=== PATIENT | female | born 1930 | race Caucasian/White ===

== ENCOUNTER 2016-10-07 11:32 | Inpatient (IN) | payer OTHER ==
--- NOTE | 2016-10-07 11:50 | DR.SOBA ---
HPI - Time Seen Time seen: 11:46 - Primary Care Physician Primary Care Physician: Dominick OSBORN - HPI Comment HPI Comment: PATIENT HAVE HISTORY OF CAD S/P STENT PLACEMENT AND INDWELLING PACEMAKER PRESENTS WITH INTERMITTENT CHEST PAIN SHARP SUNSTRENAL AREA AND PROGRESSIVE SOB. PATIENT IS WEAK. SHE IS TAKING HER LASIX AND IS DIURESING. NO FEVER. SLIGHT PRODUCTIVE COUGH CLEAR SPUTUM. HAVE CARDIOLOGY APPOINTMENT NEXT WEEK. - Complaints Chief Complaint Doctors Comments: INCREASING SOB AND CHEST PAIN TIMES ONE WEEK. Chief Complaint:: PT. C/O SHORTNESS OF BREATH AND FATIGUE. PT. WAS SCHEDULED TO SEE DR. OSULLIVAN ON 10/13/16 DUE TO INTERMITTENT CHEST PAIN. - Reviewed Nurses Notes Reviewed: Yes - Source History Provided: Patient - Mode of Arrival Mode of Arrival: Ambulatory - Timing Onset of Chief Complaint: 09/30/16 - Duration Duration: Days - Context Onset:: At Rest, With Light Exertion PE Risk Factors:: None History of:: CHF Currently on:: Neither Prehospital Care:: O2 - Modifying Factors Worsens:: Exertion Improves:: Nothing - Associated Signs and Symptoms Associated Signs and Symptoms: Chest Pain, Leg Swelling - If Chest Pain Quality: Pressure like Location: Substernal - If Cough Cough: Nonproductive PMH - PMH Past Medical History: Yes Past Medical History: Coronary Artery Disease, Diabetes, Hypertension Past Surgical History: Yes Surgical History: Angioplasty/Stents, Hysterectomy, Other Past Surgical History Comment: 3 HERNIA REPAIRS - Family History History of Family Medical Conditions: Yes Family Medical History: Diabetes Mellitus, [place], Coronary Artery Disease - Social History Does patient currently use any type of tobacco product: No Have you used tobacco products in the last 12 months: No Type of Tobacco Use: None Does any household member use tobacco: No Alcohol Use: None Do you use any recreational Drugs:: No Lives With: Family Lives Where: Home - infectious screening In the last 2 months have you had wt loss of >10#?: NO Have you had fever, night sweats or hemotysis?: No Have you traveled outside the country in the last 6 months?: No Isolation: Standard ROS - Review of Systems Constitutional: Weakness, Fatigue. negative: Chills, Fever Eyes: No Symptoms Reported. negative: Eye Pain, Discharge ENTM: No Symptoms Reported. negative: Ear Pain, Nose Discharge, Nose Congestion , Throat Pain Respiratoy: Productive Cough, Short of Breath. negative: Wheezing, Hemoptysis Cardiovascular: Chest Pain, Edema Gastrointestinal/Abdominal: No Symptoms Reported. negative: Abdominal Pain, Nausea, Vomiting Genitourinary: No Symptoms Reported. negative: Dysuria, Hematuria Neurological: Weakness. negative: Headache, Dizziness Musculoskeletal: Muscle Pain Integumentary: No Symptoms Reported. negative: Change in Color, Rash Hematologic/Lymphatic: Easy Bruising Endocrine: No Symptoms Reported All Other Systems: Reviewed and Negative PE - Vital Signs Vitals: Temperature 97.8 F Pulse Rate 68 Respiratory Rate 17 Blood Pressure 152/63 O2 Sat by Pulse Oximetry 99 - General Limitations: No Limitations General Appearance: Alert - Head Head Exam: Normal Inspection - Eyes Eye exam: Normal Appearance - ENT ENT Exam: Normal External Ear Exam - Neck Neck Exam: Trachea Midline. negative: Tenderness, Meningismus, Lymphadenopathy - Chest Chest Inspection: Symmetric Chest Wall Rise. negative: Tenderness - Respiratory Respiratory Exam: Respiratory Distress. negative: Chest Wall Tenderness Respiratory Exam: Bilateral Rhonchi, Upper Rhonchi, Lower Rhonchi - Cardiovascular Cardiovascular Exam: Regular Rate, Normal Rhythm, Normal Heart Sounds - Abdominal Exam Abdominal Exam: Normal Bowel Sounds, Soft. negative: Tenderness - Extremities Extremities Exam: Edema - Back Back Exam: Normal Inspection - Neurologic Neurological Exam: Alert, Oriented X3 - Psychiatric Psychiatric Exam: Normal Affect, Normal Mood - Skin Skin Exam: Normal Color MDM - Additional Information Obtained Additional Information Obtained From: Family - Differential Diagnosis Differential Diagnosis: CHF, COPD, Dysrhythmia, Mycardial Infarction, Pneumonia , Pneumothorax, Respiratory Insufficiency Course - Treatment Treatment: SEE ORDERS - Education/Counseling Education/Counseling: Patient, Family, Education Educated On: Diagnosis ROR - Labs Reviewed Laboratory Results Reviewed?: Yes Result Diagrams: 10/08/16 03:25 10/08/16 03:25 Laboratory: WBC 6.0 X10^3/uL (3.6-10.0) 10/08/16 03:25 RBC 3.37 X10^6/uL (3.5-5.4) L 10/08/16 03:25 Hgb 10.6 g/dL (12.0-16.0) L 10/08/16 03:25 Hct 31.7 % (36.0-47.0) L 10/08/16 03:25 MCV 93.9 fL (80.0-100.0) 10/08/16 03:25 MCH 31.5 pg (27.0-34.0) 10/08/16 03:25 MCHC 33.5 g/dL (33.0-35.0) 10/08/16 03:25 RDW 13.0 % (11.6-16.5) 10/08/16 03:25 Plt Count 146 X10^3/uL (150.0-450.0) L 10/08/16 03:25 Plt Count Comment Adequate (ADEQUATE) 10/08/16 03:25 MPV 9.8 fL (7.4-11.0) 10/08/16 03:25 Neut % 63.7 % (42.0-75.0) 10/08/16 03:25 Lymph % 20.0 % (21.0-51.0) L 10/08/16 03:25 Emmet % 11.5 % (0.0-13.0) 10/08/16 03:25 Eos % 3.7 % (0.9-2.9) H 10/08/16 03:25 Baso % 1.1 % (0.2-1.0) H 10/08/16 03:25 Neut # 3.8 x10^3/uL (2.2-4.8) 10/08/16 03:25 Lymph # 1.2 X10^3/uL (1.3-2.9) L 10/08/16 03:25 Emmet # 0.7 x10^3/uL (0.3-0.8) 10/08/16 03:25 Eos # 0.2 x10^3/uL (0.0-0.2) 10/08/16 03:25 Baso # 0.1 X10^3/uL (0.0-0.1) 10/08/16 03:25 Absolute Nucleated RBC 0.1 /100WBC 10/08/16 03:25 Plt Clumps, EDTA Rare 10/08/16 03:25 Plt Morphology Comment Normal (NORMAL) 10/08/16 03:25 RBC Morphology Normal (NORMAL) 10/08/16 03:25 Sample Site Lba 10/07/16 13:50 ABG pH 7.520 (7.35-7.45) H 10/07/16 13:50 ABG pCO2 43.0 mmHg (35.0-45.0) 10/07/16 13:50 ABG pO2 27.0 mmHg (80.0-100.0) L* 10/07/16 13:50 ABG HCO3 35.1 mmol/L (22-26) H* 10/07/16 13:50 ABG O2 Saturation 60.0 % (90-100) L* 10/07/16 13:50 ABG Base Excess 11.0 mmol/L (-2.0-2.0) H 10/07/16 13:50 Von Test Na 10/07/16 13:50 A-a Gradient 147.0 mmHg 10/07/16 13:50 FiO2 32.000 10/07/16 13:50 Blood Gas Comments Carmina well cs 10/07/16 13:50 Sodium 145 mmol/L (136-145) 10/08/16 03:25 Corrected Sodium TNP 10/08/16 03:25 Potassium 3.2 mmol/L (3.5-5.1) L 10/08/16 03:25 Chloride 104 mmol/L (98-107) 10/08/16 03:25 Carbon Dioxide 32.2 mmol/L (21-32) H 10/08/16 03:25 BUN 37 mg/dL (7-18) H 10/08/16 03:25 Creatinine 2.45 mg/dL (0.55-1.02) H 10/08/16 03:25 Est GFR (MDRD) Af Amer 24 (>60) L 10/08/16 03:25 Est GFR (MDRD) Non-Af 20 (>60) L 10/08/16 03:25 Glucose 97 mg/dL (65-99) 10/08/16 03:25 Calcium 10.3 mg/dL (8.5-10.1) H 10/08/16 03:25 Corrected Calcium 11.1 mg/dL (8.5-10.1) H 10/08/16 03:25 Total Bilirubin 0.30 mg/dL (0.2-1.0) 10/08/16 03:25 AST 24 Units/L (15-37) 10/08/16 03:25 ALT 18 Units/L (12-78) 10/08/16 03:25 Alkaline Phosphatase 54 Units/L (46-116) 10/08/16 03:25 Creatine Kinase 47 Units/L (26-192) 10/08/16 00:35 CK-MB (CK-2) < 1.0 ng/mL (0-4.0) 10/08/16 00:35 CK/CKMB % Calc 2.1 % (<4) 10/08/16 00:35 Troponin I 0.02 ng/mL (0-1.5) 10/08/16 00:35 B-Natriuretic Peptide 597 pg/mL (0-79) H* 10/07/16 12:15 Total Protein 6.8 g/dL (6.4-8.2) 10/08/16 03:25 Albumin 3.0 g/dL (3.4-5.0) L 10/08/16 03:25 Globulin 3.8 g/dL (2.5-4.5) 10/08/16 03:25 Albumin/Globulin Ratio 0.8 Ratio (1.1-2.1) L 10/08/16 03:25 Specimen Type Clean catch urine 10/07/16 12:09 Urine Color Yellow (YELLOW) 10/07/16 12:09 Urine Appearance Clear (CLEAR) 10/07/16 12:09 Urine pH 7.0 (5.0 - 8.0) 10/07/16 12:09 Ur Specific [place] 1.010 (1.000-1.030) 10/07/16 12:09 Urine Protein Negative (NEGATIVE) 10/07/16 12:09 Urine Glucose (UA) Negative (NEGATIVE) 10/07/16 12:09 Urine Ketones Negative (NEGATIVE) 10/07/16 12:09 Urine Occult Blood Negative (NEGATIVE) 10/07/16 12:09 Urine Nitrite Negative (NEGATIVE) 10/07/16 12:09 Urine Bilirubin Negative (NEGATIVE) 10/07/16 12:09 Urine Urobilinogen Normal (NORMAL) 10/07/16 12:09 Ur Leukocyte Esterase 2+ (NEGATIVE) 10/07/16 12:09 Urine RBC 0-2 /HPF (NEGATIVE) 10/07/16 12:09 Urine WBC 0-5 /HPF (NEGATIVE) 10/07/16 12:09 Ur Squamous Epith Cells Moderate /HPF (NEGATIVE) 10/07/16 12:09 Ur Renal Epithelial Cell Few /HPF (NEGATIVE) 10/07/16 12:09 Urine Bacteria Trace /HPF (NEGATIVE) 10/07/16 12:09 Hyaline Casts Rare /LPF (NEGATIVE) 10/07/16 12:09 Ur Culture Indicated? No/not indicated 10/07/16 12:09 - XRAY XRAY Interpreted by: Radiologist XRAY Findings: REPORT DISCUSS WITH PATIENT - EKG Rhythm: Paced (EKG NOTED) - Diagnosis Discharge Problem: Dyspnea Qualifiers: Dyspnea type: shortness of breath Qualified Code(s): R06.02 - Shortness of breath Chest pain Qualifiers: Chest pain type: precordial pain Qualified Code(s): R07.2 - Precordial pain CHF (congestive heart failure) Qualifiers: Congestive heart failure type: combined Congestive heart failure chronicity: acute on chronic Qualified Code(s): I50.43 - Acute on chronic combined systolic (congestive) and diastolic (congestive) heart failure - Discharge Plan Disposition: ADMITTED INPATIENT Condition: Stable - Follow ups/Referrals - Instructions
[2016-10-07 12:35] LABS: BASOPHILS # (AUTO) 0.1 X10^3/uL (0.0-0.1); EOSINOPHILS # (AUTO) 0.1 x10^3/uL (0.0-0.2); EOSINOPHILS % (AUTO) 1.2 % (0.9-2.9); HEMATOCRIT 33.6 % (42.0-54.0); HEMOGLOBIN 11.2 g/dL (13.5-18.0); LYMPHOCYTES # (AUTO) 1.1 X10^3/uL (1.3-2.9); LYMPHOCYTES % (AUTO) 17.9 % (21.0-51.0); MEAN CORPUSCULAR HEMOGLOBIN 31.3 pg (27.0-34.0); MEAN CORPUSCULAR HGB CONC 33.3 g/dL (33.0-35.0); MEAN PLATELET VOLUME 9.2 fL (7.4-11.0); MONOCYTES # (AUTO) 0.6 x10^3/uL (0.3-0.8); MONOCYTES % (AUTO) 9.9 % (0.0-13.0); NEUTROPHILS # (AUTO) 4.3 x10^3/uL (2.2-4.8); PLATELET COUNT 149 X10^3/uL (150.0-450.0); RED BLOOD COUNT 3.57 X10^6/uL (4.7-6.0); RED CELL DISTRIBUTION WIDTH 13.1 % (11.6-16.5); WHITE BLOOD COUNT 6.2 X10^3/uL (3.6-10.0)
[2016-10-07 12:36] LABS: BILIRUBIN,URINE NEGATIVE (NEGATIVE); BLOOD/HEMOGLOBIN,URINE NEGATIVE (NEGATIVE); GLUCOSE, URINE NEGATIVE (NEGATIVE); KETONES,URINE NEGATIVE (NEGATIVE); LEUKOCYTE ESTERASE ,URINE 2+ (NEGATIVE); NITRITES,URINE NEGATIVE (NEGATIVE); PROTEIN,URINE NEGATIVE (NEGATIVE); UROBILINOGEN,URINE NORMAL (NORMAL)
--- NOTE | 2016-10-07 12:36 | RAD ---
HISTORY: Chest pain shortness of breath Study: Chest one view Comparison: None Findings: There is a pacemaker present on the left. The heart is enlarged. No congestive heart failure is note d. No acute alveolar infiltrates or pleural effusions are identified. The bony thorax is unremarkabl e. IMPRESSION: Cardiomegaly without congestive heart failure Lungs clear Reported By:
[2016-10-07 12:46] LABS: APPEARANCE,URINE CLEAR (CLEAR); BACTERIA,URINE TRACE /HPF (NEGATIVE); COLOR,URINE YELLOW (YELLOW); RBC,URINE 0-2 /HPF (NEGATIVE); RENAL EPITHELIAL CELLS,URINE FEW /HPF (NEGATIVE); SQUAMOUS EPITHELIAL CELL,UR MODERATE /HPF (NEGATIVE)
[2016-10-07 12:47] LABS: HYALINE CASTS, URINE RARE /LPF (NEGATIVE)
[2016-10-07 12:48] LABS: BLOOD UREA NITROGEN 36 mg/dL (7-18); CALCIUM 10.9 mg/dL (8.5-10.1); CARBON DIOXIDE 30.7 mmol/L (21-32); CHLORIDE 100 mmol/L (98-107); COR NA(FOR HYPERGLY) 140 mmol/L (136-145); CREATININE 2.62 mg/dL (0.70-1.30); GLUCOSE 125 mg/dL (65-99); SODIUM 139 mmol/L (136-145); TROPONIN I < 0.02 ng/mL (0-1.5); eGFR BLACK RACES 30 (>60); eGFR NON BLACK RACES 25 (>60)
[2016-10-07 12:50] LABS: B-TYPE NATRIURETIC PEPTIDE 597 pg/mL (0-79)
[2016-10-07 12:52] LABS: ALANINE AMINOTRANSFERASE 21 Units/L (12-78); ALBUMIN 3.5 g/dL (3.4-5.0); ALKALINE PHOSPHATASE 59 Units/L (46-116); ASPARTATE AMINO TRANSFERASE 21 Units/L (15-37); CKMB % 2.2 % (<4); CREATINE KINASE 50 Units/L (39-308); CREATINE KINASE MB 1.1 ng/mL (0-4.0); TOTAL PROTEIN 7.8 g/dL (6.4-8.2)
[2016-10-07 14:06] LABS: ABG HCO3 35.1 mmol/L (22-26)
[2016-10-07] MEDS ORDERED: NITROSTAT SL PRN (14:17)
[2016-10-07] MEDS: TAB-A-VITE PO SCH (15:36)
[2016-10-07] MEDS: ZAROXOYLN PO SCH (15:36)
[2016-10-07 19:01] LABS: CKMB % 2.6 % (<4); CREATINE KINASE MB 1.1 ng/mL (0-4.0); TROPONIN I 0.02 ng/mL (0-1.5)
[2016-10-07] MEDS: K-DUR TAB 20 MEQ PO SCH (20:06)
[2016-10-07] MEDS: PRAVACHOL PO SCH (20:06)
[2016-10-07] MEDS: COREG TAB 6.25 MG PO SCH (20:06)
[2016-10-07] MEDS: LASIX IVP SCH (20:06)
[2016-10-07] MEDS: TRAVATAN Z EACHEYE SCH (20:07)
[2016-10-07] MEDS: DUONEB 0.5 MG/3 MG NEB SCH (20:24)
[2016-10-07] MEDS ORDERED: [UNRECOGNIZED DRUG - OTHER] EACHEYE SCH (21:00)
[2016-10-07] MEDS ORDERED: [UNRECOGNIZED DRUG - OTHER] PO SCH (21:00)
[2016-10-08 01:26] LABS: CKMB % 2.1 % (<4); CREATINE KINASE 47 Units/L (26-192); CREATINE KINASE MB < 1.0 ng/mL (0-4.0); TROPONIN I 0.02 ng/mL (0-1.5)
[2016-10-08 05:42] LABS: ALANINE AMINOTRANSFERASE 18 Units/L (12-78); ALKALINE PHOSPHATASE 54 Units/L (46-116); ASPARTATE AMINO TRANSFERASE 24 Units/L (15-37); BLOOD UREA NITROGEN 37 mg/dL (7-18); CALCIUM 10.3 mg/dL (8.5-10.1); CARBON DIOXIDE 32.2 mmol/L (21-32); CHLORIDE 104 mmol/L (98-107); COR CA(FOR HYPOALB) 11.1 mg/dL (8.5-10.1); CREATININE 2.45 mg/dL (0.55-1.02); GLUCOSE 97 mg/dL (65-99); SODIUM 145 mmol/L (136-145); TOTAL PROTEIN 6.8 g/dL (6.4-8.2); eGFR BLACK RACES 24 (>60); eGFR NON BLACK RACES 20 (>60)
[2016-10-08 06:46] LABS: BASOPHILS # (AUTO) 0.1 X10^3/uL (0.0-0.1); EOSINOPHILS # (AUTO) 0.2 x10^3/uL (0.0-0.2); EOSINOPHILS % (AUTO) 3.7 % (0.9-2.9); MEAN CORPUSCULAR VOLUME 93.9 fL (80.0-100.0); MONOCYTES # (AUTO) 0.7 x10^3/uL (0.3-0.8)
[2016-10-08 07:03] LABS: BASOPHILS % (AUTO) 1.1 % (0.2-1.0); HEMATOCRIT 31.7 % (36.0-47.0); HEMOGLOBIN 10.6 g/dL (12.0-16.0); LYMPHOCYTES # (AUTO) 1.2 X10^3/uL (1.3-2.9); MEAN CORPUSCULAR HEMOGLOBIN 31.5 pg (27.0-34.0); MEAN CORPUSCULAR HGB CONC 33.5 g/dL (33.0-35.0); MEAN PLATELET VOLUME 9.8 fL (7.4-11.0); MONOCYTES % (AUTO) 11.5 % (0.0-13.0); NEUTROPHILS # (AUTO) 3.8 x10^3/uL (2.2-4.8); NEUTROPHILS % (AUTO) 63.7 % (42.0-75.0); PLATELET COUNT 146 X10^3/uL (150.0-450.0); RED BLOOD COUNT 3.37 X10^6/uL (3.5-5.4)
[2016-10-08 07:14] LABS: PLATELET MORPHOLOGY COMMENT NORMAL (NORMAL)
[2016-10-08] MEDS ORDERED: ZOFRAN INJ 4 MG VIAL IVP PRN (08:01)
[2016-10-08] MEDS ORDERED: CALCITRIOL PO SCH (09:00)
[2016-10-08] MEDS ORDERED: [UNRECOGNIZED DRUG - OTHER] PO SCH (09:00)
[2016-10-08] MEDS: DUONEB 0.5 MG/3 MG NEB SCH ×2 (09:02→20:35)
[2016-10-08] MEDS: K-DUR TAB 20 MEQ PO SCH ×2 (09:34→21:00)
[2016-10-08] MEDS: COREG TAB 6.25 MG PO SCH ×2 (09:34→21:00)
[2016-10-08] MEDS: ASPIRIN EC 81 MG PO SCH (09:34)
[2016-10-08] MEDS: SYNTHROID 88 mcg TAB PO SCH (09:34)
[2016-10-08] MEDS: PLAVIX PO SCH (09:35)
[2016-10-08] MEDS: LASIX IVP SCH ×2 (09:35→21:01)
[2016-10-08] MEDS: TAB-A-VITE PO SCH (09:35)
[2016-10-08] MEDS: ROCALTROL PO SCH (09:35)
[2016-10-08 13:48] VITALS: BMI 23.2
[2016-10-08] MEDS ORDERED: ARTIFICIAL TEARS DROPS AFFEYE PRN (15:46)
[2016-10-08] MEDS ORDERED: ULTRAM PO PRN (18:23)
--- NOTE | 2016-10-08 18:29 | DR.H&P ---
H&P - History & Physical for Day of: H&P Date: 10/07/16 - Chief Complaint Chief Complaint: chest pain - Allergies Allergies/Adverse Reactions: Allergies Allergy/AdvReac Type Severity Reaction Status Date / Time Codeine Allergy Verified 10/07/16 11:40 - History of Present Illness History of Present Illness: patient is a 86-year-old white female who was admitted from the emergency room after presenting with chest pain and shortness of breath. Patient doesn't have a history of coronary artery disease and seen Dr. Gregg in [place] in the past. Patient is on Lasix and a beta terri for CHF. Patient has been taking medication as prescribed and continues with shortness of breath and mild central chest pain. Patient was admitted for cardiac monitoring and serial cardiac enzymes. - Past Medical History Past Medical History: Coronary Artery Disease, Diabetes, Hypertension - Past Surgical History Surgical History: Angioplasty/Stents, Hysterectomy, Other - Family History Family Medical History: Diabetes Mellitus, [place], Coronary Artery Disease - Social History Does patient currently use any type of tobacco product: No Have you used tobacco products in the last 12 months: No Type of Tobacco Use: None Does any household member use tobacco: No Alcohol Use: None Drug Use: Prescription Drugs - Medications Home Medications: Aspirin [Aspirin Adult Low Dose] 1 tab PO DAILY 10/07/16 [History Confirmed 11/18] Calcitriol [Rocaltrol 0.5 mcg] 1 tab PO DAILY 10/07/16 [History Confirmed ] Carvedilol [COREG TAB 6.25 MG *] 1 tab PO BID 10/07/16 [History Confirmed ] Clopidogrel Bisulfate [PLAVIX TAB 75 MG *] 1 tab PO DAILY 10/07/16 [History Confirmed 10/07/16] Furosemide [LASIX TAB 40 MG *] 1 tab PO BID 10/07/16 [History Confirmed 10/07/16 ] Levothyroxine Sodium [SYNTHROID 88 mcg *] 1 tab PO DAILY 10/07/16 [History Confirmed 10/07/16] Metolazone 2.5 mg PO QOD 10/07/16 [History Confirmed 10/07/16] Multiple Vitamins W/ Minerals [Centrum Silver] 1 tab PO DAILY 10/07/16 [History Confirmed 10/07/16] Potassium Chloride [Potassium Chloride ER] 1 tab PO BID 10/07/16 [History Confirmed 10/07/16] Pravastatin Sodium 1 tab PO HS 10/07/16 [History Confirmed 10/07/16] Sodium Chloride Hypertonic [Sodium Chloride Opthalmic] 1 - 2 drop EACHEYE BID [History Confirmed 10/07/16] Travoprost [TRAVATAN Z (OPHTH) 0.004 % 2.5 ML *] 1 drop EACHEYE HS 10/07/16 [ History Confirmed 10/07/16] - Review of Systems Constitutional: Weakness Eyes: Other (blindness in right eye. left eye "tearing") ENT: No Symptoms Reported Respiratory: Shortness of Breath Cardiovascular: Chest Pain Gastrointestinal: No Symptoms Reported Genitourinary: No Symptoms Reported Musculoskeletal: Back Pain Skin: No Symptoms Reported Neurological: Other (mild bilateral hand tremor) - Physical Exam Vital Signs: Temperature 98.1 F Pulse Rate [Right Brachial] 65 Pulse Rate 82 Respiratory Rate 22 Blood Pressure [Left Arm] 143/72 O2 Sat by Pulse Oximetry 100 Oriented: Normal Eyes: Discharge (thin, water d/c from left eye) Ear: Normal Nose: Normal Throat: Normal Respiratory: Diminished Throughout Cardiovascular: Normal. 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 labs (2) CHF (congestive heart failure) Qualifiers: Congestive heart failure type: combined Congestive heart failure chronicity : acute on chronic Qualified Code(s): I50.43 - Acute on chronic combined systolic (congestive) and diastolic (congestive) heart failure Status: Acute (3) Diabetes mellitus, type II Qualifiers: Diabetes mellitus complication status: D Diabetes mellitus complication detail: D Diabetic retinopathy severity: D Proliferative retinopathy type: P Diabetes mellitus macular edema: D Diabetes mellitus chcf insulin use : D Laterality: L Chronic kidney disease stage: C Status: Chronic (4) HTN (hypertension) Qualifiers: Hypertension type: H Status: Chronic
--- NOTE | 2016-10-08 18:31 | PCM.PROG ---
Progress Note - Progress Note for Day of Date: 10/08/16 - Subjective Subjective: patient continues to complain of mild shortness of breath, and no complaints of the left eye pain - Past Medical Family Social History Past Med/Fam/Surg Hx: No changes since H&P Allergies: Allergies Codeine Allergy (Verified 10/07/16 11:40) - Review of Systems ROS: No change since H&P - Vital Signs and I&O's Vital Signs: Temperature 98.1 F Pulse Rate [Right Brachial] 65 Pulse Rate 82 Respiratory Rate 22 Blood Pressure [Left Arm] 143/72 O2 Sat by Pulse Oximetry 100 Intake and Output: Intake & Output 10/06/16 10/07/16 10/08/16 10/09/16 11:59 11:59 11:59 11:59 Intake Total 140 25 Output Total 500 Balance -360 25 - Physical Exam Oriented: Normal Eyes: Discharge (thin, water d/c from left eye) Ear: Normal Nose: Normal Throat: Normal Cardiovascular: Normal. negative: Edema : Normal Auscultation: Bowel Sounds: Normal Tenderness: Normal Musculoskeletal: Normal Psychiatric: Anxiety Affect: Anxious Speech Pattern: Clear, Appropriate - Laboratory and Diagnostics Result Diagrams: 10/08/16 03:25 10/08/16 03:25 Labs: Laboratory WBC 6.0 X10^3/uL (3.6-10.0) 10/08/16 03:25 RBC 3.37 X10^6/uL (3.5-5.4) L 10/08/16 03:25 Hgb 10.6 g/dL (12.0-16.0) L 10/08/16 03:25 Hct 31.7 % (36.0-47.0) L 10/08/16 03:25 MCV 93.9 fL (80.0-100.0) 10/08/16 03:25 MCH 31.5 pg (27.0-34.0) 10/08/16 03:25 MCHC 33.5 g/dL (33.0-35.0) 10/08/16 03:25 RDW 13.0 % (11.6-16.5) 10/08/16 03:25 Plt Count 146 X10^3/uL (150.0-450.0) L 10/08/16 03:25 Plt Count Comment Adequate (ADEQUATE) 10/08/16 03:25 MPV 9.8 fL (7.4-11.0) 10/08/16 03:25 Neut % 63.7 % (42.0-75.0) 10/08/16 03:25 Lymph % 20.0 % (21.0-51.0) L 10/08/16 03:25 [place] % 11.5 % (0.0-13.0) 10/08/16 03:25 Eos % 3.7 % (0.9-2.9) H 10/08/16 03:25 Baso % 1.1 % (0.2-1.0) H 10/08/16 03:25 Neut # 3.8 x10^3/uL (2.2-4.8) 10/08/16 03:25 Lymph # 1.2 X10^3/uL (1.3-2.9) L 10/08/16 03:25 [place] # 0.7 x10^3/uL (0.3-0.8) 10/08/16 03:25 Eos # 0.2 x10^3/uL (0.0-0.2) 10/08/16 03:25 Baso # 0.1 X10^3/uL (0.0-0.1) 10/08/16 03:25 Absolute Nucleated RBC 0.1 /100WBC 10/08/16 03:25 Plt Clumps, EDTA Rare 10/08/16 03:25 Plt Morphology Comment Normal (NORMAL) 10/08/16 03:25 RBC Morphology Normal (NORMAL) 10/08/16 03:25 Sample Site Lba 10/07/16 13:50 ABG pH 7.520 (7.35-7.45) H 10/07/16 13:50 ABG pCO2 43.0 mmHg (35.0-45.0) 10/07/16 13:50 ABG pO2 27.0 mmHg (80.0-100.0) L* 10/07/16 13:50 ABG HCO3 35.1 mmol/L (22-26) H* 10/07/16 13:50 ABG O2 Saturation 60.0 % (90-100) L* 10/07/16 13:50 ABG Base Excess 11.0 mmol/L (-2.0-2.0) H 10/07/16 13:50 Von Test Na 10/07/16 13:50 A-a Gradient 147.0 mmHg 10/07/16 13:50 FiO2 32.000 10/07/16 13:50 Blood Gas Comments Carmina well cs 10/07/16 13:50 Sodium 145 mmol/L (136-145) 10/08/16 03:25 Corrected Sodium TNP 10/08/16 03:25 Potassium 3.2 mmol/L (3.5-5.1) L 10/08/16 03:25 Chloride 104 mmol/L (98-107) 10/08/16 03:25 Carbon Dioxide 32.2 mmol/L (21-32) H 10/08/16 03:25 BUN 37 mg/dL (7-18) H 10/08/16 03:25 Creatinine 2.45 mg/dL (0.55-1.02) H 10/08/16 03:25 Est GFR (MDRD) Af Amer 24 (>60) L 10/08/16 03:25 Est GFR (MDRD) Non-Af 20 (>60) L 10/08/16 03:25 Glucose 97 mg/dL (65-99) 10/08/16 03:25 Calcium 10.3 mg/dL (8.5-10.1) H 10/08/16 03:25 Corrected Calcium 11.1 mg/dL (8.5-10.1) H 10/08/16 03:25 Total Bilirubin 0.30 mg/dL (0.2-1.0) 10/08/16 03:25 AST 24 Units/L (15-37) 10/08/16 03:25 ALT 18 Units/L (12-78) 10/08/16 03:25 Alkaline Phosphatase 54 Units/L (46-116) 10/08/16 03:25 Creatine Kinase 47 Units/L (26-192) 10/08/16 00:35 CK-MB (CK-2) < 1.0 ng/mL (0-4.0) 10/08/16 00:35 CK/CKMB % Calc 2.1 % (<4) 10/08/16 00:35 Troponin I 0.02 ng/mL (0-1.5) 10/08/16 00:35 B-Natriuretic Peptide 597 pg/mL (0-79) H* 10/07/16 12:15 Total Protein 6.8 g/dL (6.4-8.2) 10/08/16 03:25 Albumin 3.0 g/dL (3.4-5.0) L 10/08/16 03:25 Globulin 3.8 g/dL (2.5-4.5) 10/08/16 03:25 Albumin/Globulin Ratio 0.8 Ratio (1.1-2.1) L 10/08/16 03:25 Specimen Type Clean catch urine 10/07/16 12:09 Urine Color Yellow (YELLOW) 10/07/16 12:09 Urine Appearance Clear (CLEAR) 10/07/16 12:09 Urine pH 7.0 (5.0 - 8.0) 10/07/16 12:09 Ur Specific [place] 1.010 (1.000-1.030) 10/07/16 12:09 Urine Protein Negative (NEGATIVE) 10/07/16 12:09 Urine Glucose (UA) Negative (NEGATIVE) 10/07/16 12:09 Urine Ketones Negative (NEGATIVE) 10/07/16 12:09 Urine Occult Blood Negative (NEGATIVE) 10/07/16 12:09 Urine Nitrite Negative (NEGATIVE) 10/07/16 12:09 Urine Bilirubin Negative (NEGATIVE) 10/07/16 12:09 Urine Urobilinogen Normal (NORMAL) 10/07/16 12:09 Ur Leukocyte Esterase 2+ (NEGATIVE) 10/07/16 12:09 Urine RBC 0-2 /HPF (NEGATIVE) 10/07/16 12:09 Urine WBC 0-5 /HPF (NEGATIVE) 10/07/16 12:09 Ur Squamous Epith Cells Moderate /HPF (NEGATIVE) 10/07/16 12:09 Ur Renal Epithelial Cell Few /HPF (NEGATIVE) 10/07/16 12:09 Urine Bacteria Trace /HPF (NEGATIVE) 10/07/16 12:09 Hyaline Casts Rare /LPF (NEGATIVE) 10/07/16 12:09 Ur Culture Indicated? No/not indicated 10/07/16 12:09 - Plan (1) Chest pain Status: Acute Qualifiers: Chest pain type: precordial pain Ischemic chest pain type: I Qualified Code(s): R07.2 - Precordial pain Plan: continue cardiac monitoring, resume home meds. bp and lipid control. continue lasix, strict I & O's. repeat am labs and chest xray (2) CHF (congestive heart failure) Status: Acute Qualifiers: Congestive heart failure type: combined Congestive heart failure chronicity : acute on chronic Qualified Code(s): I50.43 - Acute on chronic combined systolic (congestive) and diastolic (congestive) heart failure (3) Diabetes mellitus, type II Status: Chronic Qualifiers: Diabetes mellitus complication status: D Diabetes mellitus complication detail: D Diabetic retinopathy severity: D Proliferative retinopathy type: P Diabetes mellitus macular edema: D Diabetes mellitus jail insulin use : D Laterality: L Chronic kidney disease stage: C (4) HTN (hypertension) Status: Chronic Qualifiers: Hypertension type: H
[2016-10-08] MEDS: TRAVATAN Z EACHEYE SCH (21:01)
[2016-10-08] MEDS: PRAVACHOL PO SCH (21:01)
[2016-10-08] MEDS: ZADITOR EYE DROPS AFFEYE PRN (21:03)
[2016-10-09] MEDS ORDERED: HEPARIN SODIUM INJ 5000 UNITS ONE (05:19)
[2016-10-09 06:21] LABS: BASOPHILS # (AUTO) 0.1 X10^3/uL (0.0-0.1); BASOPHILS % (AUTO) 0.9 % (0.2-1.0); EOSINOPHILS # (AUTO) 0.2 x10^3/uL (0.0-0.2); EOSINOPHILS % (AUTO) 3.3 % (0.9-2.9); HEMATOCRIT 31.4 % (36.0-47.0); HEMOGLOBIN 10.7 g/dL (12.0-16.0); LYMPHOCYTES # (AUTO) 1.6 X10^3/uL (1.3-2.9); LYMPHOCYTES % (AUTO) 25.8 % (21.0-51.0); MEAN CORPUSCULAR HEMOGLOBIN 31.8 pg (27.0-34.0); MEAN CORPUSCULAR HGB CONC 33.9 g/dL (33.0-35.0); MEAN CORPUSCULAR VOLUME 93.7 fL (80.0-100.0); MEAN PLATELET VOLUME 9.5 fL (7.4-11.0); MONOCYTES # (AUTO) 0.8 x10^3/uL (0.3-0.8); MONOCYTES % (AUTO) 12.8 % (0.0-13.0); NEUTROPHILS # (AUTO) 3.6 x10^3/uL (2.2-4.8); NEUTROPHILS % (AUTO) 57.2 % (42.0-75.0); PLATELET COUNT 143 X10^3/uL (150.0-450.0); RED BLOOD COUNT 3.35 X10^6/uL (3.5-5.4); WHITE BLOOD COUNT 6.3 X10^3/uL (3.6-10.0)
[2016-10-09 06:45] LABS: ALBUMIN 2.9 g/dL (3.4-5.0); CALCIUM 10.3 mg/dL (8.5-10.1); CARBON DIOXIDE 31.2 mmol/L (21-32); COR CA(FOR HYPOALB) 11.2 mg/dL (8.5-10.1); CREATININE 2.62 mg/dL (0.55-1.02); TOTAL PROTEIN 6.8 g/dL (6.4-8.2)
--- NOTE | 2016-10-09 06:59 | RAD ---
HISTORY: CHF Study: Single-view chest, done portably Comparison: October 07, 2016 Findings: Cardiac monitoring electrodes are noted on the chest. Left-sided pacemaker is present with intact le ads. Trachea is midline. There is cardiomegaly with atherosclerotic calcification and uncoiling of t he aortic arch. There is hyperinflation of the lungs with increased interstitial markings. In the ap propriate clinical setting findings may indicate COPD. No CHF, infiltrate, pleural fluid or pneumoth orax is seen. Osseous structures appear intact. IMPRESSION: Hypertensive configuration. Hyperinflation of the lungs with increased interstitial markings. In the appropriate clinical settin g, findings may indicate COPD. An acute process not identified. Reported By:
[2016-10-09] MEDS: DUONEB 0.5 MG/3 MG NEB SCH ×2 (08:34→20:38)
[2016-10-09] MEDS: TAB-A-VITE PO SCH (08:42)
[2016-10-09] MEDS: PLAVIX PO SCH (08:42)
[2016-10-09] MEDS: ZAROXOYLN PO SCH (08:42)
[2016-10-09] MEDS: ROCALTROL PO SCH (08:42)
[2016-10-09] MEDS: COREG TAB 6.25 MG PO SCH ×2 (08:43→21:39)
[2016-10-09] MEDS: ASPIRIN EC 81 MG PO SCH (08:43)
[2016-10-09] MEDS: SYNTHROID 88 mcg TAB PO SCH (08:43)
[2016-10-09] MEDS: K-DUR TAB 20 MEQ PO SCH ×2 (08:43→21:39)
[2016-10-09] MEDS: LASIX IVP SCH ×2 (08:43→21:39)
[2016-10-09] MEDS: ZADITOR EYE DROPS AFFEYE PRN (09:38)
[2016-10-09] MEDS: NS + KCL 20 MEQ/L 1,000 ML IV SCH (13:44)
[2016-10-09] MEDS: SOLU-MEDROL 40 MG VIAL IVP SCH ×2 (13:44→21:38)
--- NOTE | 2016-10-09 15:48 | PCM.PROG ---
Progress Note - Progress Note for Day of Date: 10/09/16 - Subjective Subjective: patient continues to complain of mild shortness of breath and chest congestion and no complaints of the left eye pain - Past Medical Family Social History Past Med/Fam/Surg Hx: No changes since H&P Allergies: Allergies Codeine Allergy (Verified 10/07/16 11:40) - Review of Systems ROS: No change since H&P - Vital Signs and I&O's Intake and Output: Intake & Output 10/07/16 10/08/16 10/09/16 10/10/16 11:59 11:59 11:59 11:59 Intake Total 40 Balance 40 - Physical Exam Oriented: Normal Eyes: Discharge (thin, water d/c from left eye) Ear: Normal Nose: Normal Throat: Normal Respiratory: Diminished, Rhonchi Cardiovascular: Normal. negative: Edema : Normal Auscultation: Bowel Sounds: Normal Tenderness: Normal Musculoskeletal: Normal Psychiatric: Anxiety Affect: Anxious Speech Pattern: Clear, Appropriate - Laboratory and Diagnostics Result Diagrams: 10/09/16 03:10 10/09/16 03:10 Labs: Laboratory WBC 6.3 X10^3/uL (3.6-10.0) 10/09/16 03:10 RBC 3.35 X10^6/uL (3.5-5.4) L 10/09/16 03:10 Hgb 10.7 g/dL (12.0-16.0) L 10/09/16 03:10 Hct 31.4 % (36.0-47.0) L 10/09/16 03:10 MCV 93.7 fL (80.0-100.0) 10/09/16 03:10 MCH 31.8 pg (27.0-34.0) 10/09/16 03:10 MCHC 33.9 g/dL (33.0-35.0) 10/09/16 03:10 RDW 13.0 % (11.6-16.5) 10/09/16 03:10 Plt Count 143 X10^3/uL (150.0-450.0) L 10/09/16 03:10 Plt Count Comment Adequate (ADEQUATE) 10/08/16 03:25 MPV 9.5 fL (7.4-11.0) 10/09/16 03:10 Neut % 57.2 % (42.0-75.0) 10/09/16 03:10 Lymph % 25.8 % (21.0-51.0) 10/09/16 03:10 [place] % 12.8 % (0.0-13.0) 10/09/16 03:10 Eos % 3.3 % (0.9-2.9) H 10/09/16 03:10 Baso % 0.9 % (0.2-1.0) 10/09/16 03:10 Neut # 3.6 x10^3/uL (2.2-4.8) 10/09/16 03:10 Lymph # 1.6 X10^3/uL (1.3-2.9) 10/09/16 03:10 [place] # 0.8 x10^3/uL (0.3-0.8) 10/09/16 03:10 Eos # 0.2 x10^3/uL (0.0-0.2) 10/09/16 03:10 Baso # 0.1 X10^3/uL (0.0-0.1) 10/09/16 03:10 Absolute Nucleated RBC 0.0 /100WBC 10/09/16 03:10 Plt Clumps, EDTA Rare 10/08/16 03:25 Plt Morphology Comment Normal (NORMAL) 10/08/16 03:25 RBC Morphology Normal (NORMAL) 10/08/16 03:25 Sample Site Lba 10/07/16 13:50 ABG pH 7.520 (7.35-7.45) H 10/07/16 13:50 ABG pCO2 43.0 mmHg (35.0-45.0) 10/07/16 13:50 ABG pO2 27.0 mmHg (80.0-100.0) L* 10/07/16 13:50 ABG HCO3 35.1 mmol/L (22-26) H* 10/07/16 13:50 ABG O2 Saturation 60.0 % (90-100) L* 10/07/16 13:50 ABG Base Excess 11.0 mmol/L (-2.0-2.0) H 10/07/16 13:50 Von Test Na 10/07/16 13:50 A-a Gradient 147.0 mmHg 10/07/16 13:50 FiO2 32.000 10/07/16 13:50 Blood Gas Comments Carmina well cs 10/07/16 13:50 Sodium 143 mmol/L (136-145) 10/09/16 03:10 Corrected Sodium 144 mmol/L (136-145) 10/09/16 03:10 Potassium 3.4 mmol/L (3.5-5.1) L 10/09/16 03:10 Chloride 103 mmol/L (98-107) 10/09/16 03:10 Carbon Dioxide 31.2 mmol/L (21-32) 10/09/16 03:10 BUN 40 mg/dL (7-18) H 10/09/16 03:10 Creatinine 2.62 mg/dL (0.55-1.02) H 10/09/16 03:10 Est GFR (MDRD) Af Amer 22 (>60) L 10/09/16 03:10 Est GFR (MDRD) Non-Af 18 (>60) L 10/09/16 03:10 Glucose 126 mg/dL (65-99) H 10/09/16 03:10 Calcium 10.3 mg/dL (8.5-10.1) H 10/09/16 03:10 Corrected Calcium 11.2 mg/dL (8.5-10.1) H 10/09/16 03:10 Total Bilirubin 0.40 mg/dL (0.2-1.0) 10/09/16 03:10 AST 19 Units/L (15-37) 10/09/16 03:10 ALT 19 Units/L (12-78) 10/09/16 03:10 Alkaline Phosphatase 51 Units/L (46-116) 10/09/16 03:10 Creatine Kinase 47 Units/L (26-192) 10/08/16 00:35 CK-MB (CK-2) < 1.0 ng/mL (0-4.0) 10/08/16 00:35 CK/CKMB % Calc 2.1 % (<4) 10/08/16 00:35 Troponin I 0.02 ng/mL (0-1.5) 10/08/16 00:35 B-Natriuretic Peptide 597 pg/mL (0-79) H* 10/07/16 12:15 Total Protein 6.8 g/dL (6.4-8.2) 10/09/16 03:10 Albumin 2.9 g/dL (3.4-5.0) L 10/09/16 03:10 Globulin 3.9 g/dL (2.5-4.5) 10/09/16 03:10 Albumin/Globulin Ratio 0.7 Ratio (1.1-2.1) L 10/09/16 03:10 Specimen Type Clean catch urine 10/07/16 12:09 Urine Color Yellow (YELLOW) 10/07/16 12:09 Urine Appearance Clear (CLEAR) 10/07/16 12:09 Urine pH 7.0 (5.0 - 8.0) 10/07/16 12:09 Ur Specific [place] 1.010 (1.000-1.030) 10/07/16 12:09 Urine Protein Negative (NEGATIVE) 10/07/16 12:09 Urine Glucose (UA) Negative (NEGATIVE) 10/07/16 12:09 Urine Ketones Negative (NEGATIVE) 10/07/16 12:09 Urine Occult Blood Negative (NEGATIVE) 10/07/16 12:09 Urine Nitrite Negative (NEGATIVE) 10/07/16 12:09 Urine Bilirubin Negative (NEGATIVE) 10/07/16 12:09 Urine Urobilinogen Normal (NORMAL) 10/07/16 12:09 Ur Leukocyte Esterase 2+ (NEGATIVE) 10/07/16 12:09 Urine RBC 0-2 /HPF (NEGATIVE) 10/07/16 12:09 Urine WBC 0-5 /HPF (NEGATIVE) 10/07/16 12:09 Ur Squamous Epith Cells Moderate /HPF (NEGATIVE) 10/07/16 12:09 Ur Renal Epithelial Cell Few /HPF (NEGATIVE) 10/07/16 12:09 Urine Bacteria Trace /HPF (NEGATIVE) 10/07/16 12:09 Hyaline Casts Rare /LPF (NEGATIVE) 10/07/16 12:09 Ur Culture Indicated? No/not indicated 10/07/16 12:09 - Plan (1) Chest pain Status: Acute Qualifiers: Chest pain type: precordial pain Ischemic chest pain type: I Qualified Code(s): R07.2 - Precordial pain Plan: continue cardiac monitoring, resume home meds. bp and lipid control. continue lasix, strict I & O's. repeat am labs and chest xray (2) CHF (congestive heart failure) Status: Acute Qualifiers: Congestive heart failure type: combined Congestive heart failure chronicity : acute on chronic Qualified Code(s): I50.43 - Acute on chronic combined systolic (congestive) and diastolic (congestive) heart failure (3) Diabetes mellitus, type II Status: Chronic Qualifiers: Diabetes mellitus complication status: D Diabetes mellitus complication detail: D Diabetic retinopathy severity: D Proliferative retinopathy type: P Diabetes mellitus macular edema: D Diabetes mellitus superintendent container terminal insulin use : D Laterality: L Chronic kidney disease stage: C (4) HTN (hypertension) Status: Chronic Qualifiers: Hypertension type: H (5) Bronchitis Status: Acute Plan: resp consult, solu medrol iv, rocephin 1gm iv, repeat am labs, cxr
[2016-10-09] MEDS: PRAVACHOL PO SCH (21:39)
[2016-10-09] MEDS: TRAVATAN Z EACHEYE SCH (21:39)
[2016-10-10] MEDS: SOLU-MEDROL 40 MG VIAL IVP SCH (05:20)
[2016-10-10 06:20] LABS: BASOPHILS % (AUTO) 0.2 % (0.2-1.0); HEMATOCRIT 33.1 % (36.0-47.0); HEMOGLOBIN 11.2 g/dL (12.0-16.0); LYMPHOCYTES % (AUTO) 14.3 % (21.0-51.0); MEAN CORPUSCULAR HEMOGLOBIN 31.6 pg (27.0-34.0); MEAN PLATELET VOLUME 9.4 fL (7.4-11.0); MONOCYTES # (AUTO) 0.1 x10^3/uL (0.3-0.8); MONOCYTES % (AUTO) 1.6 % (0.0-13.0); NEUTROPHILS # (AUTO) 5.7 x10^3/uL (2.2-4.8); NEUTROPHILS % (AUTO) 83.9 % (42.0-75.0); PLATELET COUNT 162 X10^3/uL (150.0-450.0); RED BLOOD COUNT 3.56 X10^6/uL (3.5-5.4); RED CELL DISTRIBUTION WIDTH 13.1 % (11.6-16.5); WHITE BLOOD COUNT 6.8 X10^3/uL (3.6-10.0)
[2016-10-10 06:25] LABS: ALBUMIN 2.9 g/dL (3.4-5.0); CALCIUM 10.8 mg/dL (8.5-10.1); CARBON DIOXIDE 31.3 mmol/L (21-32); COR CA(FOR HYPOALB) 11.7 mg/dL (8.5-10.1); CREATININE 2.67 mg/dL (0.55-1.02); TOTAL PROTEIN 7.3 g/dL (6.4-8.2)
--- NOTE | 2016-10-10 07:46 | RAD ---
HISTORY: CHF Study: Single-view chest Comparison: October 09, 2016 Findings: The trachea is midline. The cardiac silhouette is enlarged in size but stable from prior exam. A c ardiac pacing device is in place. There are unchanged increased interstitial markings which could re flect COPD. No acute infiltrate, consolidation, or pleural effusion is identified. The bony thorax i s grossly intact. IMPRESSION: 1. Cardiomegaly and unchanged increased interstitial markings which could reflect COPD. Reported By:
[2016-10-10] MEDS: ROCEPHIN VIAL 1 GM 1 GM in NS 50 ML IV + SPIKE MINIBAG* 50 ML IV SCH (08:29)
[2016-10-10] MEDS: LASIX IVP SCH (08:30)
[2016-10-10] MEDS: ROCALTROL PO SCH (08:30)
[2016-10-10] MEDS: TAB-A-VITE PO SCH (08:30)
[2016-10-10] MEDS: COREG TAB 6.25 MG PO SCH ×2 (08:30→21:27)
[2016-10-10] MEDS: ASPIRIN EC 81 MG PO SCH (08:30)
[2016-10-10] MEDS: SYNTHROID 88 mcg TAB PO SCH (08:30)
[2016-10-10] MEDS: K-DUR TAB 20 MEQ PO SCH ×2 (08:30→21:27)
[2016-10-10] MEDS: PLAVIX PO SCH (08:31)
[2016-10-10] MEDS: DUONEB 0.5 MG/3 MG NEB SCH ×2 (08:36→21:06)
[2016-10-10] MEDS ORDERED: NS + KCL 20 MEQ/L 1,000 ML IV ONE (14:18)
[2016-10-10] MEDS: NS + KCL 20 MEQ/L 1,000 ML IV SCH (16:42)
[2016-10-10] MEDS: PRAVACHOL PO SCH (21:27)
[2016-10-10] MEDS: TRAVATAN Z EACHEYE SCH (21:28)
[2016-10-11 06:17] LABS: BASOPHILS % (AUTO) 0.1 % (0.2-1.0); HEMATOCRIT 31.1 % (36.0-47.0); LYMPHOCYTES # (AUTO) 1.1 X10^3/uL (1.3-2.9); LYMPHOCYTES % (AUTO) 9.6 % (21.0-51.0); MEAN CORPUSCULAR HEMOGLOBIN 33.2 pg (27.0-34.0); MEAN CORPUSCULAR HGB CONC 35.6 g/dL (33.0-35.0); MEAN CORPUSCULAR VOLUME 93.5 fL (80.0-100.0); MEAN PLATELET VOLUME 9.2 fL (7.4-11.0); MONOCYTES # (AUTO) 0.6 x10^3/uL (0.3-0.8); MONOCYTES % (AUTO) 5.4 % (0.0-13.0); NEUTROPHILS % (AUTO) 84.9 % (42.0-75.0); PLATELET COUNT 157 X10^3/uL (150.0-450.0); RED BLOOD COUNT 3.33 X10^6/uL (3.5-5.4); RED CELL DISTRIBUTION WIDTH 13.1 % (11.6-16.5); WHITE BLOOD COUNT 11.8 X10^3/uL (3.6-10.0)
[2016-10-11 06:28] LABS: CALCIUM 10.4 mg/dL (8.5-10.1); CARBON DIOXIDE 28.2 mmol/L (21-32); CREATININE 2.52 mg/dL (0.55-1.02)
[2016-10-11] MEDS: DUONEB 0.5 MG/3 MG NEB SCH ×2 (08:21→21:12)
[2016-10-11] MEDS: TAB-A-VITE PO SCH (09:53)
[2016-10-11] MEDS: SYNTHROID 88 mcg TAB PO SCH (09:53)
[2016-10-11] MEDS: COREG TAB 6.25 MG PO SCH ×2 (09:53→20:57)
[2016-10-11] MEDS: ROCALTROL PO SCH (09:53)
[2016-10-11] MEDS: ASPIRIN EC 81 MG PO SCH (09:54)
[2016-10-11] MEDS: ROCEPHIN VIAL 1 GM 1 GM in NS 50 ML IV + SPIKE MINIBAG* 50 ML IV SCH (09:54)
[2016-10-11] MEDS: K-DUR TAB 20 MEQ PO SCH ×2 (09:54→20:57)
[2016-10-11] MEDS: PLAVIX PO SCH (09:54)
[2016-10-11] MEDS: ZAROXOYLN PO SCH (15:01)
[2016-10-11] MEDS: NS + KCL 20 MEQ/L 1,000 ML IV SCH (15:01)
[2016-10-11] MEDS: CHRONULAC PO SCH (17:46)
[2016-10-11 17:54] LABS: ABG BASE EXCESS 8.3 mmol/L (-2.0-2.0)
[2016-10-11 17:55] LABS: ABG ALLEN TEST POS; ABG HCO3 32.8 mmol/L (22-26)
[2016-10-11] MEDS ORDERED: ROBITUSSIN DM PO PRN (19:00)
[2016-10-11] MEDS: PRAVACHOL PO SCH (20:56)
[2016-10-11] MEDS: TRAVATAN Z EACHEYE SCH (20:57)
[2016-10-11] MEDS: NS 1000 ML 1,000 ML IV SCH (21:02)
--- NOTE | 2016-10-11 21:13 | CT ---
Indication: Shortness of breath. Exam: CT chest without contrast. Technique: Axial spiral images were obtained from the level above the clavicles through the adrenals without contrast and reconstructed at 5 mm intervals. Coronal and sagittal multiplanar reconstructi ons were performed. Comparison: None. Findings: The thyroid gland is unremarkable. There is a pacemaker on the left with multipolar leads extending into the heart which appear in good position. There is calcified plaque throughout the aor ta which is normal caliber. There couple small lymph nodes in the AP window and pretracheal region w ith the largest measuring 8 mm. There is a small hiatal hernia and there is an ill-defined hypodense mass seen along the infrahilar region on the left extending inferiorly along the anterior aspect of the esophagus measures 5.4 x 3.3 cm. This has measures 37 Hounsfield units. There is a 3 cm cystic mass upper pole left kidney . The lungs are hyperinflated and emphysematous with mild pleural thicke cheyanne and parenchymal scarring along both apices extending into the upper lobes posterior laterally . There are subsegmental parenchymal opacities along the lung bases posteriorly which is more promine nt on the right . There is a tiny right pleural effusion with mild pleural thickening posteriorly on the left. There is subsegmental opacity in the right middle lobe medially. There is a 5 mm subpleur al nodule right lower lobe laterally with 2 mm subpleural nodules for inferiorly and in the right mi ddle lobe anteriorly. No axillary adenopathy is seen. Moderate degenerative changes are seen through out the spine with prominent kyphotic deformity along the mid thoracic upper thoracic region. No obv ious acute fracture is seen. Impression: 5.4 cm mass along the left infrahilar region extending into the lower mediastinum which could repres ent a complex mediastinal cyst vs mass of other etiology. Recommend a followup CT scan with contrast for further characterization. Small hiatal hernia and small lymph nodes in the mediastinum which are not pathologic by size criter ia. Mild subsegmental infiltrates or atelectasis along the lung bases posteriorly which is more prominen t on the right with an associated small right pleural effusion and mild pleural thickening posterior ly on the left. Recommend followup. COPD with mild biapical pleural thickening and parenchymal scarring along the upper lobes. Small pulmonary nodules scattered along the right lung base measuring up to 5 mm, recommend short-te rm followup . Left renal cyst. Reported By:
[2016-10-11] MEDS ORDERED: NS 1000 ML 1,000 ML IV ONE (22:11)
[2016-10-12 05:26] LABS: ALBUMIN 2.7 g/dL (3.4-5.0); CALCIUM 10.3 mg/dL (8.5-10.1); CARBON DIOXIDE 29.1 mmol/L (21-32); COR CA(FOR HYPOALB) 11.3 mg/dL (8.5-10.1); CREATININE 1.88 mg/dL (0.55-1.02); TOTAL PROTEIN 6.6 g/dL (6.4-8.2)
[2016-10-12 05:27] LABS: BASOPHILS % (AUTO) 0.3 % (0.2-1.0); EOSINOPHILS # (AUTO) 0.1 x10^3/uL (0.0-0.2); EOSINOPHILS % (AUTO) 0.9 % (0.9-2.9); HEMATOCRIT 31.8 % (36.0-47.0); HEMOGLOBIN 10.5 g/dL (12.0-16.0); LYMPHOCYTES # (AUTO) 1.9 X10^3/uL (1.3-2.9); LYMPHOCYTES % (AUTO) 23.7 % (21.0-51.0); MEAN CORPUSCULAR HEMOGLOBIN 31.2 pg (27.0-34.0); MEAN CORPUSCULAR HGB CONC 33.1 g/dL (33.0-35.0); MEAN CORPUSCULAR VOLUME 94.5 fL (80.0-100.0); MEAN PLATELET VOLUME 9.6 fL (7.4-11.0); MONOCYTES # (AUTO) 0.6 x10^3/uL (0.3-0.8); MONOCYTES % (AUTO) 7.4 % (0.0-13.0); NEUTROPHILS # (AUTO) 5.4 x10^3/uL (2.2-4.8); NEUTROPHILS % (AUTO) 67.7 % (42.0-75.0); PLATELET COUNT 168 X10^3/uL (150.0-450.0); RED BLOOD COUNT 3.37 X10^6/uL (3.5-5.4); RED CELL DISTRIBUTION WIDTH 13.3 % (11.6-16.5); WHITE BLOOD COUNT 7.9 X10^3/uL (3.6-10.0)
[2016-10-12] MEDS: ROCEPHIN VIAL 1 GM 1 GM in NS 50 ML IV + SPIKE MINIBAG* 50 ML IV SCH (09:01)
[2016-10-12] MEDS: CHRONULAC PO SCH (09:03)
[2016-10-12] MEDS: SYNTHROID 88 mcg TAB PO SCH (09:05)
[2016-10-12] MEDS: ROCALTROL PO SCH ×2 (09:05→09:09)
[2016-10-12] MEDS: K-DUR TAB 20 MEQ PO SCH ×2 (09:06→20:49)
[2016-10-12] MEDS: PLAVIX PO SCH (09:07)
[2016-10-12] MEDS: ASPIRIN EC 81 MG PO SCH (09:07)
[2016-10-12] MEDS: COREG TAB 6.25 MG PO SCH ×2 (09:07→20:49)
[2016-10-12] MEDS: TAB-A-VITE PO SCH (09:08)
[2016-10-12] MEDS: DUONEB 0.5 MG/3 MG NEB SCH ×2 (09:22→20:13)
[2016-10-12] MEDS: GENTAMICIN SULF (OPHTH) AFFEYE SCH ×3 (13:18→20:51)
[2016-10-12] MEDS: PRAVACHOL PO SCH (20:49)
[2016-10-12] MEDS: NS 1000 ML 1,000 ML IV SCH (20:51)
[2016-10-12] MEDS: TRAVATAN Z EACHEYE SCH (20:52)
[2016-10-13] MEDS: GENTAMICIN SULF (OPHTH) AFFEYE SCH ×4 (03:13→22:37)
[2016-10-13 05:46] LABS: ALBUMIN 2.5 g/dL (3.4-5.0); CALCIUM 10.1 mg/dL (8.5-10.1); CARBON DIOXIDE 28.7 mmol/L (21-32); COR CA(FOR HYPOALB) 11.3 mg/dL (8.5-10.1); CREATININE 1.53 mg/dL (0.55-1.02); MAGNESIUM 1.7 mg/dL (1.7-2.9); TOTAL PROTEIN 6.2 g/dL (6.4-8.2)
[2016-10-13 06:56] LABS: BASOPHILS % (AUTO) 0.4 % (0.2-1.0); EOSINOPHILS # (AUTO) 0.2 x10^3/uL (0.0-0.2); EOSINOPHILS % (AUTO) 3.3 % (0.9-2.9); HEMATOCRIT 31.7 % (36.0-47.0); HEMOGLOBIN 10.5 g/dL (12.0-16.0); LYMPHOCYTES # (AUTO) 1.9 X10^3/uL (1.3-2.9); LYMPHOCYTES % (AUTO) 33.9 % (21.0-51.0); MEAN CORPUSCULAR HEMOGLOBIN 31.1 pg (27.0-34.0); MEAN CORPUSCULAR HGB CONC 33.2 g/dL (33.0-35.0); MEAN CORPUSCULAR VOLUME 93.7 fL (80.0-100.0); MEAN PLATELET VOLUME 9.1 fL (7.4-11.0); MONOCYTES # (AUTO) 0.5 x10^3/uL (0.3-0.8); MONOCYTES % (AUTO) 8.6 % (0.0-13.0); NEUTROPHILS % (AUTO) 53.8 % (42.0-75.0); PLATELET COUNT 59 X10^3/uL (150.0-450.0); RED BLOOD COUNT 3.38 X10^6/uL (3.5-5.4); RED CELL DISTRIBUTION WIDTH 13.3 % (11.6-16.5); WHITE BLOOD COUNT 5.6 X10^3/uL (3.6-10.0)
--- NOTE | 2016-10-13 08:22 | PCM.PROG ---
Progress Note - Progress Note for Day of Date: 10/12/16 - Subjective Subjective: PT CO MILD SAUCEDA, LEFT EYE CRUSTING, SENSATIVE TO LIGHT. OBTAIN EYE CULTURE, STARTED ON GENT EYE DROPS, WILL REPEAT AM LABS - Past Medical Family Social History Past Med/Fam/Surg Hx: No changes since H&P Allergies: Allergies Codeine Allergy (Verified 10/07/16 11:40) Dextromethorphan [From Robitussin-DM] Allergy (Verified 10/12/16 11:25) Ethanol [From Robitussin] Allergy (Verified 10/12/16 11:25) Guaifenesin [From Robitussin] Allergy (Verified 10/12/16 11:25) - Review of Systems ROS: No change since H&P - Vital Signs and I&O's Vital Signs: Temperature 98.2 F Pulse Rate [Left Brachial] 60 Pulse Rate [Right Brachial] 60 Pulse Rate 76 Respiratory Rate 24 Blood Pressure [Right Arm] 143/67 Blood Pressure [Left Arm] 143/67 O2 Sat by Pulse Oximetry 99 Intake and Output: Intake & Output 10/10/16 10/11/16 10/12/16 10/13/16 11:59 11:59 11:59 11:59 Intake Total 900 1520 1040 1380 Balance 900 1520 1040 1380 - Physical Exam Oriented: Normal Eyes: Discharge (thin, water d/c from left eye) Ear: Normal Nose: Normal Throat: Normal Respiratory: Diminished, Rhonchi Cardiovascular: Normal. negative: Edema : Normal Auscultation: Bowel Sounds: Normal Tenderness: Normal Musculoskeletal: Normal Psychiatric: Anxiety Affect: Anxious Speech Pattern: Clear, Appropriate - Laboratory and Diagnostics Result Diagrams: 10/13/16 03:15 10/13/16 03:15 Labs: 10/12/16 13:09 Eye - Left Gram Stain - Final Laboratory WBC 5.6 X10^3/uL (3.6-10.0) 10/13/16 03:15 RBC 3.38 X10^6/uL (3.5-5.4) L 10/13/16 03:15 Hgb 10.5 g/dL (12.0-16.0) L 10/13/16 03:15 Hct 31.7 % (36.0-47.0) L 10/13/16 03:15 MCV 93.7 fL (80.0-100.0) 10/13/16 03:15 MCH 31.1 pg (27.0-34.0) 10/13/16 03:15 MCHC 33.2 g/dL (33.0-35.0) 10/13/16 03:15 RDW 13.3 % (11.6-16.5) 10/13/16 03:15 Plt Count 59 X10^3/uL (150.0-450.0) L 10/13/16 03:15 Plt Count Comment Adequate (ADEQUATE) 10/08/16 03:25 MPV 9.1 fL (7.4-11.0) 10/13/16 03:15 Neut % 53.8 % (42.0-75.0) 10/13/16 03:15 Lymph % 33.9 % (21.0-51.0) 10/13/16 03:15 [place] % 8.6 % (0.0-13.0) 10/13/16 03:15 Eos % 3.3 % (0.9-2.9) H 10/13/16 03:15 Baso % 0.4 % (0.2-1.0) 10/13/16 03:15 Neut # 3.0 x10^3/uL (2.2-4.8) 10/13/16 03:15 Lymph # 1.9 X10^3/uL (1.3-2.9) 10/13/16 03:15 [place] # 0.5 x10^3/uL (0.3-0.8) 10/13/16 03:15 Eos # 0.2 x10^3/uL (0.0-0.2) 10/13/16 03:15 Baso # 0.0 X10^3/uL (0.0-0.1) 10/13/16 03:15 Absolute Nucleated RBC 0.2 /100WBC 10/13/16 03:15 Plt Clumps, EDTA Rare 10/08/16 03:25 Plt Morphology Comment Normal (NORMAL) 10/08/16 03:25 RBC Morphology Normal (NORMAL) 10/08/16 03:25 Sample Site Left radial 10/11/16 17:48 ABG pH 7.480 (7.35-7.45) H 10/11/16 17:48 ABG pCO2 44.0 mmHg (35.0-45.0) 10/11/16 17:48 ABG pO2 73.0 mmHg (80.0-100.0) L 10/11/16 17:48 ABG HCO3 32.8 mmol/L (22-26) H* 10/11/16 17:48 ABG O2 Saturation 96.0 % (90-100) 10/11/16 17:48 ABG Base Excess 8.3 mmol/L (-2.0-2.0) H 10/11/16 17:48 Von Test Pos 10/11/16 17:48 A-a Gradient 22.0 mmHg 10/11/16 17:48 FiO2 21.000 10/11/16 17:48 Blood Gas Comments Car[place] well aw 10/11/16 17:48 Sodium 146 mmol/L (136-145) H 10/13/16 03:15 Corrected Sodium 147 mmol/L (136-145) H 10/13/16 03:15 Potassium 3.7 mmol/L (3.5-5.1) 10/13/16 03:15 Chloride 110 mmol/L (98-107) H 10/13/16 03:15 Carbon Dioxide 28.7 mmol/L (21-32) 10/13/16 03:15 BUN 41 mg/dL (7-18) H 10/13/16 03:15 Creatinine 1.53 mg/dL (0.55-1.02) H 10/13/16 03:15 Est GFR (MDRD) Af Amer 41 (>60) L 10/13/16 03:15 Est GFR (MDRD) Non-Af 34 (>60) L 10/13/16 03:15 Glucose 126 mg/dL (65-99) H 10/13/16 03:15 Calcium 10.1 mg/dL (8.5-10.1) 10/13/16 03:15 Corrected Calcium 11.3 mg/dL (8.5-10.1) H 10/13/16 03:15 Magnesium 1.7 mg/dL (1.7-2.9) 10/13/16 03:15 Total Bilirubin 0.30 mg/dL (0.2-1.0) 10/13/16 03:15 AST 20 Units/L (15-37) 04/11/17 03:15 ALT 19 Units/L (12-78) 10/13/16 03:15 Alkaline Phosphatase 50 Units/L (46-116) 10/13/16 03:15 Creatine Kinase 47 Units/L (26-192) 10/08/16 00:35 CK-MB (CK-2) < 1.0 ng/mL (0-4.0) 10/08/16 00:35 CK/CKMB % Calc 2.1 % (<4) 10/08/16 00:35 Troponin I 0.02 ng/mL (0-1.5) 10/08/16 00:35 B-Natriuretic Peptide 597 pg/mL (0-79) H* 10/07/16 12:15 Total Protein 6.2 g/dL (6.4-8.2) L 10/13/16 03:15 Albumin 2.5 g/dL (3.4-5.0) L 10/13/16 03:15 Globulin 3.7 g/dL (2.5-4.5) 10/13/16 03:15 Albumin/Globulin Ratio 0.7 Ratio (1.1-2.1) L 10/13/16 03:15 Specimen Type Clean catch urine 10/07/16 12:09 Urine Color Yellow (YELLOW) 10/07/16 12:09 Urine Appearance Clear (CLEAR) 10/07/16 12:09 Urine pH 7.0 (5.0 - 8.0) 10/07/16 12:09 Ur Specific [place] 1.010 (1.000-1.030) 10/07/16 12:09 Urine Protein Negative (NEGATIVE) 10/07/16 12:09 Urine Glucose (UA) Negative (NEGATIVE) 10/07/16 12:09 Urine Ketones Negative (NEGATIVE) 10/07/16 12:09 Urine Occult Blood Negative (NEGATIVE) 10/07/16 12:09 Urine Nitrite Negative (NEGATIVE) 10/07/16 12:09 Urine Bilirubin Negative (NEGATIVE) 10/07/16 12:09 Urine Urobilinogen Normal (NORMAL) 10/07/16 12:09 Ur Leukocyte Esterase 2+ (NEGATIVE) 10/07/16 12:09 Urine RBC 0-2 /HPF (NEGATIVE) 10/07/16 12:09 Urine WBC 0-5 /HPF (NEGATIVE) 10/07/16 12:09 Ur Squamous Epith Cells Moderate /HPF (NEGATIVE) 10/07/16 12:09 Ur Renal Epithelial Cell Few /HPF (NEGATIVE) 10/07/16 12:09 Urine Bacteria Trace /HPF (NEGATIVE) 10/07/16 12:09 Hyaline Casts Rare /LPF (NEGATIVE) 10/07/16 12:09 Ur Culture Indicated? No/not indicated 10/07/16 12:09 - Plan (1) Chest pain Status: Acute Qualifiers: Chest pain type: precordial pain Ischemic chest pain type: I Qualified Code(s): R07.2 - Precordial pain Plan: continue cardiac monitoring, resume home meds. bp and lipid control. continue lasix, strict I & O's. repeat am labs and chest xray (2) CHF (congestive heart failure) Status: Acute Qualifiers: Congestive heart failure type: combined Congestive heart failure chronicity : acute on chronic Qualified Code(s): I50.43 - Acute on chronic combined systolic (congestive) and diastolic (congestive) heart failure (3) Diabetes mellitus, type II Status: Chronic Qualifiers: Diabetes mellitus complication status: D Diabetes mellitus complication detail: D Diabetic retinopathy severity: D Proliferative retinopathy type: P Diabetes mellitus macular edema: D Diabetes mellitus long term care administrator insulin use : D Laterality: L Chronic kidney disease stage: C (4) HTN (hypertension) Status: Chronic Qualifiers: Hypertension type: H (5) Bronchitis Status: Acute Plan: IMPROVED (6) Hilar mass Status: Acute Plan: RIGHT INFRAHILAR MASS, CT WITH CONTRAST (7) Conjunctiva disorder Status: Acute Plan: LEFT EYE, CULTURE D/C START GENT EYE DROPS
[2016-10-13] MEDS: ROCEPHIN VIAL 1 GM 1 GM in NS 50 ML IV + SPIKE MINIBAG* 50 ML IV SCH (09:09)
[2016-10-13] MEDS: SYNTHROID 88 mcg TAB PO SCH (09:09)
[2016-10-13] MEDS: ZAROXOYLN PO SCH (09:10)
[2016-10-13] MEDS: COREG TAB 6.25 MG PO SCH ×2 (09:10→22:36)
[2016-10-13] MEDS: ASPIRIN EC 81 MG PO SCH (09:10)
[2016-10-13] MEDS: PLAVIX PO SCH (09:10)
[2016-10-13] MEDS: ROCALTROL PO SCH (09:11)
[2016-10-13] MEDS: TAB-A-VITE PO SCH (09:11)
[2016-10-13] MEDS: K-DUR TAB 20 MEQ PO SCH ×2 (09:11→22:36)
[2016-10-13] MEDS: CHRONULAC PO SCH (09:14)
[2016-10-13] MEDS: DUONEB 0.5 MG/3 MG NEB SCH ×2 (09:56→20:59)
[2016-10-13 16:05] LABS: ALBUMIN 2.9 g/dL (3.4-5.0); CALCIUM 10.4 mg/dL (8.5-10.1); COR CA(FOR HYPOALB) 11.3 mg/dL (8.5-10.1); CREATININE 1.57 mg/dL (0.55-1.02)
[2016-10-13] MEDS: NS 1000 ML 1,000 ML IV SCH (16:46)
[2016-10-13] MEDS ORDERED: PERCOCET TAB 5/325 MG PO PRN (18:30)
--- NOTE | 2016-10-13 18:36 | PCM.PROG ---
Progress Note - Progress Note for Day of Date: 10/13/16 - Subjective Subjective: PT CO MILD SAUCEDA, LEFT EYE CRUSTING, SENSATIVE TO LIGHT. OBTAIN EYE CULTURE, STARTED ON GENT EYE DROPS, CONTINUE CO PAIN THIS AM, PERCOCET FOR PAIN CONTROL CT HEAD. PT HAD ABNORMAL CT SCAN, INFORMED PT'S FAMILY. CT CHEST WITH CONTRAST AND TOTAL BODY SCAN ORDERED FOR THIS AM - Past Medical Family Social History Past Med/Fam/Surg Hx: No changes since H&P Allergies: Allergies Codeine Allergy (Verified 10/07/16 11:40) Dextromethorphan [From Robitussin-DM] Allergy (Verified 10/12/16 11:25) Ethanol [From Robitussin] Allergy (Verified 10/12/16 11:25) Guaifenesin [From Robitussin] Allergy (Verified 10/12/16 11:25) - Review of Systems ROS: No change since H&P - Vital Signs and I&O's Vital Signs: Temperature 98 F Pulse Rate [Left Brachial] 60 Pulse Rate [Right Brachial] 71 Pulse Rate 76 Respiratory Rate 20 Blood Pressure [Right Arm] 130/56 Blood Pressure [Left Arm] 143/67 O2 Sat by Pulse Oximetry 95 Intake and Output: Intake & Output 10/11/16 10/12/16 10/13/16 10/14/16 11:59 11:59 11:59 11:59 Intake Total 1520 1040 1380 640 Output Total 400 Balance 1520 1040 1380 240 - Physical Exam Oriented: Normal Eyes: Discharge (thin, water d/c from left eye) Ear: Normal Nose: Normal Throat: Normal Respiratory: Diminished, Rhonchi Cardiovascular: Normal. negative: Edema : Normal Auscultation: Bowel Sounds: Normal Tenderness: Normal Musculoskeletal: Normal Psychiatric: Anxiety Affect: Anxious Speech Pattern: Clear, Appropriate - Laboratory and Diagnostics Result Diagrams: 10/13/16 03:15 10/13/16 15:35 Labs: 10/12/16 13:09 Eye - Left Gram Stain - Final 10/12/16 13:09 Eye - Left Wound Culture - Preliminary Laboratory WBC 5.6 X10^3/uL (3.6-10.0) 10/13/16 03:15 RBC 3.38 X10^6/uL (3.5-5.4) L 10/13/16 03:15 Hgb 10.5 g/dL (12.0-16.0) L 10/13/16 03:15 Hct 31.7 % (36.0-47.0) L 10/13/16 03:15 MCV 93.7 fL (80.0-100.0) 10/13/16 03:15 MCH 31.1 pg (27.0-34.0) 10/13/16 03:15 MCHC 33.2 g/dL (33.0-35.0) 10/13/16 03:15 RDW 13.3 % (11.6-16.5) 10/13/16 03:15 Plt Count 59 X10^3/uL (150.0-450.0) L 10/13/16 03:15 Plt Count Comment Adequate (ADEQUATE) 10/08/16 03:25 MPV 9.1 fL (7.4-11.0) 10/13/16 03:15 Neut % 53.8 % (42.0-75.0) 10/13/16 03:15 Lymph % 33.9 % (21.0-51.0) 10/13/16 03:15 [place] % 8.6 % (0.0-13.0) 10/13/16 03:15 Eos % 3.3 % (0.9-2.9) H 10/13/16 03:15 Baso % 0.4 % (0.2-1.0) 10/13/16 03:15 Neut # 3.0 x10^3/uL (2.2-4.8) 10/13/16 03:15 Lymph # 1.9 X10^3/uL (1.3-2.9) 10/13/16 03:15 [place] # 0.5 x10^3/uL (0.3-0.8) 10/13/16 03:15 Eos # 0.2 x10^3/uL (0.0-0.2) 10/13/16 03:15 Baso # 0.0 X10^3/uL (0.0-0.1) 10/13/16 03:15 Absolute Nucleated RBC 0.2 /100WBC 10/13/16 03:15 Plt Clumps, EDTA Rare 10/08/16 03:25 Plt Morphology Comment Normal (NORMAL) 10/08/16 03:25 RBC Morphology Normal (NORMAL) 10/08/16 03:25 Sample Site Left radial 10/11/16 17:48 ABG pH 7.480 (7.35-7.45) H 10/11/16 17:48 ABG pCO2 44.0 mmHg (35.0-45.0) 10/11/16 17:48 ABG pO2 73.0 mmHg (80.0-100.0) L 10/11/16 17:48 ABG HCO3 32.8 mmol/L (22-26) H* 10/11/16 17:48 ABG O2 Saturation 96.0 % (90-100) 10/11/16 17:48 ABG Base Excess 8.3 mmol/L (-2.0-2.0) H 10/11/16 17:48 Von Test Pos 10/11/16 17:48 A-a Gradient 22.0 mmHg 10/11/16 17:48 FiO2 21.000 10/11/16 17:48 Blood Gas Comments [place] well aw 10/11/16 17:48 Sodium 145 mmol/L (136-145) 10/13/16 15:35 Corrected Sodium 146 mmol/L (136-145) H 10/13/16 15:35 Potassium 3.5 mmol/L (3.5-5.1) 10/13/16 15:35 Chloride 108 mmol/L (98-107) H 10/13/16 15:35 Carbon Dioxide 30.0 mmol/L (21-32) 10/13/16 15:35 BUN 35 mg/dL (7-18) H 10/13/16 15:35 Creatinine 1.57 mg/dL (0.55-1.02) H 10/13/16 15:35 Est GFR (MDRD) Af Amer 40 (>60) L 10/13/16 15:35 Est GFR (MDRD) Non-Af 33 (>60) L 10/13/16 15:35 Glucose 151 mg/dL (65-99) H 10/13/16 15:35 Calcium 10.4 mg/dL (8.5-10.1) H 10/13/16 15:35 Corrected Calcium 11.3 mg/dL (8.5-10.1) H 10/13/16 15:35 Magnesium 1.7 mg/dL (1.7-2.9) 10/13/16 03:15 Total Bilirubin 0.30 mg/dL (0.2-1.0) 10/13/16 15:35 AST 20 Units/L (15-37) 10/13/16 15:35 ALT 23 Units/L (12-78) 10/13/16 15:35 Alkaline Phosphatase 56 Units/L (46-116) 10/13/16 15:35 Creatine Kinase 47 Units/L (26-192) 10/08/16 00:35 CK-MB (CK-2) < 1.0 ng/mL (0-4.0) 10/08/16 00:35 CK/CKMB % Calc 2.1 % (<4) 10/08/16 00:35 Troponin I 0.02 ng/mL (0-1.5) 10/08/16 00:35 B-Natriuretic Peptide 597 pg/mL (0-79) H* 10/07/16 12:15 Total Protein 7.0 g/dL (6.4-8.2) 10/13/16 15:35 Albumin 2.9 g/dL (3.4-5.0) L 10/13/16 15:35 Globulin 4.1 g/dL (2.5-4.5) 10/13/16 15:35 Albumin/Globulin Ratio 0.7 Ratio (1.1-2.1) L 10/13/16 15:35 Specimen Type Clean catch urine 10/07/16 12:09 Urine Color Yellow (YELLOW) 10/07/16 12:09 Urine Appearance Clear (CLEAR) 10/07/16 12:09 Urine pH 7.0 (5.0 - 8.0) 10/07/16 12:09 Ur Specific [place] 1.010 (1.000-1.030) 10/07/16 12:09 Urine Protein Negative (NEGATIVE) 10/07/16 12:09 Urine Glucose (UA) Negative (NEGATIVE) 10/07/16 12:09 Urine Ketones Negative (NEGATIVE) 10/07/16 12:09 Urine Occult Blood Negative (NEGATIVE) 10/07/16 12:09 Urine Nitrite Negative (NEGATIVE) 10/07/16 12:09 Urine Bilirubin Negative (NEGATIVE) 10/07/16 12:09 Urine Urobilinogen Normal (NORMAL) 10/07/16 12:09 Ur Leukocyte Esterase 2+ (NEGATIVE) 10/07/16 12:09 Urine RBC 0-2 /HPF (NEGATIVE) 10/07/16 12:09 Urine WBC 0-5 /HPF (NEGATIVE) 10/07/16 12:09 Ur Squamous Epith Cells Moderate /HPF (NEGATIVE) 10/07/16 12:09 Ur Renal Epithelial Cell Few /HPF (NEGATIVE) 10/07/16 12:09 Urine Bacteria Trace /HPF (NEGATIVE) 10/07/16 12:09 Hyaline Casts Rare /LPF (NEGATIVE) 10/07/16 12:09 Ur Culture Indicated? No/not indicated 10/07/16 12:09 - Plan (1) Chest pain Status: Acute Qualifiers: Chest pain type: precordial pain Ischemic chest pain type: I Qualified Code(s): R07.2 - Precordial pain Plan: continue cardiac monitoring, resume home meds. bp and lipid control. continue lasix, strict I & O's. repeat am labs (2) CHF (congestive heart failure) Status: Acute Qualifiers: Congestive heart failure type: combined Congestive heart failure chronicity : acute on chronic Qualified Code(s): I50.43 - Acute on chronic combined systolic (congestive) and diastolic (congestive) heart failure (3) Diabetes mellitus, type II Status: Chronic Qualifiers: Diabetes mellitus complication status: D Diabetes mellitus complication detail: D Diabetic retinopathy severity: D Proliferative retinopathy type: P Diabetes mellitus macular edema: D Diabetes mellitus exterminator helper insulin use : D Laterality: L Chronic kidney disease stage: C (4) HTN (hypertension) Status: Chronic Qualifiers: Hypertension type: H (5) Bronchitis Status: Acute Plan: IMPROVED (6) Hilar mass Status: Acute Plan: RIGHT INFRAHILAR MASS, CT WITH CONTRAST (7) Conjunctiva disorder Status: Acute Plan: LEFT EYE, CULTURE D/C START GENT EYE DROPS. PAIN CONTROL, CT FACIAL BONES , CONTINUE IV ATBX
--- NOTE | 2016-10-13 18:52 | RAD ---
HISTORY: Shortness of breath Study: PA and lateral chest Comparison: October 10 Findings: The trachea is midline. The cardiac silhouette is normal with intact pacemaker wire leads from the left subclavian vein.. There is slight elevation of the left hemidiaphragm posteriorly. There is no pleural effusion. There is increased AP diameter of the thorax.. The bony thorax is unremarkable. IMPRESSION: 1. COPD, no definite acute disease. Reported By:
--- NOTE | 2016-10-13 19:25 | CT ---
HISTORY: Left eye pain Study: Maxillofacial CT without contrast Comparison: None Technique: Axial non contrast images with coronal and sagittal reformats. Dose reduction procedures were used with MA/kv adjusted for body size. This examination is limited due to the lack of intraven ous contrast. Findings: No significant facial soft tissue swelling is identified. The globes are intact. The retro orbital s oft tissues are normal with the exception of possible mild enlargement of the lacrimal gland on the left. Inflammation is possible. Further opthalmologic evaluation is recommended. The sinuses are radha ar with the exception of minimal mucosal inflammatory changes in the left maxillary sinus. No defini te bony abnormality is identified. The middle ear spaces and mastoid air cells are clear. IMPRESSION: Limited examination for the reason noted above Mild enlargement of the left lateral lacrimal gland possibly indicating inflammation. Further evalua tion by ophthalmology is recommended. Minimal mucosal inflammatory change left maxillary sinus Reported By:
[2016-10-13] MEDS: PRAVACHOL PO SCH (22:36)
[2016-10-13] MEDS: TRAVATAN Z EACHEYE SCH (22:37)
[2016-10-14] MEDS: GENTAMICIN SULF (OPHTH) AFFEYE SCH ×3 (03:00→21:12)
[2016-10-14] MEDS: NS 1000 ML 1,000 ML IV SCH ×2 (06:04→22:10)
[2016-10-14 06:16] LABS: BASOPHILS % (AUTO) 0.9 % (0.2-1.0); EOSINOPHILS # (AUTO) 0.3 x10^3/uL (0.0-0.2); EOSINOPHILS % (AUTO) 4.9 % (0.9-2.9); HEMATOCRIT 29.9 % (36.0-47.0); HEMOGLOBIN 10.1 g/dL (12.0-16.0); LYMPHOCYTES # (AUTO) 1.8 X10^3/uL (1.3-2.9); LYMPHOCYTES % (AUTO) 32.2 % (21.0-51.0); MEAN CORPUSCULAR HEMOGLOBIN 31.7 pg (27.0-34.0); MEAN CORPUSCULAR HGB CONC 33.8 g/dL (33.0-35.0); MEAN CORPUSCULAR VOLUME 93.8 fL (80.0-100.0); MEAN PLATELET VOLUME 8.7 fL (7.4-11.0); MONOCYTES # (AUTO) 0.5 x10^3/uL (0.3-0.8); MONOCYTES % (AUTO) 8.7 % (0.0-13.0); NEUTROPHILS % (AUTO) 53.3 % (42.0-75.0); PLATELET COUNT 137 X10^3/uL (150.0-450.0); RED BLOOD COUNT 3.19 X10^6/uL (3.5-5.4); WHITE BLOOD COUNT 5.6 X10^3/uL (3.6-10.0)
[2016-10-14 06:21] LABS: ALBUMIN 2.4 g/dL (3.4-5.0); CALCIUM 9.7 mg/dL (8.5-10.1); CARBON DIOXIDE 29.6 mmol/L (21-32); CREATININE 1.49 mg/dL (0.55-1.02); TOTAL PROTEIN 5.9 g/dL (6.4-8.2)
[2016-10-14] MEDS: DUONEB 0.5 MG/3 MG NEB SCH ×2 (08:48→20:42)
[2016-10-14] MEDS: K-DUR TAB 20 MEQ PO SCH ×2 (09:00→21:10)
[2016-10-14] MEDS: SYNTHROID 88 mcg TAB PO SCH (09:41)
[2016-10-14] MEDS: COREG TAB 6.25 MG PO SCH ×2 (09:41→21:10)
[2016-10-14] MEDS: TAB-A-VITE PO SCH (09:42)
[2016-10-14] MEDS: ROCALTROL PO SCH (09:42)
[2016-10-14] MEDS: ASPIRIN EC 81 MG PO SCH (09:43)
[2016-10-14] MEDS: PLAVIX PO SCH (09:43)
[2016-10-14] MEDS: ROCEPHIN VIAL 1 GM 1 GM in NS 50 ML IV + SPIKE MINIBAG* 50 ML IV SCH (09:44)
[2016-10-14] MEDS: CHRONULAC PO SCH (09:44)
--- NOTE | 2016-10-14 18:40 | PCM.PROG ---
Progress Note - Progress Note for Day of Date: 10/14/16 - Subjective Subjective: patient is a 86-year-old white female who was admitted with shortness of breath and possible CHF exacerbation. After treatment for bronchitis-like symptoms CT of the chest revealed a left lung mass. Patient and family refused transfer to [facility] for evaluation of lung mass due to "patient's wishes" patient refused any additional treatment or evaluation of mass. Discussed plans for discharge including in-home aides and Meals on Wheels , case management orchestrating. - Past Medical Family Social History Past Med/Fam/Surg Hx: No changes since H&P Allergies: Allergies Codeine Allergy (Verified 10/07/16 11:40) Dextromethorphan [From Robitussin-DM] Allergy (Verified 10/12/16 11:25) Ethanol [From Robitussin] Allergy (Verified 10/12/16 11:25) Guaifenesin [From Robitussin] Allergy (Verified 10/12/16 11:25) - Review of Systems ROS: No change since H&P - Vital Signs and I&O's Vital Signs: Temperature 98.0 F Pulse Rate [Left Brachial] 62 Pulse Rate [Right Brachial] 59 Pulse Rate 62 Respiratory Rate 20 Blood Pressure [Right Arm] 123/58 Blood Pressure [Left Arm] 146/73 O2 Sat by Pulse Oximetry 97 Intake and Output: Intake & Output 10/12/16 10/13/16 10/14/16 10/15/16 11:59 11:59 11:59 11:59 Intake Total 1040 1380 760 580 Output Total 400 Balance 1040 1380 360 580 - Physical Exam Oriented: Normal Eyes: Discharge (thin, water d/c from left eye) Ear: Normal Nose: Normal Throat: Normal Respiratory: Diminished, Rhonchi Cardiovascular: Normal. negative: Edema : Normal Auscultation: Bowel Sounds: Normal Tenderness: Normal Musculoskeletal: Normal Psychiatric: Anxiety Affect: Anxious Speech Pattern: Clear, Appropriate - Laboratory and Diagnostics Result Diagrams: 10/14/16 05:50 10/14/16 05:50 Labs: 10/12/16 13:09 Eye - Left Gram Stain - Final 10/12/16 13:09 Eye - Left Wound Culture - Preliminary Laboratory WBC 5.6 X10^3/uL (3.6-10.0) 10/14/16 05:50 RBC 3.19 X10^6/uL (3.5-5.4) L 10/14/16 05:50 Hgb 10.1 g/dL (12.0-16.0) L 10/14/16 05:50 Hct 29.9 % (36.0-47.0) L 10/14/16 05:50 MCV 93.8 fL (80.0-100.0) 10/14/16 05:50 MCH 31.7 pg (27.0-34.0) 10/14/16 05:50 MCHC 33.8 g/dL (33.0-35.0) 10/14/16 05:50 RDW 13.0 % (11.6-16.5) 10/14/16 05:50 Plt Count 137 X10^3/uL (150.0-450.0) L 10/14/16 05:50 Plt Count Comment Adequate (ADEQUATE) 10/08/16 03:25 MPV 8.7 fL (7.4-11.0) 10/14/16 05:50 Neut % 53.3 % (42.0-75.0) 10/14/16 05:50 Lymph % 32.2 % (21.0-51.0) 10/14/16 05:50 [place] % 8.7 % (0.0-13.0) 10/14/16 05:50 Eos % 4.9 % (0.9-2.9) H 10/14/16 05:50 Baso % 0.9 % (0.2-1.0) 10/14/16 05:50 Neut # 3.0 x10^3/uL (2.2-4.8) 10/14/16 05:50 Lymph # 1.8 X10^3/uL (1.3-2.9) 10/14/16 05:50 [place] # 0.5 x10^3/uL (0.3-0.8) 10/14/16 05:50 Eos # 0.3 x10^3/uL (0.0-0.2) H 10/14/16 05:50 Baso # 0.0 X10^3/uL (0.0-0.1) 10/14/16 05:50 Absolute Nucleated RBC 0.1 /100WBC 10/14/16 05:50 Plt Clumps, EDTA Rare 10/08/16 03:25 Plt Morphology Comment Normal (NORMAL) 10/08/16 03:25 RBC Morphology Normal (NORMAL) 10/08/16 03:25 Sample Site Left radial 10/11/16 17:48 ABG pH 7.480 (7.35-7.45) H 10/11/16 17:48 ABG pCO2 44.0 mmHg (35.0-45.0) 10/11/16 17:48 ABG pO2 73.0 mmHg (80.0-100.0) L 10/11/16 17:48 ABG HCO3 32.8 mmol/L (22-26) H* 10/11/16 17:48 ABG O2 Saturation 96.0 % (90-100) 10/11/16 17:48 ABG Base Excess 8.3 mmol/L (-2.0-2.0) H 10/11/16 17:48 Von Test Pos 10/11/16 17:48 A-a Gradient 22.0 mmHg 10/11/16 17:48 FiO2 21.000 10/11/16 17:48 Blood Gas Comments [place] well aw 10/11/16 17:48 Sodium 146 mmol/L (136-145) H 10/14/16 05:50 Corrected Sodium 147 mmol/L (136-145) H 10/14/16 05:50 Potassium 3.4 mmol/L (3.5-5.1) L 10/14/16 05:50 Chloride 110 mmol/L (98-107) H 10/14/16 05:50 Carbon Dioxide 29.6 mmol/L (21-32) 10/14/16 05:50 BUN 30 mg/dL (7-18) H 10/14/16 05:50 Creatinine 1.49 mg/dL (0.55-1.02) H 10/14/16 05:50 Est GFR (MDRD) Af Amer 43 (>60) L 10/14/16 05:50 Est GFR (MDRD) Non-Af 35 (>60) L 10/14/16 05:50 Glucose 124 mg/dL (65-99) H 10/14/16 05:50 Calcium 9.7 mg/dL (8.5-10.1) 10/14/16 05:50 Corrected Calcium 11.0 mg/dL (8.5-10.1) H 10/14/16 05:50 Magnesium 1.7 mg/dL (1.7-2.9) 10/13/16 03:15 Total Bilirubin 0.40 mg/dL (0.2-1.0) 10/14/16 05:50 AST 14 Units/L (15-37) L 10/14/16 05:50 ALT 19 Units/L (12-78) 10/14/16 05:50 Alkaline Phosphatase 46 Units/L (46-116) 10/14/16 05:50 Creatine Kinase 47 Units/L (26-192) 10/08/16 00:35 CK-MB (CK-2) < 1.0 ng/mL (0-4.0) 10/08/16 00:35 CK/CKMB % Calc 2.1 % (<4) 10/08/16 00:35 Troponin I 0.02 ng/mL (0-1.5) 10/08/16 00:35 B-Natriuretic Peptide 597 pg/mL (0-79) H* 10/07/16 12:15 Total Protein 5.9 g/dL (6.4-8.2) L 10/14/16 05:50 Albumin 2.4 g/dL (3.4-5.0) L 10/14/16 05:50 Globulin 3.5 g/dL (2.5-4.5) 10/14/16 05:50 Albumin/Globulin Ratio 0.7 Ratio (1.1-2.1) L 10/14/16 05:50 Specimen Type Clean catch urine 10/07/16 12:09 Urine Color Yellow (YELLOW) 10/07/16 12:09 Urine Appearance Clear (CLEAR) 10/07/16 12:09 Urine pH 7.0 (5.0 - 8.0) 10/07/16 12:09 Ur Specific [place] 1.010 (1.000-1.030) 10/07/16 12:09 Urine Protein Negative (NEGATIVE) 10/07/16 12:09 Urine Glucose (UA) Negative (NEGATIVE) 10/07/16 12:09 Urine Ketones Negative (NEGATIVE) 10/07/16 12:09 Urine Occult Blood Negative (NEGATIVE) 10/07/16 12:09 Urine Nitrite Negative (NEGATIVE) 10/07/16 12:09 Urine Bilirubin Negative (NEGATIVE) 10/07/16 12:09 Urine Urobilinogen Normal (NORMAL) 10/07/16 12:09 Ur Leukocyte Esterase 2+ (NEGATIVE) 10/07/16 12:09 Urine RBC 0-2 /HPF (NEGATIVE) 10/07/16 12:09 Urine WBC 0-5 /HPF (NEGATIVE) 10/07/16 12:09 Ur Squamous Epith Cells Moderate /HPF (NEGATIVE) 10/07/16 12:09 Ur Renal Epithelial Cell Few /HPF (NEGATIVE) 10/07/16 12:09 Urine Bacteria Trace /HPF (NEGATIVE) 10/07/16 12:09 Hyaline Casts Rare /LPF (NEGATIVE) 10/07/16 12:09 Ur Culture Indicated? No/not indicated 10/07/16 12:09 - Plan (1) Chest pain Status: Acute Qualifiers: Chest pain type: precordial pain Ischemic chest pain type: I Qualified Code(s): R07.2 - Precordial pain Plan: continue cardiac monitoring, resume home meds. bp and lipid control. continue lasix, strict I & O's. repeat am labs (2) CHF (congestive heart failure) Status: Acute Qualifiers: Congestive heart failure type: combined Congestive heart failure chronicity : acute on chronic Qualified Code(s): I50.43 - Acute on chronic combined systolic (congestive) and diastolic (congestive) heart failure (3) Diabetes mellitus, type II Status: Chronic Qualifiers: Diabetes mellitus complication status: D Diabetes mellitus complication detail: D Diabetic retinopathy severity: D Proliferative retinopathy type: P Diabetes mellitus macular edema: D Diabetes mellitus long term care phlebotomist insulin use : D Laterality: L Chronic kidney disease stage: C (4) HTN (hypertension) Status: Chronic Qualifiers: Hypertension type: H (5) Bronchitis Status: Acute Plan: IMPROVED (6) Hilar mass Status: Acute Plan: RIGHT INFRAHILAR MASS, CT WITH CONTRAST. patient refused any additional evaluation and treatment for transfer per Dr. Neves's recommendation. Plan to honor patient's wishes. Patient is currently living with her disabled sister and case management is coordinating the in-home care including meals on wheels prior to discharge. (7) Conjunctiva disorder Status: Acute Plan: LEFT EYE, CULTURE, continue GENT EYE DROPS. PAIN CONTROL, CT FACIAL BONES revealed lacrimal gland enlargement, CONTINUE IV ATBX
[2016-10-14] MEDS: PRAVACHOL PO SCH (21:10)
[2016-10-14] MEDS: TRAVATAN Z EACHEYE SCH (21:11)
[2016-10-15] MEDS: GENTAMICIN SULF (OPHTH) AFFEYE SCH ×3 (03:00→16:00)
[2016-10-15 05:57] LABS: ALBUMIN 2.4 g/dL (3.4-5.0); CALCIUM 9.7 mg/dL (8.5-10.1); CREATININE 1.48 mg/dL (0.55-1.02); TOTAL PROTEIN 5.8 g/dL (6.4-8.2)
[2016-10-15 06:18] LABS: BASOPHILS % (AUTO) 0.7 % (0.2-1.0); EOSINOPHILS # (AUTO) 0.2 x10^3/uL (0.0-0.2); EOSINOPHILS % (AUTO) 3.7 % (0.9-2.9); HEMATOCRIT 28.6 % (36.0-47.0); HEMOGLOBIN 9.6 g/dL (12.0-16.0); LYMPHOCYTES # (AUTO) 1.9 X10^3/uL (1.3-2.9); LYMPHOCYTES % (AUTO) 31.2 % (21.0-51.0); MEAN CORPUSCULAR HEMOGLOBIN 31.9 pg (27.0-34.0); MEAN CORPUSCULAR HGB CONC 33.7 g/dL (33.0-35.0); MEAN CORPUSCULAR VOLUME 94.6 fL (80.0-100.0); MEAN PLATELET VOLUME 9.1 fL (7.4-11.0); MONOCYTES # (AUTO) 0.5 x10^3/uL (0.3-0.8); MONOCYTES % (AUTO) 7.5 % (0.0-13.0); NEUTROPHILS # (AUTO) 3.5 x10^3/uL (2.2-4.8); NEUTROPHILS % (AUTO) 56.9 % (42.0-75.0); PLATELET COUNT 131 X10^3/uL (150.0-450.0); RED BLOOD COUNT 3.02 X10^6/uL (3.5-5.4); WHITE BLOOD COUNT 6.1 X10^3/uL (3.6-10.0)
[2016-10-15] MEDS: DUONEB 0.5 MG/3 MG NEB SCH (08:34)
[2016-10-15] MEDS: ROCEPHIN VIAL 1 GM 1 GM in NS 50 ML IV + SPIKE MINIBAG* 50 ML IV SCH (09:37)
[2016-10-15] MEDS: ASPIRIN EC 81 MG PO SCH (09:38)
[2016-10-15] MEDS: ROCALTROL PO SCH (09:38)
[2016-10-15] MEDS: COREG TAB 6.25 MG PO SCH (09:38)
[2016-10-15] MEDS: CHRONULAC PO SCH (09:38)
[2016-10-15] MEDS: K-DUR TAB 20 MEQ PO SCH (09:38)
[2016-10-15] MEDS: PLAVIX PO SCH (09:38)
[2016-10-15] MEDS: TAB-A-VITE PO SCH (09:39)
[2016-10-15] MEDS: SYNTHROID 88 mcg TAB PO SCH (09:39)
[2016-10-15] MEDS: ZAROXOYLN PO SCH (09:42)
--- NOTE | 2016-10-15 15:08 | NM ---
HISTORY: Chest mass, possible metastasis Study: Nuclear medicine whole-body bone scan Comparison: Chest CT 10/11/2016 Technique: Whole body bone scintigraphy was performed in the anterior and posterior projection after the intravenous administration of 25.5 mCi of technetium labeled and CT injected in the left arm. Findings: Physiologic distribution of radiotracer is observed throughout the appendicular and axial skeleton. Normal soft tissue uptake and renal excretion is noted. Mild degenerative uptake is seen in the maggie ateral knees and sternoclavicular joints. IMPRESSION: No abnormal tracer uptake to suggest metastatic disease. Reported By:
[2016-10-15 15:59] VITALS: BP 162/76
== END 2016-10-15 15:55 | disposition home health service (06) | DRG 313 ==
LOC: ER 11:32 → MED/SURG 13:34 → EDSEX 13:34 → OBSVTOIN 10-09 13:00
PROVIDERS: ADMIT Internal Medicine; ATTEND Internal Medicine
DX: R07.2 Precordial pain (principal); R22.2 Localized swelling, mass and lump, trunk; I50.43 Acute on chronic combined systolic (congestive) and diastolic (congestive) heart failure; R79.89 Other specified abnormal findings of blood chemistry; T50.1X5A Adverse effect of loop [high-ceiling] diuretics, initial encounter; Y92.239 Unspecified place in hospital as the place of occurrence of the external cause; E11.22 Type 2 diabetes mellitus with diabetic chronic kidney disease; J20.9 Acute bronchitis, unspecified; J44.9 Chronic obstructive pulmonary disease, unspecified; J45.998 Other asthma; I12.9 Hypertensive chronic kidney disease with stage 1 through stage 4 chronic kidney disease, or unspecified chronic kidney disease; E11.319 Type 2 diabetes mellitus with unspecified diabetic retinopathy without macular edema; N18.9 Chronic kidney disease, unspecified; R93.8 Abnormal findings on diagnostic imaging of other specified body structures; H57.12 Ocular pain, left eye; H11.89 Other specified disorders of conjunctiva; I25.10 Atherosclerotic heart disease of native coronary artery without angina pectoris
CPT/HCPCS: 36415; 36600; 70486; 71010; 71020; 71250; 78306; 80048; 80053; 81001; 82550; 82553; 82803; 83735; 83880; 84484; 85025; 87070; 87075; 87205; 93005; 93010; 94640; 94760; 96365; 97535; 99284; A4216; A4222; G8978; G8979; G0378; J0696; J1644; J1940; J2405; J2920; J7620

== ENCOUNTER 2016-11-29 11:42 | Inpatient (IN) | payer OTHER ==
[2016-11-29 12:02] VITALS: BMI 24.6
--- NOTE | 2016-11-29 12:02 | DR.DIZZY ---
HPI - Time seen Time seen: 12:02 - PCP Primary Care Physician: Dominick OSBORN - HPI Comment HPI Comment: INCREASING SOB, ABDOMINAL PAIN AND GENERALIZE WEAKNESS. WORSE TODAY. NO FEVER. ABDOMINAL PAIN ALSO WORSE TODAY. - Complaint Chief Complaint Doctor Comments: ABDOMINAL PAIN, N/V AND GENERALIZE WEAKNESS TIMES 2 DAYS. SOB TODAY. Chief Complaint:: PT. C/O GENERALIZED WEAKNESS, SHORTNESS OF BREATH, AND ABDOMINAL PAIN. PT. LIVES WITH HER SISTER WHO IS WHEELCHAIR DEPENDENT AND FELL IN THE HOME ABOUT 2 DAYS AGO. - Nurses Notes Reviewed Nurses Notes Review: Yes - Source History Provided: Patient, EMS - Mode of Arrival Mode of Arrival: EMS - Timing Onset of Chief Complaint: 11/27/16 Came on: Suddenly - Duration Duration: Constant Duration: Days - Location of Weakness Weakness Location: Generalized - Context Onset: At rest Does pt take pot. toxic medication?: No History of: None Stroke Symptoms: None - Severity Severity: Normal activity level - Modifying factors Worsens: Nothing - Associated signs and symptoms Associated Signs and Symptoms: Weak, Nausea, Vomiting. denies: Faintness, Near Syncope, Fever, Headache, Chest Pain, GI Bleed PMH - PMH Past Medical History: Yes Past Medical History: CHF, Coronary Artery Disease, Diabetes, Hypertension Past Surgical History: Yes Surgical History: Angioplasty/Stents, Hysterectomy, Other - Family History History of Family Medical Conditions: Yes Family Medical History: Diabetes Mellitus, [place], Coronary Artery Disease - Social History Does patient currently use any type of tobacco product: No Have you used tobacco products in the last 12 months: No Type of Tobacco Use: None Does any household member use tobacco: No Alcohol Use: None Do you use any recreational Drugs:: No Lives With: Family Lives Where: Home - infectious screening In the last 2 months have you had wt loss of >10#?: NO Have you had fever, night sweats or hemotysis?: No Have you traveled outside the country in the last 6 months?: No Isolation: Standard ROS - Review of Systems Constitutional: Weakness, Fatigue, Loss of Appetite. negative: Chills, Diaphoresis, Fever Eyes: No Symptoms Reported. negative: Eye Pain, Discharge ENTM: No Symptoms Reported. negative: Ear Pain, Nose Discharge, Nose Congestion , Throat Pain Respiratoy: Non-Productive Cough, Short of Breath. negative: Productive Cough, Wheezing, Hemoptysis Cardiovascular: No Symptoms Reported. negative: Chest Pain, Edema Gastrointestinal/Abdominal: Abdominal Pain, Nausea, Vomiting. negative: Diarrhea Genitourinary: No Symptoms Reported. negative: Dysuria, Frequency, Hematuria Neurological: Headache, Weakness, Dizziness Musculoskeletal: Muscle Pain Integumentary: Dryness Hematologic/Lymphatic: No Symptoms Reported Endocrine: No Symptoms Reported All Other Systems: Reviewed and Negative PE - Vital Signs Vitals: Temperature 98.2 F Pulse Rate [Right Brachial] 58 Pulse Rate 75 Respiratory Rate 17 Blood Pressure [Right Arm] 109/64 Blood Pressure [Left Arm] 170/77 Blood Pressure 91/54 O2 Sat by Pulse Oximetry 100 - General Limitations: No Limitations General Appearance: Alert - Head Head Exam: Normal Inspection - Eyes Eye exam: Normal Appearance Pupils: Regular, Round: Bilateral, Reactive: Bilateral Sclera/Conjunctival: Normal Inspection: Bilateral - ENT ENT Exam: Normal External Ear Exam - Neck Neck Exam: Trachea Midline. negative: Tenderness, Meningismus, Lymphadenopathy - Chest Chest Inspection: Symmetric Chest Wall Rise - Respiratory Respiratory Exam: Normal Lung Sounds Bilat Respiratory Exam: Bilateral Rhonchi, Lower Rhonchi - Cardiovascular Cardiovascular Exam: Regular Rate, Normal Rhythm, Normal Heart Sounds - Abdominal Exam Abdominal Exam: Normal Bowel Sounds, Soft, Tenderness Abdominal Tenderness: Diffuse, Moderate - Rectal Rectal Exam: Deferred - Extremeties Extremities Exam: Normal Inspection - Back Back Exam: Normal Inspection - Neurologic Neurological Exam: Alert, Oriented X3 Speech: Fluid Speech Cranial Nerve Exam: EOM Function (II, III, IV, ): Normal, Facial Sensation (V) : Normal, Gag reflex (XI): Normal, Tongue Deviation: Normal Upper Motor Neuron Exam: Babinski Sign: Normal DTR: achilles tendon (L): 4+, achilles tendon (R): 4+, brachioradialis (L): 4+, brachioradialis (R): 4+, Patellar (L): 4+, patellar (R): 4+ - Skin Skin Exam: Dry MDM - Additional Information Additional Information Obtained From: Family - Differential Diagnosis Differential Diagnosis: Dehydration (ABDOMINAL PAIN, BOWEL OBSTRUCTION, DIVERTICULITIS, UTI), Electrolyte disorder, Myocardial Infarction Course - Treatment Treatment: SEE ORDERS. - Consultation Consultation Comments: DISCUSS PATIENT WITH DR. ABEL. - Education/Counseling Education/Counseling: Patient, Family, Education Educated On: Diagnosis ROR - Labs Reviewed Laboratory Results Reviewed?: Yes Result Diagrams: 12/02/16 06:33 12/02/16 06:33 Laboratory: WBC 8.3 X10^3/uL (3.6-10.0) 12/02/16 06:33 RBC 3.44 X10^6/uL (3.5-5.4) L 12/02/16 06:33 Hgb 10.9 g/dL (12.0-16.0) L 12/02/16 06:33 Hct 33.2 % (36.0-47.0) L 12/02/16 06:33 MCV 96.5 fL (80.0-100.0) 12/02/16 06:33 MCH 31.5 pg (27.0-34.0) 12/02/16 06:33 MCHC 32.7 g/dL (33.0-35.0) L 12/02/16 06:33 RDW 13.9 % (11.6-16.5) 12/02/16 06:33 Plt Count 202 X10^3/uL (150.0-450.0) 12/02/16 06:33 MPV 9.4 fL (7.4-11.0) 12/02/16 06:33 Neut % 77.0 % (42.0-75.0) H 12/02/16 06:33 Lymph % 11.8 % (21.0-51.0) L 12/02/16 06:33 [place] % 8.9 % (0.0-13.0) 12/02/16 06:33 Eos % 1.7 % (0.9-2.9) 12/02/16 06:33 Baso % 0.6 % (0.2-1.0) 12/02/16 06:33 Neut # 6.4 x10^3/uL (2.2-4.8) H 12/02/16 06:33 Lymph # 1.0 X10^3/uL (1.3-2.9) L 12/02/16 06:33 [place] # 0.7 x10^3/uL (0.3-0.8) 12/02/16 06:33 Eos # 0.1 x10^3/uL (0.0-0.2) 12/02/16 06:33 Baso # 0.1 X10^3/uL (0.0-0.1) 12/02/16 06:33 Absolute Nucleated RBC 0.0 /100WBC 12/02/16 06:33 Sodium 145 mmol/L (136-145) 12/02/16 06:33 Corrected Sodium 146 mmol/L (136-145) H 12/02/16 06:33 Potassium 3.7 mmol/L (3.5-5.1) 12/02/16 06:33 Chloride 106 mmol/L (98-107) 12/02/16 06:33 Carbon Dioxide 34.0 mmol/L (21-32) H 12/02/16 06:33 BUN 53 mg/dL (7-18) H 12/02/16 06:33 Creatinine 1.97 mg/dL (0.55-1.02) H 12/02/16 06:33 Est GFR (MDRD) Af Amer 31 (>60) L 12/02/16 06:33 Est GFR (MDRD) Non-Af 25 (>60) L 12/02/16 06:33 Glucose 139 mg/dL (65-99) H 12/02/16 06:33 Calcium 10.4 mg/dL (8.5-10.1) H 12/02/16 06:33 Corrected Calcium 11.8 mg/dL (8.5-10.1) H 12/02/16 06:33 Magnesium 2.1 mg/dL (1.7-2.9) 12/02/16 06:33 Total Bilirubin 0.40 mg/dL (0.2-1.0) 12/02/16 06:33 AST 19 Units/L (15-37) 12/02/16 06:33 ALT 15 Units/L (12-78) 12/02/16 06:33 Alkaline Phosphatase 52 Units/L (46-116) 12/02/16 06:33 Creatine Kinase 69 Units/L (26-192) 11/29/16 12:15 CK-MB (CK-2) < 1.0 ng/mL (0-4.0) 11/29/16 12:15 CK/CKMB % Calc 1.5 % (<4) 11/29/16 12:15 Troponin I 0.04 ng/mL (0-1.5) 11/29/16 12:15 Total Protein 6.7 g/dL (6.4-8.2) 12/02/16 06:33 Albumin 2.2 g/dL (3.4-5.0) L 12/02/16 06:33 Globulin 4.5 g/dL (2.5-4.5) 12/02/16 06:33 Albumin/Globulin Ratio 0.5 Ratio (1.1-2.1) L 12/02/16 06:33 Specimen Type Random urine 11/29/16 15:36 Urine Color Yellow (YELLOW) 11/29/16 15:36 Urine Appearance Clear (CLEAR) 11/29/16 15:36 Urine pH 6.5 (5.0 - 8.0) 11/29/16 15:36 Ur Specific [place] 1.005 (1.000-1.030) 11/29/16 15:36 Urine Protein 1+ (NEGATIVE) 11/29/16 15:36 Urine Glucose (UA) Negative (NEGATIVE) 11/29/16 15:36 Urine Ketones Negative (NEGATIVE) 11/29/16 15:36 Urine Occult Blood 1+ (NEGATIVE) 11/29/16 15:36 Urine Nitrite Negative (NEGATIVE) 11/29/16 15:36 Urine Bilirubin Negative (NEGATIVE) 11/29/16 15:36 Urine Urobilinogen Normal (NORMAL) 11/29/16 15:36 Ur Leukocyte Esterase Negative (NEGATIVE) 11/29/16 15:36 Urine RBC 0-3 /HPF (NEGATIVE) 11/29/16 15:36 Urine WBC 0-1 /HPF (NEGATIVE) 11/29/16 15:36 Ur Squamous Epith Cells Few /HPF (NEGATIVE) 11/29/16 15:36 Urine Bacteria Trace /HPF (NEGATIVE) 11/29/16 15:36 Ur Culture Indicated? Yes/culture set up 11/29/16 15:36 Urinalysis Comment Dip only ordered 11/29/16 12:42 Stool Description 2g,darkbrown,soft 12/01/16 15:56 Stl Occult Blood (IFOB) Positive (NEGATIVE) A 12/01/16 15:56 Stool for White Cells Rare (None) 12/01/16 15:56 Stl C. diff Tox B Gene Negative (NEGATIVE) 12/01/16 15:56 Stl C. diff [id number] Negative (NEGATIVE) 12/01/16 15:56 Cryptosporid parvum Ag Negative (NEGATIVE) 12/01/16 15:56 E. histolytica Antigen Negative (NEGATIVE) 12/01/16 15:56 Giardia lamblia Ag Negative (NEGATIVE) 12/01/16 15:56 - XRAY XRAY Interpreted by: Radiologist XRAY Findings: REPORT DISCUSS WITH PATIENT AND FAMILY. - EKG Rhythm: NSR (EKG NOTED.) - Diagnosis Discharge Problem: Acute diverticulitis Abdominal pain Qualifiers: Abdominal location: generalized Qualified Code(s): R10.84 - Generalized abdominal pain - Discharge Plan Disposition: ADMITTED INPATIENT Condition: Stable - Follow ups/Referrals - Instructions
[2016-11-29 12:37] LABS: BASOPHILS % (AUTO) 0.3 % (0.2-1.0); HEMATOCRIT 32.4 % (36.0-47.0); HEMOGLOBIN 10.9 g/dL (12.0-16.0); LYMPHOCYTES # (AUTO) 0.8 X10^3/uL (1.3-2.9); LYMPHOCYTES % (AUTO) 6.6 % (21.0-51.0); MEAN CORPUSCULAR HEMOGLOBIN 31.6 pg (27.0-34.0); MEAN CORPUSCULAR HGB CONC 33.6 g/dL (33.0-35.0); MEAN CORPUSCULAR VOLUME 94.3 fL (80.0-100.0); MEAN PLATELET VOLUME 9.6 fL (7.4-11.0); MONOCYTES # (AUTO) 0.8 x10^3/uL (0.3-0.8); MONOCYTES % (AUTO) 6.1 % (0.0-13.0); PLATELET COUNT 175 X10^3/uL (150.0-450.0); RED BLOOD COUNT 3.44 X10^6/uL (3.5-5.4); RED CELL DISTRIBUTION WIDTH 13.2 % (11.6-16.5); WHITE BLOOD COUNT 12.6 X10^3/uL (3.6-10.0)
[2016-11-29 12:50] LABS: BLOOD UREA NITROGEN 85 mg/dL (7-18); CALCIUM 10.8 mg/dL (8.5-10.1); CARBON DIOXIDE 39.7 mmol/L (21-32); CHLORIDE 87 mmol/L (98-107); COR NA(FOR HYPERGLY) 133 mmol/L (136-145); CREATININE 3.66 mg/dL (0.55-1.02); GLUCOSE 191 mg/dL (65-99); SODIUM 131 mmol/L (136-145); TROPONIN I 0.04 ng/mL (0-1.5); eGFR BLACK RACES 15 (>60); eGFR NON BLACK RACES 12 (>60)
[2016-11-29 12:54] LABS: ALANINE AMINOTRANSFERASE 17 Units/L (12-78); ALBUMIN 2.4 g/dL (3.4-5.0); ALKALINE PHOSPHATASE 57 Units/L (46-116); ASPARTATE AMINO TRANSFERASE 21 Units/L (15-37); CKMB % 1.5 % (<4); COR CA(FOR HYPOALB) 12.1 mg/dL (8.5-10.1); CREATINE KINASE 69 Units/L (26-192); CREATINE KINASE MB < 1.0 ng/mL (0-4.0); TOTAL PROTEIN 7.1 g/dL (6.4-8.2)
[2016-11-29 13:01] LABS: BILIRUBIN,URINE NEGATIVE (NEGATIVE); BLOOD/HEMOGLOBIN,URINE 2+ (NEGATIVE); GLUCOSE, URINE NEGATIVE (NEGATIVE); KETONES,URINE NEGATIVE (NEGATIVE); LEUKOCYTE ESTERASE ,URINE 2+ (NEGATIVE); NITRITES,URINE NEGATIVE (NEGATIVE); PROTEIN,URINE 2+ (NEGATIVE); UROBILINOGEN,URINE NORMAL (NORMAL)
[2016-11-29 13:06] LABS: APPEARANCE,URINE SLIGHTLY HAZY (CLEAR); COLOR,URINE YELLOW (YELLOW)
--- NOTE | 2016-11-29 13:20 | CT ---
HISTORY: Abdominal pain Study: CT abdomen and pelvis without contrast Comparison: Abdominal pain Technique: Multiple axial images of the abdomen and pelvis were obtained without IV contrast. Dose reduction techniques including Automated Exposure Control (AEC) and adjustment of mA and kV were utilized. Findings: Please note evaluation is limited without use of IV contrast. There is a moderate-sized hiatal hernia. Cardiomegaly is noted. The visualized lung bases are clear. . The liver, spleen, pancreas, kidneys, and adrenal glands are unremarkable in their unenhanced CT appearance. Layering dense material is seen within the gallbladder lumen that may represent sludge o r very small stones. Probable left renal cysts. No renal calculi or obstructive uropathy. No free intraperitoneal air. There is pericolonic inflammatory fat stranding and bowel wall thickeni ng involving the sigmoid colon with numerous inflamed diverticula most compatible with acute diverti culitis. No evidence of abscess or perforation on this noncontrast exam. No free fluid identified in the pelvis. There are degenerative changes of the thoracolumbar spine and pelvis. Moderate atherosclerotic disea se is seen. No pathologically enlarged lymph nodes are identified. Urinary bladder is not well diste nded but appears thick walled. IMPRESSION: 1. Findings compatible with acute sigmoid diverticulitis. No evidence of complication. 2. Moderate-sized hiatal hernia. 3. Sludge versus small stones within the gallbladder. 4. Urinary bladder wall appears thickened although the bladder is also not well distended. Correlati on with urinalysis recommended. Reported By:
--- NOTE | 2016-11-29 13:22 | CT ---
HISTORY: Altered mental status Study: CT brain without contrast Comparison: 10/13/2016 Technique: Multiple axial images of the brain were obtained from the skull base to the vertex without administr ation of IV contrast. Dose reduction techniques including Automated Exposure Control (AEC) and adju stment of mA and kV were utilized. Findings: Chronic cerebral atrophy and nonspecific white matter hypoattenuation likely representing advanced m icrovascular ischemic changes is again noted. No evidence of acute hemorrhage, midline shift, mass effect or abnormal extra-axial fluid collection. The ventricular system is symmetric and nondilated . The soft tissues and osseous structures are unremarkable. The visualized paranasal sinuses are cl ear. IMPRESSION: 1. Stable head without acute intracranial abnormality. Reported By:
--- NOTE | 2016-11-29 13:38 | RAD ---
HISTORY: Altered mental status Study: Single view chest Comparison: 10/13/2016 Findings: Dual-chamber pacemaker is in place. The lungs are clear without consolidation, effusion or pneumotho rax. Stable cardiomegaly. The soft tissues are unremarkable. IMPRESSION: 1. Stable cardiomegaly without acute findings. Reported By:
[2016-11-29] MEDS ORDERED: NS 1000 ML 1,000 ML with POTASSIUM CHLORIDE INJ 10 MEQ VIAL 10 MEQ IV SCH ×2 (14:00)
[2016-11-29] MEDS: NS + KCL 20 MEQ/L 1,000 ML IV SCH (14:42)
[2016-11-29] MEDS: FLAGYL IV PREMIX 500 MG BAG 500 MG/100 ML BAG IV SCH ×2 (14:42→20:55)
[2016-11-29] MEDS ORDERED: ZOFRAN INJ 4 MG VIAL IVP PRN (15:03)
[2016-11-29] MEDS ORDERED: PEPCID 20 MG IV PREMIX* 20 MG/50 ML BAG IV SCH (16:00)
[2016-11-29 16:06] LABS: BILIRUBIN,URINE NEGATIVE (NEGATIVE); BLOOD/HEMOGLOBIN,URINE 1+ (NEGATIVE); GLUCOSE, URINE NEGATIVE (NEGATIVE); KETONES,URINE NEGATIVE (NEGATIVE); LEUKOCYTE ESTERASE ,URINE NEGATIVE (NEGATIVE); NITRITES,URINE NEGATIVE (NEGATIVE); PH,URINE 6.5 (5.0 - 8.0); PROTEIN,URINE 1+ (NEGATIVE); UROBILINOGEN,URINE NORMAL (NORMAL)
[2016-11-29 16:16] LABS: APPEARANCE,URINE CLEAR (CLEAR); BACTERIA,URINE TRACE /HPF (NEGATIVE); COLOR,URINE YELLOW (YELLOW); RBC,URINE 0-3 /HPF (NEGATIVE); SQUAMOUS EPITHELIAL CELL,UR FEW /HPF (NEGATIVE)
[2016-11-29] MEDS: CIPRO IV 200 MG PREMIX* 200 MG/100 ML BAG IV SCH (20:55)
[2016-11-30] MEDS: FLAGYL IV PREMIX 500 MG BAG 500 MG/100 ML BAG IV SCH ×5 (04:27→21:46)
[2016-11-30] MEDS: NS + KCL 20 MEQ/L 1,000 ML IV SCH (06:25)
[2016-11-30 06:32] LABS: BASOPHILS % (AUTO) 0.3 % (0.2-1.0); EOSINOPHILS % (AUTO) 0.1 % (0.9-2.9); HEMATOCRIT 31.5 % (36.0-47.0); HEMOGLOBIN 10.6 g/dL (12.0-16.0); LYMPHOCYTES # (AUTO) 0.7 X10^3/uL (1.3-2.9); LYMPHOCYTES % (AUTO) 5.3 % (21.0-51.0); MEAN CORPUSCULAR HEMOGLOBIN 31.6 pg (27.0-34.0); MEAN CORPUSCULAR HGB CONC 33.6 g/dL (33.0-35.0); MEAN PLATELET VOLUME 9.6 fL (7.4-11.0); MONOCYTES # (AUTO) 0.9 x10^3/uL (0.3-0.8); MONOCYTES % (AUTO) 6.4 % (0.0-13.0); NEUTROPHILS # (AUTO) 11.8 x10^3/uL (2.2-4.8); NEUTROPHILS % (AUTO) 87.9 % (42.0-75.0); PLATELET COUNT 180 X10^3/uL (150.0-450.0); RED BLOOD COUNT 3.35 X10^6/uL (3.5-5.4); RED CELL DISTRIBUTION WIDTH 13.5 % (11.6-16.5); WHITE BLOOD COUNT 13.5 X10^3/uL (3.6-10.0)
[2016-11-30 06:48] LABS: ALANINE AMINOTRANSFERASE 19 Units/L (12-78); ALBUMIN 2.1 g/dL (3.4-5.0); ALKALINE PHOSPHATASE 55 Units/L (46-116); ASPARTATE AMINO TRANSFERASE 25 Units/L (15-37); BLOOD UREA NITROGEN 82 mg/dL (7-18); CALCIUM 10.5 mg/dL (8.5-10.1); CARBON DIOXIDE 38.8 mmol/L (21-32); CHLORIDE 93 mmol/L (98-107); CREATININE 3.16 mg/dL (0.55-1.02); GLUCOSE 110 mg/dL (65-99); SODIUM 136 mmol/L (136-145); TOTAL PROTEIN 6.6 g/dL (6.4-8.2); eGFR BLACK RACES 18 (>60); eGFR NON BLACK RACES 15 (>60)
[2016-11-30] MEDS ORDERED: K-RIDER 10 MEQ/NS 100 ML 10 MEQ/100 ML BAG IV PRN (08:41)
[2016-11-30] MEDS ORDERED: K-LYTE EFFERVESCENT PO PRN (08:41)
[2016-11-30] MEDS ORDERED: K-DUR TAB 20 MEQ PO PRN (08:41)
[2016-11-30] MEDS ORDERED: POTASSIUM CHLORIDE LIQ 20 MEQ UDC PO PRN (08:41)
[2016-11-30] MEDS: PEPCID 20 MG IV PREMIX* 20 MG/50 ML BAG IV SCH (09:03)
[2016-11-30] MEDS: NS + KCL 40 MEQ/L 1,000 ML IV SCH (10:29)
[2016-11-30] MEDS: CIPRO IV 200 MG PREMIX* 200 MG/100 ML BAG IV SCH ×2 (10:29→21:42)
[2016-11-30] MEDS: VISTARIL PO PRN (13:33)
[2016-12-01] MEDS: NS + KCL 40 MEQ/L 1,000 ML IV SCH ×2 (03:02→21:40)
[2016-12-01] MEDS: FLAGYL IV PREMIX 500 MG BAG 500 MG/100 ML BAG IV SCH ×4 (03:02→21:42)
[2016-12-01 06:14] LABS: BASOPHILS % (AUTO) 0.2 % (0.2-1.0); EOSINOPHILS # (AUTO) 0.1 x10^3/uL (0.0-0.2); EOSINOPHILS % (AUTO) 0.7 % (0.9-2.9); HEMATOCRIT 34.2 % (36.0-47.0); HEMOGLOBIN 11.5 g/dL (12.0-16.0); LYMPHOCYTES # (AUTO) 0.9 X10^3/uL (1.3-2.9); LYMPHOCYTES % (AUTO) 9.2 % (21.0-51.0); MEAN CORPUSCULAR HGB CONC 33.6 g/dL (33.0-35.0); MEAN CORPUSCULAR VOLUME 95.3 fL (80.0-100.0); MEAN PLATELET VOLUME 9.4 fL (7.4-11.0); MONOCYTES # (AUTO) 0.8 x10^3/uL (0.3-0.8); MONOCYTES % (AUTO) 7.8 % (0.0-13.0); NEUTROPHILS # (AUTO) 8.5 x10^3/uL (2.2-4.8); NEUTROPHILS % (AUTO) 82.1 % (42.0-75.0); PLATELET COUNT 206 X10^3/uL (150.0-450.0); RED BLOOD COUNT 3.58 X10^6/uL (3.5-5.4); RED CELL DISTRIBUTION WIDTH 13.5 % (11.6-16.5); WHITE BLOOD COUNT 10.4 X10^3/uL (3.6-10.0)
[2016-12-01 06:19] LABS: ALBUMIN 2.2 g/dL (3.4-5.0); CALCIUM 10.5 mg/dL (8.5-10.1); CARBON DIOXIDE 38.3 mmol/L (21-32); COR CA(FOR HYPOALB) 11.9 mg/dL (8.5-10.1); CREATININE 2.46 mg/dL (0.55-1.02); TOTAL PROTEIN 6.8 g/dL (6.4-8.2)
[2016-12-01] MEDS: CIPRO IV 200 MG PREMIX* 200 MG/100 ML BAG IV SCH ×2 (10:37→21:42)
--- NOTE | 2016-12-01 13:27 | PCM.PROG ---
Progress Note - Progress Note for Day of Date: 12/01/16 - Subjective Subjective: patient is a 86-year-old white female who was admitted on 11/29 with dehydration and complaints of dizziness. Patient was noted to have diverticulitis. Patient has been on IV Flagyl and Cipro with mild improvement. Patient continues to be weak today with improvement of loose stool. Plan to continue IV antibiotics and collect stool studies. We'll repeat a.m. labs - Past Medical Family Social History Past Med/Fam/Surg Hx: No changes since H&P Allergies: Allergies Codeine Allergy (Verified 11/29/16 11:57) Dextromethorphan [From Robitussin-DM] Allergy (Verified 11/29/16 11:57) Ethanol [From Robitussin] Allergy (Verified 11/29/16 11:57) Guaifenesin [From Robitussin] Allergy (Verified 11/29/16 11:57) - Review of Systems ROS: No change since H&P - Vital Signs and I&O's Vital Signs: Temperature 97.4 F Pulse Rate [Left Brachial] 63 Respiratory Rate 22 Blood Pressure [Right Arm] 140/64 Blood Pressure [Left Arm] 151/63 O2 Sat by Pulse Oximetry 98 Intake and Output: Intake & Output 11/29/16 11/30/16 12/01/16 12/02/16 11:59 11:59 11:59 11:59 Intake Total 1358 2115 Balance 1358 2115 - Physical Exam Oriented: Normal Eyes: Normal Ear: Normal Nose: Normal Throat: Normal Respiratory: Diminished Auscultation: Bowel Sounds: Increased Tenderness: RLQ, LUQ, Epigastric Skin: Decreased Turgur Musculoskeletal: Normal Mood Description: Calm Speech Pattern: Clear, Appropriate - Laboratory and Diagnostics Result Diagrams: 12/01/16 04:38 12/01/16 04:38 Labs: 11/29/16 17:56 Urine,Clean Catch Urine Culture - Final Laboratory WBC 10.4 X10^3/uL (3.6-10.0) H 12/01/16 04:38 RBC 3.58 X10^6/uL (3.5-5.4) 12/01/16 04:38 Hgb 11.5 g/dL (12.0-16.0) L 12/01/16 04:38 Hct 34.2 % (36.0-47.0) L 12/01/16 04:38 MCV 95.3 fL (80.0-100.0) 12/01/16 04:38 MCH 32.0 pg (27.0-34.0) 12/01/16 04:38 MCHC 33.6 g/dL (33.0-35.0) 12/01/16 04:38 RDW 13.5 % (11.6-16.5) 12/01/16 04:38 Plt Count 206 X10^3/uL (150.0-450.0) 12/01/16 04:38 MPV 9.4 fL (7.4-11.0) 12/01/16 04:38 Neut % 82.1 % (42.0-75.0) H 12/01/16 04:38 Lymph % 9.2 % (21.0-51.0) L 12/01/16 04:38 [place] % 7.8 % (0.0-13.0) 12/01/16 04:38 Eos % 0.7 % (0.9-2.9) L 12/01/16 04:38 Baso % 0.2 % (0.2-1.0) 12/01/16 04:38 Neut # 8.5 x10^3/uL (2.2-4.8) H 12/01/16 04:38 Lymph # 0.9 X10^3/uL (1.3-2.9) L 12/01/16 04:38 [place] # 0.8 x10^3/uL (0.3-0.8) 12/01/16 04:38 Eos # 0.1 x10^3/uL (0.0-0.2) 12/01/16 04:38 Baso # 0.0 X10^3/uL (0.0-0.1) 12/01/16 04:38 Absolute Nucleated RBC 0.0 /100WBC 12/01/16 04:38 Sodium 144 mmol/L (136-145) 12/01/16 04:38 Corrected Sodium 144 mmol/L (136-145) 12/01/16 04:38 Potassium 3.0 mmol/L (3.5-5.1) L* 12/01/16 04:38 Chloride 103 mmol/L (98-107) 12/01/16 04:38 Carbon Dioxide 38.3 mmol/L (21-32) H 12/01/16 04:38 BUN 65 mg/dL (7-18) H 12/01/16 04:38 Creatinine 2.46 mg/dL (0.55-1.02) H 12/01/16 04:38 Est GFR (MDRD) Af Amer 24 (>60) L 12/01/16 04:38 Est GFR (MDRD) Non-Af 20 (>60) L 12/01/16 04:38 Glucose 111 mg/dL (65-99) H 12/01/16 04:38 Calcium 10.5 mg/dL (8.5-10.1) H 12/01/16 04:38 Corrected Calcium 11.9 mg/dL (8.5-10.1) H 12/01/16 04:38 Magnesium 2.4 mg/dL (1.7-2.9) 11/30/16 03:55 Total Bilirubin 0.40 mg/dL (0.2-1.0) 12/01/16 04:38 AST 21 Units/L (15-37) 12/01/16 04:38 ALT 19 Units/L (12-78) 12/01/16 04:38 Alkaline Phosphatase 60 Units/L (46-116) 12/01/16 04:38 Creatine Kinase 69 Units/L (26-192) 11/29/16 12:15 CK-MB (CK-2) < 1.0 ng/mL (0-4.0) 11/29/16 12:15 CK/CKMB % Calc 1.5 % (<4) 11/29/16 12:15 Troponin I 0.04 ng/mL (0-1.5) 11/29/16 12:15 Total Protein 6.8 g/dL (6.4-8.2) 12/01/16 04:38 Albumin 2.2 g/dL (3.4-5.0) L 12/01/16 04:38 Globulin 4.6 g/dL (2.5-4.5) H 12/01/16 04:38 Albumin/Globulin Ratio 0.5 Ratio (1.1-2.1) L 12/01/16 04:38 Specimen Type Random urine 11/29/16 15:36 Urine Color Yellow (YELLOW) 11/29/16 15:36 Urine Appearance Clear (CLEAR) 11/29/16 15:36 Urine pH 6.5 (5.0 - 8.0) 11/29/16 15:36 Ur Specific [place] 1.005 (1.000-1.030) 11/29/16 15:36 Urine Protein 1+ (NEGATIVE) 11/29/16 15:36 Urine Glucose (UA) Negative (NEGATIVE) 11/29/16 15:36 Urine Ketones Negative (NEGATIVE) 11/29/16 15:36 Urine Occult Blood 1+ (NEGATIVE) 11/29/16 15:36 Urine Nitrite Negative (NEGATIVE) 11/29/16 15:36 Urine Bilirubin Negative (NEGATIVE) 11/29/16 15:36 Urine Urobilinogen Normal (NORMAL) 11/29/16 15:36 Ur Leukocyte Esterase Negative (NEGATIVE) 11/29/16 15:36 Urine RBC 0-3 /HPF (NEGATIVE) 11/29/16 15:36 Urine WBC 0-1 /HPF (NEGATIVE) 11/29/16 15:36 Ur Squamous Epith Cells Few /HPF (NEGATIVE) 11/29/16 15:36 Urine Bacteria Trace /HPF (NEGATIVE) 11/29/16 15:36 Ur Culture Indicated? Yes/culture set up 11/29/16 15:36 Urinalysis Comment Dip only ordered 11/29/16 12:42 - Plan (1) Diverticulitis Status: Acute Qualifiers: Diverticulitis site: D Diverticulitis bleeding: D Diverticulitis complication: D Plan: CONTINUE IV ATBX, IV HYDRATION. COLLECT STOOL STUDIES, ENCOURAGE ORAL HYDRATION. PT (2) Hypokalemia Status: Acute Plan: K+ SUPPLEMENTAL REPLACEMENT, REPEAT AM LABS (3) CAD (coronary artery disease) Status: Chronic Qualifiers: Coronary Disease-Associated Artery/Lesion type: C [place] vs. transplanted heart: N Associated angina: A (4) Diabetes mellitus, type II Status: Chronic Qualifiers: Diabetes mellitus complication status: D Diabetes mellitus complication detail: D Diabetic retinopathy severity: D Proliferative retinopathy type: P Diabetes mellitus macular edema: D Diabetes mellitus custodial insulin use : D Laterality: L Chronic kidney disease stage: C (5) HTN (hypertension) Status: Chronic Qualifiers: Hypertension type: H (6) Hypothyroidism Status: Chronic Qualifiers: Hypothyroidism type: H
[2016-12-01 16:30] LABS: CRYPTOSPORIDIUM PARVUM ANTIGEN NEGATIVE (NEGATIVE); GIARDIA LAMBLIA ANTIGEN NEGATIVE (NEGATIVE)
[2016-12-01 16:33] LABS: STOOL FOR WBC Rare
[2016-12-01] MEDS ORDERED: COLACE CAP 100 MG PO PRN (20:07)
[2016-12-01] MEDS: VISTARIL PO PRN (21:59)
[2016-12-02] MEDS: FLAGYL IV PREMIX 500 MG BAG 500 MG/100 ML BAG IV SCH ×4 (03:06→21:46)
[2016-12-02 07:06] LABS: BASOPHILS # (AUTO) 0.1 X10^3/uL (0.0-0.1); BASOPHILS % (AUTO) 0.6 % (0.2-1.0); EOSINOPHILS # (AUTO) 0.1 x10^3/uL (0.0-0.2); EOSINOPHILS % (AUTO) 1.7 % (0.9-2.9); HEMATOCRIT 33.2 % (36.0-47.0); HEMOGLOBIN 10.9 g/dL (12.0-16.0); LYMPHOCYTES % (AUTO) 11.8 % (21.0-51.0); MEAN CORPUSCULAR HEMOGLOBIN 31.5 pg (27.0-34.0); MEAN CORPUSCULAR HGB CONC 32.7 g/dL (33.0-35.0); MEAN CORPUSCULAR VOLUME 96.5 fL (80.0-100.0); MEAN PLATELET VOLUME 9.4 fL (7.4-11.0); MONOCYTES # (AUTO) 0.7 x10^3/uL (0.3-0.8); MONOCYTES % (AUTO) 8.9 % (0.0-13.0); NEUTROPHILS # (AUTO) 6.4 x10^3/uL (2.2-4.8); PLATELET COUNT 202 X10^3/uL (150.0-450.0); RED BLOOD COUNT 3.44 X10^6/uL (3.5-5.4); RED CELL DISTRIBUTION WIDTH 13.9 % (11.6-16.5); WHITE BLOOD COUNT 8.3 X10^3/uL (3.6-10.0)
[2016-12-02 07:09] LABS: ALBUMIN 2.2 g/dL (3.4-5.0); CALCIUM 10.4 mg/dL (8.5-10.1); COR CA(FOR HYPOALB) 11.8 mg/dL (8.5-10.1); CREATININE 1.97 mg/dL (0.55-1.02); MAGNESIUM 2.1 mg/dL (1.7-2.9); TOTAL PROTEIN 6.7 g/dL (6.4-8.2)
[2016-12-02] MEDS ORDERED: SALINE 3% 15 ML NEB TX ONE (08:05)
[2016-12-02] MEDS ORDERED: SALINE 3% 15 ML NEB TX NEB ONE (08:07)
[2016-12-02] MEDS: PEPCID 20 MG IV PREMIX* 20 MG/50 ML BAG IV SCH (09:01)
[2016-12-02] MEDS: CIPRO IV 200 MG PREMIX* 200 MG/100 ML BAG IV SCH ×2 (09:01→21:46)
[2016-12-02] MEDS ORDERED: BUTT CREAM (COMPOUND) TOP PRN (16:04)
[2016-12-02] MEDS: NS + KCL 40 MEQ/L 1,000 ML IV SCH (16:04)
--- NOTE | 2016-12-02 18:20 | PCM.PROG ---
Progress Note - Progress Note for Day of Date: 12/02/16 - Subjective Subjective: patient is a 86-year-old white female who was admitted on 11/29 with dehydration and complaints of dizziness. Patient was noted to have diverticulitis. Patient has been on IV Flagyl and Cipro with mild improvement. Patient continues to be weak today with improvement of loose stool. Pts renal function improving, wbc improved. Plan to continue IV antibiotics and collect stool studies. We'll repeat a.m. labs - Past Medical Family Social History Past Med/Fam/Surg Hx: No changes since H&P Allergies: Allergies Codeine Allergy (Verified 11/29/16 11:57) Dextromethorphan [From Robitussin-DM] Allergy (Verified 11/29/16 11:57) Ethanol [From Robitussin] Allergy (Verified 11/29/16 11:57) Guaifenesin [From Robitussin] Allergy (Verified 11/29/16 11:57) - Review of Systems ROS: No change since H&P - Vital Signs and I&O's Vital Signs: Temperature 97.6 F Pulse Rate [Left Brachial] 60 Pulse Rate [Right Brachial] 60 Respiratory Rate 18 Blood Pressure [Right Arm] 111/66 Blood Pressure [Left Arm] 151/63 O2 Sat by Pulse Oximetry 99 Intake and Output: Intake & Output 11/30/16 12/01/16 12/02/16 12/03/16 11:59 11:59 11:59 11:59 Intake Total 1358 2115 2638 920 Balance 1358 2115 2638 920 - Physical Exam Oriented: Normal Eyes: Normal Ear: Normal Nose: Normal Throat: Normal Respiratory: Diminished Auscultation: Bowel Sounds: Increased Tenderness: RLQ, LUQ, Epigastric Skin: Decreased Turgur Musculoskeletal: Normal Mood Description: Calm Speech Pattern: Clear, Appropriate - Laboratory and Diagnostics Result Diagrams: 12/02/16 06:33 12/02/16 06:33 Labs: 12/01/16 15:56 Stool Stool Culture - Preliminary 12/01/16 15:56 Stool - Final 11/29/16 17:56 Urine,Clean Catch Urine Culture - Final Laboratory WBC 8.3 X10^3/uL (3.6-10.0) 12/02/16 06:33 RBC 3.44 X10^6/uL (3.5-5.4) L 12/02/16 06:33 Hgb 10.9 g/dL (12.0-16.0) L 12/02/16 06:33 Hct 33.2 % (36.0-47.0) L 12/02/16 06:33 MCV 96.5 fL (80.0-100.0) 12/02/16 06:33 MCH 31.5 pg (27.0-34.0) 12/02/16 06:33 MCHC 32.7 g/dL (33.0-35.0) L 12/02/16 06:33 RDW 13.9 % (11.6-16.5) 12/02/16 06:33 Plt Count 202 X10^3/uL (150.0-450.0) 12/02/16 06:33 MPV 9.4 fL (7.4-11.0) 12/02/16 06:33 Neut % 77.0 % (42.0-75.0) H 12/02/16 06:33 Lymph % 11.8 % (21.0-51.0) L 12/02/16 06:33 [place] % 8.9 % (0.0-13.0) 12/02/16 06:33 Eos % 1.7 % (0.9-2.9) 12/02/16 06:33 Baso % 0.6 % (0.2-1.0) 12/02/16 06:33 Neut # 6.4 x10^3/uL (2.2-4.8) H 12/02/16 06:33 Lymph # 1.0 X10^3/uL (1.3-2.9) L 12/02/16 06:33 [place] # 0.7 x10^3/uL (0.3-0.8) 12/02/16 06:33 Eos # 0.1 x10^3/uL (0.0-0.2) 12/02/16 06:33 Baso # 0.1 X10^3/uL (0.0-0.1) 12/02/16 06:33 Absolute Nucleated RBC 0.0 /100WBC 12/02/16 06:33 Sodium 145 mmol/L (136-145) 12/02/16 06:33 Corrected Sodium 146 mmol/L (136-145) H 12/02/16 06:33 Potassium 3.7 mmol/L (3.5-5.1) 12/02/16 06:33 Chloride 106 mmol/L (98-107) 12/02/16 06:33 Carbon Dioxide 34.0 mmol/L (21-32) H 12/02/16 06:33 BUN 53 mg/dL (7-18) H 12/02/16 06:33 Creatinine 1.97 mg/dL (0.55-1.02) H 12/02/16 06:33 Est GFR (MDRD) Af Amer 31 (>60) L 12/02/16 06:33 Est GFR (MDRD) Non-Af 25 (>60) L 12/02/16 06:33 Glucose 139 mg/dL (65-99) H 12/02/16 06:33 Calcium 10.4 mg/dL (8.5-10.1) H 12/02/16 06:33 Corrected Calcium 11.8 mg/dL (8.5-10.1) H 12/02/16 06:33 Magnesium 2.1 mg/dL (1.7-2.9) 12/02/16 06:33 Total Bilirubin 0.40 mg/dL (0.2-1.0) 12/02/16 06:33 AST 19 Units/L (15-37) 12/02/16 06:33 ALT 15 Units/L (12-78) 12/02/16 06:33 Alkaline Phosphatase 52 Units/L (46-116) 12/02/16 06:33 Creatine Kinase 69 Units/L (26-192) 11/29/16 12:15 CK-MB (CK-2) < 1.0 ng/mL (0-4.0) 11/29/16 12:15 CK/CKMB % Calc 1.5 % (<4) 11/29/16 12:15 Troponin I 0.04 ng/mL (0-1.5) 11/29/16 12:15 Total Protein 6.7 g/dL (6.4-8.2) 12/02/16 06:33 Albumin 2.2 g/dL (3.4-5.0) L 12/02/16 06:33 Globulin 4.5 g/dL (2.5-4.5) 12/02/16 06:33 Albumin/Globulin Ratio 0.5 Ratio (1.1-2.1) L 12/02/16 06:33 Specimen Type Random urine 11/29/16 15:36 Urine Color Yellow (YELLOW) 11/29/16 15:36 Urine Appearance Clear (CLEAR) 11/29/16 15:36 Urine pH 6.5 (5.0 - 8.0) 11/29/16 15:36 Ur Specific [place] 1.005 (1.000-1.030) 11/29/16 15:36 Urine Protein 1+ (NEGATIVE) 11/29/16 15:36 Urine Glucose (UA) Negative (NEGATIVE) 11/29/16 15:36 Urine Ketones Negative (NEGATIVE) 11/29/16 15:36 Urine Occult Blood 1+ (NEGATIVE) 11/29/16 15:36 Urine Nitrite Negative (NEGATIVE) 11/29/16 15:36 Urine Bilirubin Negative (NEGATIVE) 11/29/16 15:36 Urine Urobilinogen Normal (NORMAL) 11/29/16 15:36 Ur Leukocyte Esterase Negative (NEGATIVE) 11/29/16 15:36 Urine RBC 0-3 /HPF (NEGATIVE) 11/29/16 15:36 Urine WBC 0-1 /HPF (NEGATIVE) 11/29/16 15:36 Ur Squamous Epith Cells Few /HPF (NEGATIVE) 11/29/16 15:36 Urine Bacteria Trace /HPF (NEGATIVE) 11/29/16 15:36 Ur Culture Indicated? Yes/culture set up 11/29/16 15:36 Urinalysis Comment Dip only ordered 11/29/16 12:42 Stool Description 2g,darkbrown,soft 12/01/16 15:56 Stl Occult Blood (IFOB) Positive (NEGATIVE) A 12/01/16 15:56 Stool for White Cells Rare (None) 12/01/16 15:56 Stl C. diff Tox B Gene Negative (NEGATIVE) 12/01/16 15:56 Stl C. diff [id number] Negative (NEGATIVE) 12/01/16 15:56 Cryptosporid parvum Ag Negative (NEGATIVE) 12/01/16 15:56 E. histolytica Antigen Negative (NEGATIVE) 12/01/16 15:56 Giardia lamblia Ag Negative (NEGATIVE) 12/01/16 15:56 - Plan (1) Diverticulitis Status: Acute Qualifiers: Diverticulitis site: D Diverticulitis bleeding: D Diverticulitis complication: D Plan: CONTINUE IV ATBX, IV HYDRATION. COLLECT STOOL STUDIES, ENCOURAGE ORAL HYDRATION. PT (2) Hypokalemia Status: Acute Plan: K+ SUPPLEMENTAL REPLACEMENT, REPEAT AM LABS (3) CAD (coronary artery disease) Status: Chronic Qualifiers: Coronary Disease-Associated Artery/Lesion type: C [place] vs. transplanted heart: N Associated angina: A (4) Diabetes mellitus, type II Status: Chronic Qualifiers: Diabetes mellitus complication status: D Diabetes mellitus complication detail: D Diabetic retinopathy severity: D Proliferative retinopathy type: P Diabetes mellitus macular edema: D Diabetes mellitus retirement insulin use : D Laterality: L Chronic kidney disease stage: C (5) HTN (hypertension) Status: Chronic Qualifiers: Hypertension type: H (6) Hypothyroidism Status: Chronic Qualifiers: Hypothyroidism type: H
[2016-12-02] MEDS: VISTARIL PO PRN (21:46)
[2016-12-03] MEDS: NS + KCL 40 MEQ/L 1,000 ML IV SCH ×2 (02:31→02:32)
[2016-12-03] MEDS: FLAGYL IV PREMIX 500 MG BAG 500 MG/100 ML BAG IV SCH ×2 (02:33→09:28)
[2016-12-03 06:07] LABS: BASOPHILS % (AUTO) 0.6 % (0.2-1.0); EOSINOPHILS # (AUTO) 0.1 x10^3/uL (0.0-0.2); EOSINOPHILS % (AUTO) 1.7 % (0.9-2.9); HEMATOCRIT 33.2 % (36.0-47.0); LYMPHOCYTES # (AUTO) 1.2 X10^3/uL (1.3-2.9); LYMPHOCYTES % (AUTO) 16.5 % (21.0-51.0); MEAN CORPUSCULAR VOLUME 96.9 fL (80.0-100.0); MONOCYTES # (AUTO) 0.7 x10^3/uL (0.3-0.8); MONOCYTES % (AUTO) 9.4 % (0.0-13.0); NEUTROPHILS # (AUTO) 5.3 x10^3/uL (2.2-4.8); NEUTROPHILS % (AUTO) 71.8 % (42.0-75.0); PLATELET COUNT 204 X10^3/uL (150.0-450.0); RED BLOOD COUNT 3.42 X10^6/uL (3.5-5.4); RED CELL DISTRIBUTION WIDTH 13.8 % (11.6-16.5); WHITE BLOOD COUNT 7.4 X10^3/uL (3.6-10.0)
[2016-12-03 06:15] LABS: ALBUMIN 2.2 g/dL (3.4-5.0); CALCIUM 10.2 mg/dL (8.5-10.1); CARBON DIOXIDE 33.2 mmol/L (21-32); COR CA(FOR HYPOALB) 11.6 mg/dL (8.5-10.1); CREATININE 1.66 mg/dL (0.55-1.02); TOTAL PROTEIN 6.5 g/dL (6.4-8.2)
[2016-12-03 08:13] VITALS: BP 148/70
[2016-12-03] MEDS: CIPRO IV 200 MG PREMIX* 200 MG/100 ML BAG IV SCH (09:28)
--- NOTE | 2016-12-05 20:52 | DR.H&P ---
H&P - History & Physical for Day of: H&P Date: 11/29/16 - Chief Complaint Chief Complaint: weakness and SOB with abdominal pain - Allergies Allergies/Adverse Reactions: Allergies Allergy/AdvReac Type Severity Reaction Status Date / Time Codeine Allergy Verified 11/29/16 11:57 Dextromethorphan Allergy Verified 11/29/16 11:57 [From Robitussin-DM] Ethanol [From Robitussin] Allergy Verified 11/29/16 11:57 Guaifenesin [From Robitussin] Allergy Verified 11/29/16 11:57 - History of Present Illness History of Present Illness: PT. C/O GENERALIZED WEAKNESS, SHORTNESS OF BREATH, AND ABDOMINAL PAIN. PT. LIVES WITH HER SISTER WHO IS WHEELCHAIR DEPENDENT AND FELL IN THE HOME ABOUT 2 DAYS AGO. - Past Medical History Past Medical History: CHF, Coronary Artery Disease, Diabetes, Hypertension - Past Surgical History Surgical History: Angioplasty/Stents, Hysterectomy, Other - Family History Family Medical History: Diabetes Mellitus, [place], Coronary Artery Disease - Social History Does patient currently use any type of tobacco product: No Have you used tobacco products in the last 12 months: No Type of Tobacco Use: None Does any household member use tobacco: No Alcohol Use: None Drug Use: None - Medications Home Medications: Brimonidine Tartrate-Timolol M [COMBIGAN (Ophth) drops 0.2%/0.5% *] 1 drop AFFEYE BID 11/29/16 [History Confirmed 11/29/16] Brimonidine Tartrate-Timolol M [COMBIGAN (Ophth) drops 0.2%/0.5% *] 1 drop AFFEYE Q12H 11/29/16 [History Confirmed 11/29/16] Ferrous Sulfate [FERROUS SULFATE *] 325 mg PO TID 11/29/16 [History Confirmed ] Ipratropium [place] (Nasal) [Ipratropium [place] nasal spr 0.03 %] 1 vial NEB Q6H 11/29/16 [History Confirmed 11/29/16] Levalbuterol Hfa Inhaler [XOPENEX HFA INHALER *] 1 each INH NEEDED 11/29/16 [ History Confirmed 11/29/16] Montelukast Sodium 10 mg PO HS 11/29/16 [History Confirmed 11/29/16] Mupirocin [Bactroban] 1 each TOP BID 11/29/16 [History Confirmed 11/29/16] Ondansetron HCl 4 mg PO PRN PRN 11/29/16 [History Confirmed 11/29/16] - Review of Systems Constitutional: Weakness Eyes: No Symptoms Reported ENT: No Symptoms Reported Respiratory: Shortness of Breath Cardiovascular: No Symptoms Reported Gastrointestinal: Abdominal Pain, Diarrhea Genitourinary: No Symptoms Reported Musculoskeletal: No Symptoms Reported Skin: No Symptoms Reported Neurological: No Symptoms Reported - Physical Exam Vital Signs: Temperature 98.4 F Pulse Rate [Left Brachial] 61 Pulse Rate [Right Brachial] 60 Respiratory Rate 18 Blood Pressure [Right Arm] 164/69 Blood Pressure [Left Arm] 148/70 O2 Sat by Pulse Oximetry 97 Oriented: Normal Eyes: Normal Ear: Normal Nose: Normal Throat: Normal Respiratory: Clear Throughout Cardiovascular: Normal : Normal Auscultation: Bowel Sounds: Normal Palpation: Normal Tenderness: LUQ, LLQ Skin: Normal Musculoskeletal: Normal Psychiatric: Normal Mood Description: Calm Affect: Normal Speech Pattern: Clear - Assessment/Plan (1) Abdominal pain Qualifiers: Abdominal location: generalized Qualified Code(s): R10.84 - Generalized abdominal pain Status: Acute Plan: Monitor labs, BMs (2) Acute diverticulitis Status: Acute Plan: IV Flagyl (3) Dyspnea Qualifiers: Dyspnea type: shortness of breath Qualified Code(s): R06.02 - Shortness of breath Status: Acute Plan: O2 as needed
== END 2016-12-03 15:20 | disposition home or self-care (01) | DRG 392 ==
LOC: ER 11:42 → MED/SURG 14:48
PROVIDERS: ADMIT Internal Medicine; ATTEND Internal Medicine
DX: K57.92 Diverticulitis of intestine, part unspecified, without perforation or abscess without bleeding (principal); R10.84 Generalized abdominal pain; R06.02 Shortness of breath; R53.1 Weakness; R11.2 Nausea with vomiting, unspecified; R94.31 Abnormal electrocardiogram [ECG] [EKG]; R26.89 Other abnormalities of gait and mobility
CPT/HCPCS: 36415; 70450; 71010; 74176; 80053; 81001; 81003; 82270; 82550; 82553; 83735; 84132; 84484; 85025; 87045; 87086; 87205; 87328; 87329; 87336; 87493; 87899; 93005; 93010; 94640; 94760; 96365; 96374; 97535; 99221; 99284; A4222; Q0177; S0028; S0030; J0744; J3480

== ENCOUNTER 2016-12-19 15:30 | Inpatient (IN) | payer OTHER ==
--- NOTE | 2016-12-19 15:52 | DR.GENAD ---
HPI - PCP Primary Care Physician: LISA - HPI Comment HPI Comment: HER SYMTOMS ARE GETTING WORSE. HELD HER BP MEDS. NO FEVER. DID FEEL FERVERISH AT HOME. - Complaint/Symptoms Chief Complaint Doctors Comments: LOW BLOOD PRESSURE TIMES 3 DAYS AND ABDOMINAL PAIN THAT IS WORSE TODAY.INCREASING SOB FOR FEW DAYS Chief Complaint:: PT C/O LOW BLOOD PRESSURE. PT STATES SHE HAS BEEN BATTLING LOW BLOOD PRESSURE THE PAST FEW DAYS AND SHE HAS NOT BEEN TAKING HER B/P MEDICATIONS. PT'S BREATHING IS NOTED TO BE VERY LABORED UPON EXERTION. PT C/O RT SIDED ABD PAIN. PT STATES SHE HAS HAD A PROBLEM WITH HER DIVERTICULITIS. 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 negative: Chills, Diaphoresis, Fever Eyes: No Symptoms Reported ENTM: No Symptoms Reported. negative: Ear Pain, Nose Discharge, Nose Congestion , Throat Pain Respiratoy: Non-Productive Cough, Short of Breath, Wheezing. negative: Hemoptysis Cardiovascular: Other (HYPOTENSION) Gastrointestinal/Abdominal: Abdominal Pain, Nausea. negative: Diarrhea, Vomiting Genitourinary: Other (DECRESE URINE OUTPUI). negative: Dysuria, Frequency, Hematuria Musculoskeletal: Muscle Pain Integumentary: Dryness Hematologic/Lymphatic: No Symptoms Reported, Easy Bruising Endocrine: No Symptoms Reported All Other Systems: Reviewed and Negative PE - Vital Signs Vitals: Temperature 98.4 F Pulse Rate [Right Radial] 61 Pulse Rate 77 Respiratory Rate 20 Blood Pressure [Right Arm] 121/66 Blood Pressure [Left Arm] 148/70 Blood Pressure 142/74 O2 Sat by Pulse Oximetry 100 - General Limitations: No Limitations General Appearance: Alert - Head Head Exam: Normal Inspection - Eyes Eye exam: Normal Appearance - ENT ENT Exam: Normal External Ear Exam External Ear Exam: Normal External Inspection TM/Canal Exam: Bilateral Normal Nose Exam: Normal Nose Exam Mouth Exam: Normal Inspection Throat Exam: Normal Inspection - Neck Neck Exam: Normal Inspection - Chest Chest Inspection: Normal Inspection - Respiratory Respiratory Exam: Normal Lung Sounds Bilat Respiratory Exam: Bilateral Wheezing, Bilateral Rhonchi, Lower Wheezing, Lower Rhonchi - Cardiovascular Cardiovascular Exam: Regular Rate, Normal Rhythm, Normal Heart Sounds - Abdominal Exam Abdominal Exam: Normal Bowel Sounds, Soft, Tenderness Abdominal Tenderness: Diffuse, Moderate - Extremities Extremities Exam: Edema (TRACE) - Back Back Exam: Paraspinal Tenderness - Neurologic Neurological Exam: Alert, Oriented X3 (D), Other (LIGALLY BLINF, DECREAZZZZ) - Psychiatric Psychiatric Exam: Normal Affect, Normal Mood - Skin Skin Exam: Dry MDM - Differential Diagnosis Differential Diagnosis: ABDOMINAL PAIN, BOWEL OBST, SOB, COPD, HYPOTENSION, Course - Consultation Consultation Comments: DISCUSS PATIENT WITH DR. ABEL. HE WILL ADMIT PATIENT. - Education/Counseling Education/Counseling: Patient, Education Educated On: Treatment, Diagnosis ROR - Labs Reviewed Laboratory Results Reviewed?: Yes Result Diagrams: 12/19/16 16:18 12/20/16 04:35 Laboratory: WBC 6.6 X10^3/uL (3.6-10.0) 12/19/16 16:18 RBC 3.55 X10^6/uL (3.5-5.4) 12/19/16 16:18 Hgb 11.3 g/dL (12.0-16.0) L 12/19/16 16:18 Hct 33.4 % (36.0-47.0) L 12/19/16 16:18 MCV 94.0 fL (80.0-100.0) 12/19/16 16:18 MCH 31.9 pg (27.0-34.0) 12/19/16 16:18 MCHC 34.0 g/dL (33.0-35.0) 12/19/16 16:18 RDW 13.3 % (11.6-16.5) 12/19/16 16:18 Plt Count 182 X10^3/uL (150.0-450.0) 12/19/16 16:18 MPV 8.8 fL (7.4-11.0) 12/19/16 16:18 Neut % 64.1 % (42.0-75.0) 12/19/16 16:18 Lymph % 23.3 % (21.0-51.0) 12/19/16 16:18 [place] % 9.5 % (0.0-13.0) 12/19/16 16:18 Eos % 2.6 % (0.9-2.9) 12/19/16 16:18 Baso % 0.5 % (0.2-1.0) 12/19/16 16:18 Neut # 4.2 x10^3/uL (2.2-4.8) 12/19/16 16:18 Lymph # 1.5 X10^3/uL (1.3-2.9) 12/19/16 16:18 [place] # 0.6 x10^3/uL (0.3-0.8) 12/19/16 16:18 Eos # 0.2 x10^3/uL (0.0-0.2) 12/19/16 16:18 Baso # 0.0 X10^3/uL (0.0-0.1) 12/19/16 16:18 Absolute Nucleated RBC 0.0 /100WBC 12/19/16 16:18 Sodium 136 mmol/L (136-145) 12/19/16 16:18 Corrected Sodium 138 mmol/L (136-145) 12/19/16 16:18 Potassium 3.2 mmol/L (3.5-5.1) L 12/19/16 16:18 Chloride 93 mmol/L (98-107) L 12/19/16 16:18 Carbon Dioxide 42.9 mmol/L (21-32) H* 12/19/16 16:18 BUN 42 mg/dL (7-18) H 12/19/16 16:18 Creatinine 2.33 mg/dL (0.55-1.02) H 12/19/16 16:18 Est GFR (MDRD) Af Amer 25 (>60) L 12/19/16 16:18 Est GFR (MDRD) Non-Af 21 (>60) L 12/19/16 16:18 Glucose 200 mg/dL (65-99) H 12/19/16 16:18 Calcium 11.7 mg/dL (8.5-10.1) H 12/19/16 16:18 Corrected Calcium 12.7 mg/dL (8.5-10.1) H 12/19/16 16:18 Total Bilirubin 0.30 mg/dL (0.2-1.0) 12/19/16 16:18 AST 25 Units/L (15-37) 12/19/16 16:18 ALT 21 Units/L (12-78) 12/19/16 16:18 Alkaline Phosphatase 74 Units/L (46-116) 12/19/16 16:18 Creatine Kinase 12 Units/L (26-192) L 12/19/16 16:18 CK-MB (CK-2) < 1.0 ng/mL (0-4.0) 12/19/16 16:18 CK/CKMB % Calc 8.3 % (<4) 12/19/16 16:18 Troponin I 0.03 ng/mL (0-1.5) 12/19/16 16:18 B-Natriuretic Peptide 531 pg/mL (0-79) H* 12/19/16 16:20 Total Protein 6.9 g/dL (6.4-8.2) 12/19/16 16:18 Albumin 2.7 g/dL (3.4-5.0) L 12/19/16 16:18 Globulin 4.2 g/dL (2.5-4.5) 12/19/16 16:18 Albumin/Globulin Ratio 0.6 Ratio (1.1-2.1) L 12/19/16 16:18 Specimen Type Clean catch urine 12/19/16 16:37 Urine Color Yellow (YELLOW) 12/19/16 16:37 Urine Appearance Clear (CLEAR) 12/19/16 16:37 Urine pH 7.0 (5.0 - 8.0) 12/19/16 16:37 Ur Specific [place] 1.005 (1.000-1.030) 12/19/16 16:37 Urine Protein Negative (NEGATIVE) 12/19/16 16:37 Urine Glucose (UA) Negative (NEGATIVE) 12/19/16 16:37 Urine Ketones Negative (NEGATIVE) 12/19/16 16:37 Urine Occult Blood Negative (NEGATIVE) 12/19/16 16:37 Urine Nitrite Negative (NEGATIVE) 12/19/16 16:37 Urine Bilirubin Negative (NEGATIVE) 12/19/16 16:37 Urine Urobilinogen Normal (NORMAL) 12/19/16 16:37 Ur Leukocyte Esterase 1+ (NEGATIVE) 12/19/16 16:37 Urine RBC 0-2 /HPF (NEGATIVE) 12/19/16 16:37 Urine WBC 0-2 /HPF (NEGATIVE) 12/19/16 16:37 Ur Squamous Epith Cells Rare /HPF (NEGATIVE) 12/19/16 16:37 Urine Bacteria Trace /HPF (NEGATIVE) 12/19/16 16:37 Ur Culture Indicated? No/not indicated 12/19/16 16:37 - XRAY XRAY Interpreted by: Radiologist - EKG Rhythm: NSR - Diagnosis Discharge Problem: Dehydration Diverticulitis Qualifiers: Diverticulitis bleeding: unspecified bleeding status Diverticulitis complication: without perforation or abscess Abdominal pain Qualifiers: Abdominal location: generalized Qualified Code(s): R10.84 - Generalized abdominal pain Hypotension Qualifiers: Hypotension type: other hypotension type Qualified Code(s): I95.89 - Other hypotension - Discharge Plan Disposition: ADMITTED INPATIENT Condition: Stable - Follow ups/Referrals - Instructions
[2016-12-19] MEDS ORDERED: NS 1000 ML 1,000 ML IV SCH (16:00)
[2016-12-19 16:23] LABS: BASOPHILS % (AUTO) 0.5 % (0.2-1.0); EOSINOPHILS # (AUTO) 0.2 x10^3/uL (0.0-0.2); EOSINOPHILS % (AUTO) 2.6 % (0.9-2.9); HEMATOCRIT 33.4 % (36.0-47.0); HEMOGLOBIN 11.3 g/dL (12.0-16.0); LYMPHOCYTES # (AUTO) 1.5 X10^3/uL (1.3-2.9); LYMPHOCYTES % (AUTO) 23.3 % (21.0-51.0); MEAN CORPUSCULAR HEMOGLOBIN 31.9 pg (27.0-34.0); MEAN PLATELET VOLUME 8.8 fL (7.4-11.0); MONOCYTES # (AUTO) 0.6 x10^3/uL (0.3-0.8); MONOCYTES % (AUTO) 9.5 % (0.0-13.0); NEUTROPHILS # (AUTO) 4.2 x10^3/uL (2.2-4.8); NEUTROPHILS % (AUTO) 64.1 % (42.0-75.0); PLATELET COUNT 182 X10^3/uL (150.0-450.0); RED BLOOD COUNT 3.55 X10^6/uL (3.5-5.4); RED CELL DISTRIBUTION WIDTH 13.3 % (11.6-16.5); WHITE BLOOD COUNT 6.6 X10^3/uL (3.6-10.0)
[2016-12-19 16:43] LABS: BILIRUBIN,URINE NEGATIVE (NEGATIVE); BLOOD/HEMOGLOBIN,URINE NEGATIVE (NEGATIVE); GLUCOSE, URINE NEGATIVE (NEGATIVE); KETONES,URINE NEGATIVE (NEGATIVE); LEUKOCYTE ESTERASE ,URINE 1+ (NEGATIVE); NITRITES,URINE NEGATIVE (NEGATIVE); PROTEIN,URINE NEGATIVE (NEGATIVE); UROBILINOGEN,URINE NORMAL (NORMAL)
[2016-12-19 16:48] LABS: ALANINE AMINOTRANSFERASE 21 Units/L (12-78); ALBUMIN 2.7 g/dL (3.4-5.0); ALKALINE PHOSPHATASE 74 Units/L (46-116); ASPARTATE AMINO TRANSFERASE 25 Units/L (15-37); BLOOD UREA NITROGEN 42 mg/dL (7-18); CALCIUM 11.7 mg/dL (8.5-10.1); CHLORIDE 93 mmol/L (98-107); CKMB % 8.3 % (<4); COR CA(FOR HYPOALB) 12.7 mg/dL (8.5-10.1); COR NA(FOR HYPERGLY) 138 mmol/L (136-145); CREATINE KINASE 12 Units/L (26-192); CREATINE KINASE MB < 1.0 ng/mL (0-4.0); CREATININE 2.33 mg/dL (0.55-1.02); GLUCOSE 200 mg/dL (65-99); SODIUM 136 mmol/L (136-145); TOTAL PROTEIN 6.9 g/dL (6.4-8.2); TROPONIN I 0.03 ng/mL (0-1.5); eGFR BLACK RACES 25 (>60); eGFR NON BLACK RACES 21 (>60)
[2016-12-19 16:49] LABS: CARBON DIOXIDE 42.9 mmol/L (21-32)
[2016-12-19 17:00] LABS: APPEARANCE,URINE CLEAR (CLEAR); BACTERIA,URINE TRACE /HPF (NEGATIVE); COLOR,URINE YELLOW (YELLOW); RBC,URINE 0-2 /HPF (NEGATIVE); SQUAMOUS EPITHELIAL CELL,UR RARE /HPF (NEGATIVE)
--- NOTE | 2016-12-19 17:55 | CT ---
HISTORY: Abdominal pain, diverticulitis Study: CT abdomen and pelvis without contrast Comparison: November 29, 2016 Technique: Multiple axial images of the abdomen and pelvis were obtained from the lung bases to the pubic symph ysis without the administration of IV contrast. Findings: Minimal atelectasis and scarring are seen within the visualized lungs. Atherosclerotic changes are s een within the visualized coronary arteries and aorta. The liver, spleen, pancreas, adrenals, and ri ght kidney are grossly unremarkable in appearance given limitations of this noncontrast exam. Cyst i s again noted. No CT evidence of hydronephrosis is identified. Evaluation of the stomach, small gary l, and colon is limited without oral contrast. Numerous scattered diverticula are seen within the di stal descending and sigmoid colon. Pericolonic fat stranding is seen near the junction of the descen ding and sigmoid colon as well as adjacent to the proximal to mid sigmoid colon in keeping with dive rticulitis. The urinary bladder wall has a thickened appearance which may in part be due to incomple te distension however continued followup is recommended. A moderate-sized hiatal hernia is noted. A small amount of sludge and or a few tiny stones are again noted within the gallbladder. IMPRESSION: 1. Findings compatible with diverticulitis as noted above. 2. Cholelithiasis. 3. Moderate-sized hiatal hernia. 4. Thickened appearance of the urinary bladder wall which may be further evaluated with ultrasound a nd or cystoscopy. When appropriate. Reported By:
[2016-12-19] MEDS ORDERED: PEPCID 20 MG IV PREMIX* 20 MG/50 ML BAG IV PRN (18:41)
[2016-12-19] MEDS ORDERED: TYLENOL 325 MG TAB PO PRN (18:41)
[2016-12-19] MEDS ORDERED: ZOFRAN INJ 4 MG VIAL IVP PRN (18:41)
[2016-12-19] MEDS ORDERED: MORPHINE SULFATE INJ 2 MG IVP PRN (18:41)
[2016-12-19 20:30] VITALS: BMI 23.3
--- NOTE | 2016-12-19 21:20 | RAD ---
HISTORY: Weakness. Study: Single-view chest. Comparison: November 29, 2016. Findings: The trachea is midline. The cardiac silhouette is enlarged similar to the comparison study. There is a dual lead cardiac pacing device on the left. Biapical pleural parenchymal thickening/scarring is noted. The lungs are otherwise clear without focal consolidation, pleural effusion or pneumothorax. The bony thorax is grossly unremarkable. IMPRESSION: No acute cardiopulmonary disease. Reported By:
[2016-12-19] MEDS: COMBIGAN EYE DROPS EACHEYE SCH (22:08)
[2016-12-19] MEDS: FLAGYL IV PREMIX 500 MG BAG 500 MG/100 ML BAG IV SCH (22:11)
[2016-12-19] MEDS: K-DUR TAB 20 MEQ PO SCH (22:11)
[2016-12-19] MEDS: SINGULAIR TAB 10 MG PO SCH (22:11)
[2016-12-19] MEDS: COREG TAB 6.25 MG PO SCH (22:11)
[2016-12-19] MEDS: PRAVACHOL PO SCH (22:12)
[2016-12-19] MEDS: LASIX PO SCH (22:12)
[2016-12-19] MEDS: FERROUS SULFATE PO SCH (22:12)
[2016-12-19] MEDS: NS 1000 ML 1,000 ML with POTASSIUM CHLORIDE INJ 10 MEQ VIAL 10 MEQ IV SCH ×2 (22:28)
[2016-12-19] MEDS: MILK OF MAGNESIA PO SCH (22:33)
[2016-12-19 22:46] LABS: CKMB % 5.9 % (<4); CREATINE KINASE 17 Units/L (26-192); CREATINE KINASE MB < 1.0 ng/mL (0-4.0); TROPONIN I 0.03 ng/mL (0-1.5)
[2016-12-19] MEDS: CIPRO IV 200 MG PREMIX* 200 MG/100 ML BAG IV SCH (23:30)
[2016-12-20] MEDS: DUONEB 0.5 MG/3 MG NEB SCH ×4 (00:50→17:00)
[2016-12-20] MEDS: FLAGYL IV PREMIX 500 MG BAG 500 MG/100 ML BAG IV SCH ×4 (03:43→22:34)
[2016-12-20 05:20] LABS: ALBUMIN 2.3 g/dL (3.4-5.0); CALCIUM 11.4 mg/dL (8.5-10.1); COR CA(FOR HYPOALB) 12.8 mg/dL (8.5-10.1); CREATININE 1.95 mg/dL (0.55-1.02); TOTAL PROTEIN 6.1 g/dL (6.4-8.2); TROPONIN I 0.04 ng/mL (0-1.5)
[2016-12-20 05:24] LABS: CARBON DIOXIDE 40.8 mmol/L (21-32)
[2016-12-20 05:45] LABS: CKMB % 2.5 % (<4); CREATINE KINASE MB 0.4 ng/mL (0-4.0)
[2016-12-20 05:59] LABS: BASOPHILS % (AUTO) 0.5 % (0.2-1.0); EOSINOPHILS # (AUTO) 0.1 x10^3/uL (0.0-0.2); EOSINOPHILS % (AUTO) 2.4 % (0.9-2.9); HEMATOCRIT 30.2 % (36.0-47.0); HEMOGLOBIN 10.5 g/dL (12.0-16.0); LYMPHOCYTES # (AUTO) 1.8 X10^3/uL (1.3-2.9); LYMPHOCYTES % (AUTO) 34.8 % (21.0-51.0); MEAN CORPUSCULAR HEMOGLOBIN 32.5 pg (27.0-34.0); MEAN CORPUSCULAR VOLUME 93.1 fL (80.0-100.0); MEAN PLATELET VOLUME 9.1 fL (7.4-11.0); MONOCYTES # (AUTO) 0.5 x10^3/uL (0.3-0.8); MONOCYTES % (AUTO) 8.9 % (0.0-13.0); NEUTROPHILS # (AUTO) 2.8 x10^3/uL (2.2-4.8); NEUTROPHILS % (AUTO) 53.4 % (42.0-75.0); PLATELET COUNT 162 X10^3/uL (150.0-450.0); RED BLOOD COUNT 3.24 X10^6/uL (3.5-5.4); WHITE BLOOD COUNT 5.3 X10^3/uL (3.6-10.0)
[2016-12-20] MEDS: SYNTHROID 75 mcg TAB PO SCH (06:25)
[2016-12-20] MEDS: FERROUS SULFATE PO SCH ×3 (06:25→21:16)
[2016-12-20] MEDS ORDERED: PEPCID 20 MG IV PREMIX* 20 MG/50 ML BAG IV PRN (07:45)
[2016-12-20] MEDS ORDERED: K-RIDER 10 MEQ/NS 100 ML 10 MEQ/100 ML BAG IV PRN (07:54)
[2016-12-20] MEDS ORDERED: K-LYTE EFFERVESCENT PO PRN (07:54)
[2016-12-20] MEDS ORDERED: K-DUR TAB 20 MEQ PO PRN (07:54)
[2016-12-20] MEDS: ASPIRIN EC 81 MG PO SCH (08:37)
[2016-12-20] MEDS: TAB-A-VITE PO SCH (08:37)
[2016-12-20] MEDS: ROCALTROL PO SCH (08:37)
[2016-12-20] MEDS: LASIX PO SCH ×2 (08:38→22:34)
[2016-12-20] MEDS: ZAROXOYLN PO SCH (08:38)
[2016-12-20] MEDS: K-DUR TAB 20 MEQ PO SCH ×2 (08:38→21:16)
[2016-12-20] MEDS: POTASSIUM CHLORIDE LIQ 20 MEQ UDC PO PRN (08:38)
[2016-12-20] MEDS: PLAVIX PO SCH (08:38)
[2016-12-20] MEDS: MILK OF MAGNESIA PO SCH (08:42)
[2016-12-20] MEDS: COREG TAB 6.25 MG PO SCH ×2 (08:52→21:16)
[2016-12-20] MEDS: CIPRO IV 200 MG PREMIX* 200 MG/100 ML BAG IV SCH ×2 (11:10→21:13)
[2016-12-20] MEDS: COMBIGAN EYE DROPS EACHEYE SCH ×2 (11:13→21:16)
[2016-12-20] MEDS ORDERED: ZOFRAN TAB 4 MG PO PRN (11:40)
[2016-12-20] MEDS: NS 1000 ML 1,000 ML with POTASSIUM CHLORIDE INJ 10 MEQ VIAL 10 MEQ IV SCH ×2 (21:14)
[2016-12-20] MEDS: COLACE CAP 100 MG PO SCH (21:15)
[2016-12-20] MEDS: SNACK - Diabetic Appropriate PO SCH (21:17)
[2016-12-20] MEDS: HumuLIN R SUBCUT PRN (22:09)
[2016-12-20] MEDS: SINGULAIR TAB 10 MG PO SCH (22:35)
[2016-12-20] MEDS: PRAVACHOL PO SCH (22:35)
[2016-12-21] MEDS: MILK OF MAGNESIA PO SCH ×3 (00:35→22:14)
[2016-12-21] MEDS: DUONEB 0.5 MG/3 MG NEB SCH ×4 (00:55→18:02)
[2016-12-21] MEDS: FLAGYL IV PREMIX 500 MG BAG 500 MG/100 ML BAG IV SCH ×4 (04:32→22:15)
[2016-12-21 05:20] LABS: ALANINE AMINOTRANSFERASE 19 Units/L (12-78); ALBUMIN 2.4 g/dL (3.4-5.0); ALKALINE PHOSPHATASE 60 Units/L (46-116); ASPARTATE AMINO TRANSFERASE 22 Units/L (15-37); BLOOD UREA NITROGEN 31 mg/dL (7-18); CALCIUM 11.4 mg/dL (8.5-10.1); CARBON DIOXIDE 39.6 mmol/L (21-32); CHLORIDE 102 mmol/L (98-107); CREATININE 1.84 mg/dL (0.55-1.02); GLUCOSE 74 mg/dL (65-99); SODIUM 143 mmol/L (136-145); TOTAL PROTEIN 6.5 g/dL (6.4-8.2); eGFR BLACK RACES 33 (>60); eGFR NON BLACK RACES 28 (>60)
[2016-12-21 05:21] LABS: COR CA(FOR HYPOALB) 12.7 mg/dL (8.5-10.1)
[2016-12-21 05:53] LABS: BASOPHILS % (AUTO) 0.6 % (0.2-1.0); EOSINOPHILS # (AUTO) 0.2 x10^3/uL (0.0-0.2); EOSINOPHILS % (AUTO) 2.9 % (0.9-2.9); HEMATOCRIT 32.7 % (36.0-47.0); HEMOGLOBIN 11.3 g/dL (12.0-16.0); LYMPHOCYTES # (AUTO) 1.7 X10^3/uL (1.3-2.9); LYMPHOCYTES % (AUTO) 28.6 % (21.0-51.0); MEAN CORPUSCULAR HEMOGLOBIN 32.4 pg (27.0-34.0); MEAN CORPUSCULAR HGB CONC 34.5 g/dL (33.0-35.0); MEAN PLATELET VOLUME 9.4 fL (7.4-11.0); MONOCYTES # (AUTO) 0.6 x10^3/uL (0.3-0.8); MONOCYTES % (AUTO) 10.2 % (0.0-13.0); NEUTROPHILS # (AUTO) 3.3 x10^3/uL (2.2-4.8); NEUTROPHILS % (AUTO) 57.7 % (42.0-75.0); PLATELET COUNT 171 X10^3/uL (150.0-450.0); RED BLOOD COUNT 3.48 X10^6/uL (3.5-5.4); RED CELL DISTRIBUTION WIDTH 13.2 % (11.6-16.5); WHITE BLOOD COUNT 5.8 X10^3/uL (3.6-10.0)
[2016-12-21] MEDS: FERROUS SULFATE PO SCH ×3 (06:16→22:15)
[2016-12-21] MEDS: SYNTHROID 75 mcg TAB PO SCH (06:16)
[2016-12-21] MEDS ORDERED: ROBITUSSIN DM PO PRN (08:06)
[2016-12-21] MEDS: ROCALTROL PO SCH (08:22)
[2016-12-21] MEDS: COREG TAB 6.25 MG PO SCH ×2 (08:23→22:14)
[2016-12-21] MEDS: ASPIRIN EC 81 MG PO SCH (08:23)
[2016-12-21] MEDS: ZAROXOYLN PO SCH (08:23)
[2016-12-21] MEDS: LASIX PO SCH ×2 (08:24→22:14)
[2016-12-21] MEDS: PLAVIX PO SCH (08:24)
[2016-12-21] MEDS: K-DUR TAB 20 MEQ PO SCH ×2 (08:24→22:14)
[2016-12-21] MEDS: TAB-A-VITE PO SCH (08:26)
[2016-12-21] MEDS: COMBIGAN EYE DROPS EACHEYE SCH ×2 (08:26→22:16)
[2016-12-21] MEDS: CIPRO IV 200 MG PREMIX* 200 MG/100 ML BAG IV SCH ×2 (10:36→22:15)
--- NOTE | 2016-12-21 13:31 | PCM.PROG ---
Progress Note - Progress Note for Day of Date: 12/21/16 - Subjective Subjective: DIARRHEA, COUGH, WHEEZING. 86 WF ADMITTEDON 12/19 WITH DEHYDRATION, WEAKNESS. CASE MANAGEMENT CONSULTED FOR LONG TERM PLACEMENT FOR PT/REHAB THERAPY - Past Medical Family Social History Past Med/Fam/Surg Hx: No changes since H&P Allergies: Allergies MS Codeine [Codeine] Allergy (Verified 11/29/16 11:57) MS Dextromethorphan [From Robitussin-DM] Allergy (Verified 11/29/16 11:57) MS Ethanol [From Robitussin] Allergy (Verified 11/29/16 11:57) MS Guaifenesin [From Robitussin] Allergy (Verified 11/29/16 11:57) - Review of Systems ROS: No change since H&P - Vital Signs and I&O's Vital Signs: Temperature 97.2 F Pulse Rate [Right Radial] 65 Pulse Rate 59 Respiratory Rate 20 Blood Pressure [Left Arm] 160/74 O2 Sat by Pulse Oximetry 95 Intake and Output: Intake & Output 12/19/16 12/20/16 12/21/16 12/22/16 11:59 11:59 11:59 11:59 Intake Total 460 1731 Output Total 300 Balance 160 1731 - Physical Exam Oriented: Normal, Other (VERY HARD) Eyes: Normal Ear: Normal Nose: Normal Throat: Normal Respiratory: Wheezes, Rhonchi Cardiovascular: Normal : Normal Auscultation: Bowel Sounds: Normal Palpation: Normal Tenderness: Normal Skin: Normal Musculoskeletal: Back:Thoracic, Back:Lumbar, Motor Deficit (LOWER EXTREMITY MUSCLE WEAKNESS) Psychiatric: Anxiety Affect: Anxious Speech Pattern: Clear, Appropriate - Laboratory and Diagnostics Result Diagrams: 12/21/16 04:05 12/21/16 04:05 Labs: Laboratory WBC 5.8 X10^3/uL (3.6-10.0) 12/21/16 04:05 RBC 3.48 X10^6/uL (3.5-5.4) L 12/21/16 04:05 Hgb 11.3 g/dL (12.0-16.0) L 12/21/16 04:05 Hct 32.7 % (36.0-47.0) L 12/21/16 04:05 MCV 94.0 fL (80.0-100.0) 12/21/16 04:05 MCH 32.4 pg (27.0-34.0) 12/21/16 04:05 MCHC 34.5 g/dL (33.0-35.0) 12/21/16 04:05 RDW 13.2 % (11.6-16.5) 12/21/16 04:05 Plt Count 171 X10^3/uL (150.0-450.0) 12/21/16 04:05 MPV 9.4 fL (7.4-11.0) 12/21/16 04:05 Neut % 57.7 % (42.0-75.0) 12/21/16 04:05 Lymph % 28.6 % (21.0-51.0) 12/21/16 04:05 [place] % 10.2 % (0.0-13.0) 12/21/16 04:05 Eos % 2.9 % (0.9-2.9) 12/21/16 04:05 Baso % 0.6 % (0.2-1.0) 12/21/16 04:05 Neut # 3.3 x10^3/uL (2.2-4.8) 12/21/16 04:05 Lymph # 1.7 X10^3/uL (1.3-2.9) 12/21/16 04:05 [place] # 0.6 x10^3/uL (0.3-0.8) 12/21/16 04:05 Eos # 0.2 x10^3/uL (0.0-0.2) 12/21/16 04:05 Baso # 0.0 X10^3/uL (0.0-0.1) 12/21/16 04:05 Absolute Nucleated RBC 0.3 /100WBC 12/21/16 04:05 INR Target Range - 12/20/16 04:35 INR 1.33 (0.8-1.3) H 12/20/16 04:35 PTT 24.3 SECONDS (22.9-36.5) 12/20/16 04:35 PTT Comment - 12/20/16 04:35 Sodium 143 mmol/L (136-145) 12/21/16 04:05 Corrected Sodium TNP 12/21/16 04:05 Potassium 3.1 mmol/L (3.5-5.1) L 12/21/16 04:05 Chloride 102 mmol/L (98-107) 12/21/16 04:05 Carbon Dioxide 39.6 mmol/L (21-32) H 12/21/16 04:05 BUN 31 mg/dL (7-18) H 12/21/16 04:05 Creatinine 1.84 mg/dL (0.55-1.02) H 12/21/16 04:05 Est GFR (MDRD) Af Amer 33 (>60) L 12/21/16 04:05 Est GFR (MDRD) Non-Af 28 (>60) L 12/21/16 04:05 Glucose 74 mg/dL (65-99) 12/21/16 04:05 Calcium 11.4 mg/dL (8.5-10.1) H 12/21/16 04:05 Corrected Calcium 12.7 mg/dL (8.5-10.1) H 12/21/16 04:05 Magnesium 1.8 mg/dL (1.7-2.9) 12/20/16 04:35 Total Bilirubin 0.40 mg/dL (0.2-1.0) 12/21/16 04:05 AST 22 Units/L (15-37) 12/21/16 04:05 ALT 19 Units/L (12-78) 12/21/16 04:05 Alkaline Phosphatase 60 Units/L (46-116) 12/21/16 04:05 Creatine Kinase 16 Units/L (26-192) L 12/20/16 04:35 CK-MB (CK-2) 0.4 ng/mL (0-4.0) 12/20/16 04:35 CK/CKMB % Calc 2.5 % (<4) 12/20/16 04:35 Troponin I 0.04 ng/mL (0-1.5) 12/20/16 04:35 B-Natriuretic Peptide 531 pg/mL (0-79) H* 12/19/16 16:20 Total Protein 6.5 g/dL (6.4-8.2) 12/21/16 04:05 Albumin 2.4 g/dL (3.4-5.0) L 12/21/16 04:05 Globulin 4.1 g/dL (2.5-4.5) 12/21/16 04:05 Albumin/Globulin Ratio 0.6 Ratio (1.1-2.1) L 12/21/16 04:05 Specimen Type Clean catch urine 12/19/16 16:37 Urine Color Yellow (YELLOW) 12/19/16 16:37 Urine Appearance Clear (CLEAR) 12/19/16 16:37 Urine pH 7.0 (5.0 - 8.0) 12/19/16 16:37 Ur Specific [place] 1.005 (1.000-1.030) 12/19/16 16:37 Urine Protein Negative (NEGATIVE) 12/19/16 16:37 Urine Glucose (UA) Negative (NEGATIVE) 12/19/16 16:37 Urine Ketones Negative (NEGATIVE) 12/19/16 16:37 Urine Occult Blood Negative (NEGATIVE) 12/19/16 16:37 Urine Nitrite Negative (NEGATIVE) 12/19/16 16:37 Urine Bilirubin Negative (NEGATIVE) 12/19/16 16:37 Urine Urobilinogen Normal (NORMAL) 12/19/16 16:37 Ur Leukocyte Esterase 1+ (NEGATIVE) 12/19/16 16:37 Urine RBC 0-2 /HPF (NEGATIVE) 12/19/16 16:37 Urine WBC 0-2 /HPF (NEGATIVE) 12/19/16 16:37 Ur Squamous Epith Cells Rare /HPF (NEGATIVE) 12/19/16 16:37 Urine Bacteria Trace /HPF (NEGATIVE) 12/19/16 16:37 Ur Culture Indicated? No/not indicated 12/19/16 16:37 - Plan (1) Weakness Status: Acute Plan: PT, CORRECT DEHYDRATION, REPEAT AM LABS. BP AND LIPID CONTROL. SUPPORTIVE CARE (2) Dehydration Status: Acute Plan: GENTLY IV HDYRATION, REPEAT AM LABS. STOOL STUDIES, PT CO DIARRHEA (3) CHF (congestive heart failure) Status: Acute Qualifiers: Congestive heart failure type: combined Congestive heart failure chronicity : acute on chronic Qualified Code(s): I50.43 - Acute on chronic combined systolic (congestive) and diastolic (congestive) heart failure (4) CAD (coronary artery disease) Status: Chronic Qualifiers: Coronary Disease-Associated Artery/Lesion type: C Solomon vs. transplanted heart: N Associated angina: A (5) Diabetes mellitus, type II Status: Chronic Qualifiers: Diabetes mellitus complication status: D Diabetes mellitus complication detail: D Diabetic retinopathy severity: D Proliferative retinopathy type: P Diabetes mellitus macular edema: D Diabetes mellitus rat exterminator insulin use : D Laterality: L Chronic kidney disease stage: C (6) HTN (hypertension) Status: Chronic Qualifiers: Hypertension type: H (7) History of macular degeneration Status: Chronic (8) Hyperlipidemia Status: Chronic Qualifiers: Hyperlipidemia type: H (9) Hypothyroidism Status: Chronic Qualifiers: Hypothyroidism type: H
[2016-12-21 21:48] LABS: STOOL FOR WBC Rare
[2016-12-21] MEDS: PRAVACHOL PO SCH (22:14)
[2016-12-21] MEDS: SINGULAIR TAB 10 MG PO SCH (22:14)
[2016-12-21] MEDS: COLACE CAP 100 MG PO SCH (22:14)
[2016-12-21] MEDS: SNACK - Diabetic Appropriate PO SCH (22:15)
[2016-12-21] MEDS: HumuLIN R SUBCUT PRN (22:16)
[2016-12-21] MEDS: NS 1000 ML 1,000 ML with POTASSIUM CHLORIDE INJ 10 MEQ VIAL 10 MEQ IV SCH ×4 (22:27→23:49)
[2016-12-22] MEDS: DUONEB 0.5 MG/3 MG NEB SCH ×3 (00:40→11:29)
[2016-12-22] MEDS: FLAGYL IV PREMIX 500 MG BAG 500 MG/100 ML BAG IV SCH ×2 (02:26→09:04)
[2016-12-22 04:41] VITALS: BP 116/56
[2016-12-22 05:03] LABS: ALBUMIN 2.2 g/dL (3.4-5.0); CALCIUM 10.8 mg/dL (8.5-10.1); CARBON DIOXIDE 36.7 mmol/L (21-32); COR CA(FOR HYPOALB) 12.2 mg/dL (8.5-10.1); CREATININE 2.17 mg/dL (0.55-1.02); TOTAL PROTEIN 5.8 g/dL (6.4-8.2)
[2016-12-22] MEDS: FERROUS SULFATE PO SCH (05:40)
[2016-12-22 05:52] LABS: BASOPHILS % (AUTO) 0.8 % (0.2-1.0); EOSINOPHILS # (AUTO) 0.2 x10^3/uL (0.0-0.2); EOSINOPHILS % (AUTO) 3.5 % (0.9-2.9); HEMATOCRIT 30.8 % (36.0-47.0); HEMOGLOBIN 10.4 g/dL (12.0-16.0); LYMPHOCYTES # (AUTO) 1.5 X10^3/uL (1.3-2.9); LYMPHOCYTES % (AUTO) 29.4 % (21.0-51.0); MEAN CORPUSCULAR HEMOGLOBIN 32.4 pg (27.0-34.0); MEAN CORPUSCULAR HGB CONC 33.9 g/dL (33.0-35.0); MEAN CORPUSCULAR VOLUME 95.4 fL (80.0-100.0); MEAN PLATELET VOLUME 9.5 fL (7.4-11.0); MONOCYTES # (AUTO) 0.6 x10^3/uL (0.3-0.8); MONOCYTES % (AUTO) 11.2 % (0.0-13.0); NEUTROPHILS # (AUTO) 2.8 x10^3/uL (2.2-4.8); NEUTROPHILS % (AUTO) 55.1 % (42.0-75.0); PLATELET COUNT 150 X10^3/uL (150.0-450.0); RED BLOOD COUNT 3.23 X10^6/uL (3.5-5.4); RED CELL DISTRIBUTION WIDTH 13.7 % (11.6-16.5); WHITE BLOOD COUNT 5.1 X10^3/uL (3.6-10.0)
--- NOTE | 2016-12-22 06:03 | RAD ---
HISTORY: Congestive heart failure Study: Chest one view Comparison: December 19, 2016 Technique: AP portable Findings: There is a pacemaker present on the left. The heart is enlarged. No congestive heart failure is note d. No acute alveolar infiltrates or pleural effusions are identified. The bony thorax is unremarkabl e. IMPRESSION: Cardiomegaly without congestive heart failure Lungs clear Reported By:
[2016-12-22] MEDS: SYNTHROID 75 mcg TAB PO SCH (06:19)
[2016-12-22] MEDS ORDERED: PEPCID 20 MG IV PREMIX* 20 MG/50 ML BAG IV PRN (07:55)
[2016-12-22] MEDS: MILK OF MAGNESIA PO SCH (09:04)
[2016-12-22] MEDS: ASPIRIN EC 81 MG PO SCH (09:04)
[2016-12-22] MEDS: POTASSIUM CHLORIDE LIQ 20 MEQ UDC PO PRN (09:04)
[2016-12-22] MEDS: ZAROXOYLN PO SCH (09:05)
[2016-12-22] MEDS: TAB-A-VITE PO SCH (09:05)
[2016-12-22] MEDS: ROCALTROL PO SCH (09:05)
[2016-12-22] MEDS: K-DUR TAB 20 MEQ PO SCH (09:05)
[2016-12-22] MEDS: COREG TAB 6.25 MG PO SCH (09:06)
[2016-12-22] MEDS: COMBIGAN EYE DROPS EACHEYE SCH (09:06)
[2016-12-22] MEDS: PLAVIX PO SCH (09:11)
[2016-12-22] MEDS: CIPRO IV 200 MG PREMIX* 200 MG/100 ML BAG IV SCH (11:16)
== END 2016-12-22 14:10 | DRG 640 ==
LOC: ER 15:39 → MED/SURG 18:35 → OBSVTOIN 12-21 08:30
PROVIDERS: ADMIT Internal Medicine; ATTEND Internal Medicine
DX: E86.0 Dehydration (principal); I95.89 Other hypotension; R94.31 Abnormal electrocardiogram [ECG] [EKG]; K57.92 Diverticulitis of intestine, part unspecified, without perforation or abscess without bleeding; R10.84 Generalized abdominal pain; R06.02 Shortness of breath; I25.10 Atherosclerotic heart disease of native coronary artery without angina pectoris; I10 Essential (primary) hypertension; E11.65 Type 2 diabetes mellitus with hyperglycemia; R53.1 Weakness; I50.43 Acute on chronic combined systolic (congestive) and diastolic (congestive) heart failure; E78.2 Mixed hyperlipidemia; E03.8 Other specified hypothyroidism; E87.6 Hypokalemia; K59.1 Functional diarrhea; D64.89 Other specified anemias; R79.1 Abnormal coagulation profile; R26.89 Other abnormalities of gait and mobility
CPT/HCPCS: 36415; 71010; 74176; 80053; 81001; 82270; 82550; 82553; 83735; 83880; 84132; 84484; 85025; 85610; 85730; 87045; 87205; 87338; 87493; 87899; 93005; 93010; 94640; 94760; 99284; A4222; S0030; G0378; J0744; J1815; J3480; J7620

== ENCOUNTER 2017-02-12 14:38 | Inpatient (IN) | payer OTHER ==
[2017-02-12 16:22] LABS: BASOPHILS # (AUTO) 0.1 X10^3/uL (0.0-0.1); BASOPHILS % (AUTO) 0.9 % (0.2-1.0); EOSINOPHILS % (AUTO) 0.5 % (0.9-2.9); HEMATOCRIT 23.3 % (36.0-47.0); HEMOGLOBIN 7.7 g/dL (12.0-16.0); LYMPHOCYTES % (AUTO) 23.2 % (21.0-51.0); MEAN CORPUSCULAR HEMOGLOBIN 32.5 pg (27.0-34.0); MEAN CORPUSCULAR HGB CONC 33.2 g/dL (33.0-35.0); MONOCYTES # (AUTO) 0.4 x10^3/uL (0.3-0.8); MONOCYTES % (AUTO) 5.2 % (0.0-13.0); NEUTROPHILS % (AUTO) 70.2 % (42.0-75.0); PLATELET COUNT 169 X10^3/uL (150.0-450.0); RED BLOOD COUNT 2.38 X10^6/uL (3.5-5.4); RED CELL DISTRIBUTION WIDTH 18.1 % (11.6-16.5); WHITE BLOOD COUNT 8.5 X10^3/uL (3.6-10.0)
[2017-02-12 16:33] LABS: ALANINE AMINOTRANSFERASE 15 Units/L (12-78); ALBUMIN 1.6 g/dL (3.4-5.0); ALKALINE PHOSPHATASE 64 Units/L (46-116); ASPARTATE AMINO TRANSFERASE 19 Units/L (15-37); BLOOD UREA NITROGEN 20 mg/dL (7-18); CALCIUM 10.6 mg/dL (8.5-10.1); CARBON DIOXIDE 21.4 mmol/L (21-32); COR CA(FOR HYPOALB) 12.5 mg/dL (8.5-10.1); CREATININE 1.96 mg/dL (0.55-1.02); GLUCOSE 103 mg/dL (65-99); SODIUM 149 mmol/L (136-145); TOTAL PROTEIN 6.2 g/dL (6.4-8.2); eGFR BLACK RACES 31 (>60); eGFR NON BLACK RACES 26 (>60)
[2017-02-12 16:46] LABS: CHLORIDE 123 mmol/L (98-107)
[2017-02-12 16:49] LABS: ANISOCYTOSIS 1+; HYPOCHROMASIA SLIGHT; PLATELET MORPHOLOGY COMMENT NORMAL (NORMAL)
[2017-02-12 17:21] VITALS: BMI 23.9
--- NOTE | 2017-02-12 17:45 | RAD ---
HISTORY: Failure to thrive Study: Portable chest Comparison: December 22, 2016 Findings: The trachea is midline. The cardiac silhouette is mildly enlarged with intact pacemaker wire leads via the left subclavian vein.. There is limited inspiration of lungs clear of active disease 2. The re is no pneumothorax or mass or effusion.. The bony thorax is unremarkable. IMPRESSION: 1. Mild cardiomegaly, no definite acute disease. Reported By:
[2017-02-12] MEDS: ROCEPHIN VIAL 1 GM 1 GM in NS 50 ML IV + SPIKE MINIBAG* 50 ML IV SCH (17:55)
[2017-02-12] MEDS: NS 1000 ML 1,000 ML IV SCH (17:55)
[2017-02-12 17:56] LABS: FREE T4 (FREE THYROXINE) 0.7 ng/dL (0.76-1.46); MAGNESIUM 1.8 mg/dL (1.7-2.9); TSH (3RD GENERATION) 57.416 uIU/mL (0.358-3.74)
[2017-02-12 18:11] LABS: BILIRUBIN,URINE NEGATIVE (NEGATIVE); BLOOD/HEMOGLOBIN,URINE NEGATIVE (NEGATIVE); GLUCOSE, URINE NEGATIVE (NEGATIVE); KETONES,URINE NEGATIVE (NEGATIVE); LEUKOCYTE ESTERASE ,URINE 1+ (NEGATIVE); NITRITES,URINE NEGATIVE (NEGATIVE); PROTEIN,URINE 2+ (NEGATIVE); UROBILINOGEN,URINE NORMAL (NORMAL)
[2017-02-12 18:19] LABS: APPEARANCE,URINE SLIGHTLY HAZY (CLEAR); BACTERIA,URINE TRACE /HPF (NEGATIVE); COLOR,URINE YELLOW (YELLOW); RBC,URINE NEGATIVE /HPF (NEGATIVE); SQUAMOUS EPITHELIAL CELL,UR RARE /HPF (NEGATIVE)
[2017-02-13 06:56] LABS: BASOPHILS % (AUTO) 0.5 % (0.2-1.0); EOSINOPHILS # (AUTO) 0.1 x10^3/uL (0.0-0.2); EOSINOPHILS % (AUTO) 0.7 % (0.9-2.9); HEMATOCRIT 35.7 % (36.0-47.0); LYMPHOCYTES # (AUTO) 1.6 X10^3/uL (1.3-2.9); MEAN CORPUSCULAR HEMOGLOBIN 30.3 pg (27.0-34.0); MEAN CORPUSCULAR HGB CONC 30.8 g/dL (33.0-35.0); MEAN CORPUSCULAR VOLUME 98.3 fL (80.0-100.0); MEAN PLATELET VOLUME 9.5 fL (7.4-11.0); MONOCYTES # (AUTO) 0.3 x10^3/uL (0.3-0.8); MONOCYTES % (AUTO) 4.5 % (0.0-13.0); NEUTROPHILS # (AUTO) 5.4 x10^3/uL (2.2-4.8); NEUTROPHILS % (AUTO) 72.3 % (42.0-75.0); PLATELET COUNT 120 X10^3/uL (150.0-450.0); RED BLOOD COUNT 3.63 X10^6/uL (3.5-5.4); RED CELL DISTRIBUTION WIDTH 18.5 % (11.6-16.5); WHITE BLOOD COUNT 7.5 X10^3/uL (3.6-10.0)
[2017-02-13 07:27] LABS: ALANINE AMINOTRANSFERASE 15 Units/L (12-78); ALBUMIN 1.7 g/dL (3.4-5.0); ALKALINE PHOSPHATASE 59 Units/L (46-116); ASPARTATE AMINO TRANSFERASE 20 Units/L (15-37); BLOOD UREA NITROGEN 18 mg/dL (7-18); CALCIUM 10.3 mg/dL (8.5-10.1); CARBON DIOXIDE 22.6 mmol/L (21-32); COR CA(FOR HYPOALB) 12.1 mg/dL (8.5-10.1); CREATININE 1.87 mg/dL (0.55-1.02); GLUCOSE 84 mg/dL (65-99); TOTAL PROTEIN 6.1 g/dL (6.4-8.2); eGFR BLACK RACES 33 (>60); eGFR NON BLACK RACES 27 (>60)
[2017-02-13 07:31] LABS: HYPOCHROMASIA SLIGHT; MICROCYTOSIS SLIGHT; PLATELET MORPHOLOGY COMMENT NORMAL (NORMAL); POIKILOCYTOSIS SLIGHT
[2017-02-13 07:43] LABS: CHLORIDE 124 mmol/L (98-107); SODIUM 153 mmol/L (136-145)
[2017-02-13] MEDS: ROCEPHIN VIAL 1 GM 1 GM in NS 50 ML IV + SPIKE MINIBAG* 50 ML IV SCH (08:39)
[2017-02-13] MEDS ORDERED: ZOFRAN TAB 4 MG PO PRN (11:05)
[2017-02-13] MEDS ORDERED: TYLENOL 500 MG TAB EXTRA STRENGTH PO PRN (11:05)
[2017-02-13] MEDS ORDERED: LEVALBUTEROL INH PRN (11:05)
[2017-02-13] MEDS ORDERED: PATIENT'S HOME MEDICATION (Aspirin [Aspirin] 1 TAB) PO SCH (11:15)
[2017-02-13] MEDS ORDERED: IPRATROPIUM BROMIDE NEB SCH (11:15)
[2017-02-13] MEDS ORDERED: CALCITRIOL PO SCH (11:15)
[2017-02-13] MEDS ORDERED: PATIENT'S HOME MEDICATION (Potassium Chloride [Potassium Chloride] 1 TAB) PO SCH (11:15)
[2017-02-13] MEDS ORDERED: PATIENT'S HOME MEDICATION (Multiple Vitamins W/ Minerals [Centrum Silver] 1 TAB) PO SCH (11:15)
[2017-02-13] MEDS ORDERED: SYNTHROID 88 mcg TAB PO SCH (12:00)
[2017-02-13] MEDS ORDERED: XOPENEX 1.25 MG/3 ML NEBULE NEB PRN (12:04)
[2017-02-13] MEDS ORDERED: LEXAPRO ONE (12:12)
[2017-02-13] MEDS: NS 1000 ML 1,000 ML IV SCH (12:13)
[2017-02-13] MEDS: PLAVIX PO SCH (12:14)
[2017-02-13] MEDS: COREG TAB 6.25 MG PO SCH ×2 (12:14→21:25)
[2017-02-13] MEDS: LEXAPRO PO SCH (12:14)
[2017-02-13] MEDS: ASPIRIN EC 81 MG PO SCH (12:14)
[2017-02-13] MEDS: SYNTHROID 75 mcg TAB PO SCH (12:15)
[2017-02-13] MEDS ORDERED: Atrovent NEB TX 0.02% NEB SCH (13:00)
[2017-02-13] MEDS: COMBIGAN EYE DROPS EACHEYE SCH ×3 (13:12→21:34)
[2017-02-13] MEDS: FERROUS SULFATE PO SCH ×2 (13:26→21:25)
[2017-02-13] MEDS: K-DUR TAB 20 MEQ PO SCH (21:24)
[2017-02-13] MEDS: SINGULAIR TAB 10 MG PO SCH (21:25)
[2017-02-13] MEDS: PRAVACHOL PO SCH (21:25)
[2017-02-14] MEDS: SYNTHROID 75 mcg TAB PO SCH (06:07)
[2017-02-14] MEDS: FERROUS SULFATE PO SCH ×3 (06:07→21:22)
[2017-02-14 06:14] LABS: BASOPHILS # (AUTO) 0.1 X10^3/uL (0.0-0.1); BASOPHILS % (AUTO) 0.9 % (0.2-1.0); EOSINOPHILS # (AUTO) 0.1 x10^3/uL (0.0-0.2); EOSINOPHILS % (AUTO) 1.1 % (0.9-2.9); HEMATOCRIT 25.5 % (36.0-47.0); HEMOGLOBIN 8.1 g/dL (12.0-16.0); LYMPHOCYTES # (AUTO) 1.3 X10^3/uL (1.3-2.9); LYMPHOCYTES % (AUTO) 16.3 % (21.0-51.0); MEAN CORPUSCULAR HEMOGLOBIN 31.8 pg (27.0-34.0); MEAN CORPUSCULAR HGB CONC 31.8 g/dL (33.0-35.0); MEAN PLATELET VOLUME 9.8 fL (7.4-11.0); MONOCYTES # (AUTO) 0.3 x10^3/uL (0.3-0.8); MONOCYTES % (AUTO) 4.5 % (0.0-13.0); NEUTROPHILS # (AUTO) 5.9 x10^3/uL (2.2-4.8); NEUTROPHILS % (AUTO) 77.2 % (42.0-75.0); PLATELET COUNT 108 X10^3/uL (150.0-450.0); RED BLOOD COUNT 2.55 X10^6/uL (3.5-5.4); WHITE BLOOD COUNT 7.7 X10^3/uL (3.6-10.0)
[2017-02-14 08:05] LABS: ALANINE AMINOTRANSFERASE 16 Units/L (12-78); ALBUMIN 1.6 g/dL (3.4-5.0); ALKALINE PHOSPHATASE 55 Units/L (46-116); ASPARTATE AMINO TRANSFERASE 26 Units/L (15-37); BLOOD UREA NITROGEN 18 mg/dL (7-18); CALCIUM 10.3 mg/dL (8.5-10.1); CARBON DIOXIDE 21.5 mmol/L (21-32); COR CA(FOR HYPOALB) 12.2 mg/dL (8.5-10.1); CREATININE 1.85 mg/dL (0.55-1.02); GLUCOSE 99 mg/dL (65-99); TOTAL PROTEIN 5.7 g/dL (6.4-8.2); eGFR BLACK RACES 33 (>60); eGFR NON BLACK RACES 27 (>60)
[2017-02-14 08:21] LABS: CHLORIDE 124 mmol/L (98-107); SODIUM 153 mmol/L (136-145)
[2017-02-14] MEDS ORDERED: LEXAPRO ONE (08:48)
[2017-02-14] MEDS ORDERED: NS 1/2 1000 ML IV 1,000 ML IV ONE ×2 (08:54→16:43)
[2017-02-14] MEDS: NS 1/2 1000 ML IV 1,000 ML IV SCH ×2 (08:56→16:42)
[2017-02-14] MEDS: ROCEPHIN VIAL 1 GM 1 GM in NS 50 ML IV + SPIKE MINIBAG* 50 ML IV SCH (08:57)
[2017-02-14] MEDS: K-DUR TAB 20 MEQ PO SCH ×2 (08:58→21:22)
[2017-02-14] MEDS: COREG TAB 6.25 MG PO SCH ×2 (08:58→21:22)
[2017-02-14] MEDS: PLAVIX PO SCH (08:58)
[2017-02-14] MEDS: COMBIGAN EYE DROPS EACHEYE SCH ×2 (08:59→21:23)
[2017-02-14] MEDS: TAB-A-VITE PO SCH (08:59)
[2017-02-14] MEDS: LEXAPRO PO SCH (08:59)
[2017-02-14] MEDS: ASPIRIN EC 81 MG PO SCH (08:59)
[2017-02-14] MEDS: ROCALTROL PO SCH (08:59)
[2017-02-14] MEDS ORDERED: NS 1000 ML 1,000 ML IV SCH (09:30)
[2017-02-14] MEDS: SINGULAIR TAB 10 MG PO SCH (21:22)
[2017-02-14] MEDS: PRAVACHOL PO SCH (21:22)
[2017-02-14] MEDS: HumuLIN R SC PRN (21:28)
[2017-02-15] MEDS ORDERED: NS 1/2 1000 ML IV 1,000 ML IV ONE ×2 (00:32→09:53)
[2017-02-15] MEDS: NS 1/2 1000 ML IV 1,000 ML IV SCH ×3 (01:31→16:59)
[2017-02-15 04:11] LABS: CRYPTOSPORIDIUM PARVUM ANTIGEN NEGATIVE (NEGATIVE); GIARDIA LAMBLIA ANTIGEN NEGATIVE (NEGATIVE)
[2017-02-15 05:51] LABS: BASOPHILS % (AUTO) 0.4 % (0.2-1.0); EOSINOPHILS # (AUTO) 0.1 x10^3/uL (0.0-0.2); EOSINOPHILS % (AUTO) 1.6 % (0.9-2.9); HEMATOCRIT 22.5 % (36.0-47.0); HEMOGLOBIN 7.3 g/dL (12.0-16.0); LYMPHOCYTES # (AUTO) 1.3 X10^3/uL (1.3-2.9); LYMPHOCYTES % (AUTO) 18.2 % (21.0-51.0); MEAN CORPUSCULAR HEMOGLOBIN 32.6 pg (27.0-34.0); MEAN CORPUSCULAR HGB CONC 32.3 g/dL (33.0-35.0); MEAN CORPUSCULAR VOLUME 100.9 fL (80.0-100.0); MEAN PLATELET VOLUME 9.3 fL (7.4-11.0); MONOCYTES # (AUTO) 0.4 x10^3/uL (0.3-0.8); NEUTROPHILS # (AUTO) 5.5 x10^3/uL (2.2-4.8); NEUTROPHILS % (AUTO) 74.8 % (42.0-75.0); PLATELET COUNT 100 X10^3/uL (150.0-450.0); RED BLOOD COUNT 2.23 X10^6/uL (3.5-5.4); RED CELL DISTRIBUTION WIDTH 19.1 % (11.6-16.5); WHITE BLOOD COUNT 7.4 X10^3/uL (3.6-10.0)
[2017-02-15] MEDS: FERROUS SULFATE PO SCH ×3 (05:55→21:34)
[2017-02-15 06:01] LABS: ALANINE AMINOTRANSFERASE 15 Units/L (12-78); ALBUMIN 1.5 g/dL (3.4-5.0); ALKALINE PHOSPHATASE 59 Units/L (46-116); ASPARTATE AMINO TRANSFERASE 21 Units/L (15-37); BLOOD UREA NITROGEN 17 mg/dL (7-18); CALCIUM 10.5 mg/dL (8.5-10.1); CARBON DIOXIDE 22.2 mmol/L (21-32); COR CA(FOR HYPOALB) 12.5 mg/dL (8.5-10.1); CREATININE 1.82 mg/dL (0.55-1.02); GLUCOSE 106 mg/dL (65-99); SODIUM 147 mmol/L (136-145); TOTAL PROTEIN 5.4 g/dL (6.4-8.2); eGFR BLACK RACES 34 (>60); eGFR NON BLACK RACES 28 (>60)
[2017-02-15 06:02] LABS: CHLORIDE 122 mmol/L (98-107)
[2017-02-15] MEDS: SYNTHROID 75 mcg TAB PO SCH (06:17)
[2017-02-15 06:36] LABS: HYPOCHROMASIA SLIGHT; MICROCYTOSIS SLIGHT; PLATELET MORPHOLOGY COMMENT NORMAL (NORMAL)
[2017-02-15] MEDS ORDERED: LEXAPRO ONE (08:27)
[2017-02-15] MEDS: ROCEPHIN VIAL 1 GM 1 GM in NS 50 ML IV + SPIKE MINIBAG* 50 ML IV SCH (08:32)
[2017-02-15] MEDS: K-DUR TAB 20 MEQ PO SCH ×2 (08:32→20:17)
[2017-02-15] MEDS: PLAVIX PO SCH (08:34)
[2017-02-15] MEDS: ASPIRIN EC 81 MG PO SCH (08:34)
[2017-02-15] MEDS: ROCALTROL PO SCH (08:34)
[2017-02-15] MEDS: COREG TAB 6.25 MG PO SCH ×2 (08:34→20:17)
[2017-02-15] MEDS: LEXAPRO PO SCH (08:34)
[2017-02-15] MEDS: TAB-A-VITE PO SCH (08:35)
--- NOTE | 2017-02-15 08:40 | RAD ---
Chest, one view Indication: Failure to thrive Comparison: February 12, 2017 Findings: There is stable enlargement of the cardiac silhouette with left duel lead pacemaker again noted. There are new patchy opacities within the right lower lobe with associated air bronchograms. Remaining lungs are clear. No significant effusion or pneumothorax is identified. The osseous thorax is unremarkable. Impression: New right lower lobe infiltrate, suspicious for pneumonia. Recommend clinical correlation and contin ued follow up to resolution. Reported By:
[2017-02-15] MEDS: COMBIGAN EYE DROPS EACHEYE SCH ×2 (08:42→20:16)
[2017-02-15] MEDS: LASIX IVP SCH ×2 (09:53→20:16)
[2017-02-15] MEDS: HumuLIN R SC PRN (12:46)
--- NOTE | 2017-02-15 12:57 | DR.H&P ---
H&P - History & Physical for Day of: H&P Date: 02/12/17 - Chief Complaint Chief Complaint: [address] ABEL, LONG-TERM RESIDENT, PT ADMITTED FOR WEAKNESS, SOB, AND ADULT FAILURE TO THRIVE. SEE ADMIT ORDERS - Allergies Allergies/Adverse Reactions: Allergies Allergy/AdvReac Type Severity Reaction Status Date / Time codeine AdvReac Verified 02/12/17 17:32 dextromethorphan AdvReac Verified 02/12/17 17:32 [From Robafen DM Cough-Chest Congest] guaifenesin AdvReac Verified 02/12/17 17:32 ETHANOL AdvReac Uncoded 02/12/17 17:33 - History of Present Illness History of Present Illness: MRS PAIZ HAS PMH OF BLINDNESS, IMPAIRED RENAL FUNCTION, LUNG DISEASE/MASS, CHF, HTN, OA. PT ADMISSION LABS REVEALED HYPERNATREMIA, ANEMIA. PT ADMITTED FOR CARDIAC MONITORING, ELECTROLYTE IMBLANCE FURTHER EVALUATION OF WEAKNESS. - Past Medical History Past Medical History: CHF, Coronary Artery Disease, Diabetes, GERD, Hypertension , Hypothyroidism - Past Surgical History Surgical History: Angioplasty/Stents, Hysterectomy, Other - Family History Family Medical History: Diabetes Mellitus, [place], Coronary Artery Disease - Social History Does patient currently use any type of tobacco product: No Have you used tobacco products in the last 12 months: No Type of Tobacco Use: None Alcohol Use: None Drug Use: None - Medications Home Medications: Acetaminophen [TYLENOL 500 MG TAB EXTRA-STRENGTH *] 1 tab PO Q6HR PRN 02/12/17 [ History Confirmed 02/12/17] Escitalopram Oxalate [LEXAPRO 10 MG TAB *] 1 tab PO DAILY 02/12/17 [History Confirmed 02/12/17] - Review of Systems Constitutional: Weakness Eyes: Conjunctivae Inflammation (CHRONIC LEFT EYE, BLIND IN RIGHT EYE) Respiratory: Shortness of Breath Cardiovascular: Edema Gastrointestinal: Nausea Genitourinary: Frequency Musculoskeletal: Back Pain, Leg Pain Skin: No Symptoms Reported Neurological: Weakness, Other (VERY HARD OF HEARING, NOT CONFUSED) - Physical Exam Vital Signs: Temperature 97 F Pulse Rate [Right Brachial] 64 Pulse Rate 64 Respiratory Rate 16 Blood Pressure [Right Arm] 105/58 Blood Pressure [Left Arm] 102/51 Blood Pressure 116/56 O2 Sat by Pulse Oximetry 100 Oriented: Normal Eyes: Discharge, Other (CHRONIC BLINDNESS RIGHT EYE, CHRONIC CONJUNCTIVITIS) Ear: Normal Nose: Normal Respiratory: Diminished Throughout Cardiovascular: Edema : Normal Auscultation: Bowel Sounds: Normal Palpation: Normal Tenderness: Normal Musculoskeletal: Hip, Back:Lumbar, Motor Deficit (DIFFUSE MUSCLE WEAKNESS) Psychiatric: Depression, Agitation Speech Pattern: Clear - Assessment/Plan (1) Hypotension Qualifiers: Hypotension type: other hypotension type Trimester: T Qualified Code(s): I95.89 - Other hypotension Status: Acute Plan: ADMIT ICU, CARDIAC MONITORING. CXR, BP CONTROL. IV HYDRATION, ORAL HYDRATION, BLOOD AND URINE CULTURES (2) Dehydration Status: Acute (3) Weakness Status: Acute (4) CHF (congestive heart failure) Qualifiers: Congestive heart failure type: combined Congestive heart failure chronicity : acute on chronic Qualified Code(s): I50.43 - Acute on chronic combined systolic (congestive) and diastolic (congestive) heart failure Status: Chronic (5) Diabetes mellitus, type II Qualifiers: Diabetes mellitus complication status: D Diabetes mellitus complication detail: D Diabetic retinopathy severity: D Proliferative retinopathy type: P Diabetes mellitus macular edema: D Diabetes mellitus correction insulin use : D Laterality: L Chronic kidney disease stage: C Status: Chronic (6) HTN (hypertension) Qualifiers: Hypertension type: H Status: Chronic (7) Hilar mass Status: Chronic (8) Hypothyroidism Qualifiers: Hypothyroidism type: H Status: Chronic
--- NOTE | 2017-02-15 13:07 | PCM.PROG ---
Progress Note - Progress Note for Day of Date: 02/15/17 - Subjective Subjective: MODERATE RESP DISTRESS, SPEAKS 2 TO 3 WORDS BETWEEN BREATH. PT STATES "ONLY FEEL SHORT OF BREATH WHEN I TALK". . 86 WF ADMITTED ON 02/12 WITH ELECTROLYTE IMBALANCE HYPOTENSION AND WEAKNESS. HYPERNATREMIA, CURRENTLY ON 1/2 NS, WILL ENCOURAGE PO WATER, LASIX 20 IV THIS AM , WILL REPEAT CBC THIS AFTERNOON TO MONITOR H & H, DISCUSSED POSSIBLE TRANSFUSION WITH PT. PT HAD DIFFUSE UPPER AND LOWER EXTREMITY 3RD SPACE EDEMA THIS AM. - Past Medical Family Social History Past Med/Fam/Surg Hx: No changes since H&P Allergies: Allergies codeine Adverse Reaction (Verified 02/12/17 17:32) dextromethorphan [From Robafen DM Cough-Chest Congest] Adverse Reaction ( Verified 02/12/17 17:32) guaifenesin Adverse Reaction (Verified 02/12/17 17:32) ETHANOL Adverse Reaction (Uncoded 02/12/17 17:33) FROM ROBITUSSIN - Review of Systems ROS: No change since H&P - Vital Signs and I&O's Vital Signs: Temperature 97 F Pulse Rate [Right Brachial] 64 Pulse Rate 64 Respiratory Rate 16 Blood Pressure [Right Arm] 105/58 Blood Pressure [Left Arm] 102/51 Blood Pressure 116/56 O2 Sat by Pulse Oximetry 100 Intake and Output: Intake & Output 02/13/17 02/14/17 02/15/17 02/16/17 11:59 11:59 11:59 11:59 Intake Total 840 1681 3451 Output Total 400 500 500 Balance 440 1181 2951 - Physical Exam Oriented: Normal Eyes: Discharge, Other (CHRONIC BLINDNESS RIGHT EYE, CHRONIC CONJUNCTIVITIS) Ear: Normal Nose: Normal Respiratory: Diminished Cardiovascular: Edema : Normal Auscultation: Bowel Sounds: Normal Tenderness: Normal Skin: Decreased [place], Other (3RD SPACE EDEMA DIFFUSE LIMBS) Musculoskeletal: Hip, Back:Lumbar, Motor Deficit (DIFFUSE MUSCLE WEAKNESS) Psychiatric: Depression, Agitation Speech Pattern: Clear - Laboratory and Diagnostics Result Diagrams: 02/15/17 05:40 02/15/17 05:40 Labs: 02/15/17 03:24 Stool - Final 02/12/17 17:54 Urine,Catheterized Urine Culture - Final 02/12/17 16:10 Blood Blood Culture - Preliminary 02/12/17 16:05 Blood Blood Culture - Preliminary Laboratory WBC 7.4 X10^3/uL (3.6-10.0) 02/15/17 05:40 RBC 2.23 X10^6/uL (3.5-5.4) L 02/15/17 05:40 Hgb 7.3 g/dL (12.0-16.0) L 02/15/17 05:40 Hct 22.5 % (36.0-47.0) L 02/15/17 05:40 MCV 100.9 fL (80.0-100.0) H 02/15/17 05:40 MCH 32.6 pg (27.0-34.0) 02/15/17 05:40 MCHC 32.3 g/dL (33.0-35.0) L 02/15/17 05:40 RDW 19.1 % (11.6-16.5) H 02/15/17 05:40 Plt Count 100 X10^3/uL (150.0-450.0) L 02/15/17 05:40 Plt Count Comment Decreased (ADEQUATE) A 02/15/17 05:40 MPV 9.3 fL (7.4-11.0) 02/15/17 05:40 Neut % 74.8 % (42.0-75.0) 02/15/17 05:40 Lymph % 18.2 % (21.0-51.0) L 02/15/17 05:40 [place] % 5.0 % (0.0-13.0) 02/15/17 05:40 Eos % 1.6 % (0.9-2.9) 02/15/17 05:40 Baso % 0.4 % (0.2-1.0) 02/15/17 05:40 Neut # 5.5 x10^3/uL (2.2-4.8) H 02/15/17 05:40 Lymph # 1.3 X10^3/uL (1.3-2.9) 02/15/17 05:40 [place] # 0.4 x10^3/uL (0.3-0.8) 02/15/17 05:40 Eos # 0.1 x10^3/uL (0.0-0.2) 02/15/17 05:40 Baso # 0.0 X10^3/uL (0.0-0.1) 02/15/17 05:40 Absolute Nucleated RBC 1.8 /100WBC 02/15/17 05:40 Plt Morphology Comment Normal (NORMAL) 02/15/17 05:40 RBC Morphology Abnormal (NORMAL) A 02/15/17 05:40 Hypochromasia Slight A 02/15/17 05:40 Poikilocytosis Slight A 02/13/17 05:40 Basophilic Stippling 1+ A 02/12/17 16:10 Anisocytosis 1+ A 02/12/17 16:10 Microcytosis Slight A 02/15/17 05:40 Sodium 147 mmol/L (136-145) H 02/15/17 05:40 Corrected Sodium TNP 02/15/17 05:40 Potassium 5.0 mmol/L (3.5-5.1) 02/15/17 05:40 Chloride 122 mmol/L (98-107) H* 02/15/17 05:40 Carbon Dioxide 22.2 mmol/L (21-32) 02/15/17 05:40 BUN 17 mg/dL (7-18) 02/15/17 05:40 Creatinine 1.82 mg/dL (0.55-1.02) H 02/15/17 05:40 Est GFR (MDRD) Af Amer 34 (>60) L 02/15/17 05:40 Est GFR (MDRD) Non-Af 28 (>60) L 02/15/17 05:40 Glucose 106 mg/dL (65-99) H 02/15/17 05:40 Calcium 10.5 mg/dL (8.5-10.1) H 02/15/17 05:40 Corrected Calcium 12.5 mg/dL (8.5-10.1) H 02/15/17 05:40 Magnesium 1.8 mg/dL (1.7-2.9) 02/12/17 17:19 Total Bilirubin 0.20 mg/dL (0.2-1.0) 02/15/17 05:40 AST 21 Units/L (15-37) 02/15/17 05:40 ALT 15 Units/L (12-78) 02/15/17 05:40 Alkaline Phosphatase 59 Units/L (46-116) 02/15/17 05:40 Total Protein 5.4 g/dL (6.4-8.2) L 02/15/17 05:40 Albumin 1.5 g/dL (3.4-5.0) L 02/15/17 05:40 Globulin 3.9 g/dL (2.5-4.5) 02/15/17 05:40 Albumin/Globulin Ratio 0.4 Ratio (1.1-2.1) L 02/15/17 05:40 Free T4 0.70 ng/dL (0.76-1.46) L 02/12/17 17:19 TSH 3rd Generation 57.416 uIU/mL (0.358-3.74) H 02/12/17 17:19 Specimen Type Catherized urine 02/12/17 17:54 Urine Color Yellow (YELLOW) 02/12/17 17:54 Urine Appearance Slightly hazy (CLEAR) 02/12/17 17:54 Urine pH 5.0 (5.0 - 8.0) 02/12/17 17:54 Ur Specific [place] 1.025 (1.000-1.030) 02/12/17 17:54 Urine Protein 2+ (NEGATIVE) 02/12/17 17:54 Urine Glucose (UA) Negative (NEGATIVE) 02/12/17 17:54 Urine Ketones Negative (NEGATIVE) 02/12/17 17:54 Urine Occult Blood Negative (NEGATIVE) 02/12/17 17:54 Urine Nitrite Negative (NEGATIVE) 02/12/17 17:54 Urine Bilirubin Negative (NEGATIVE) 02/12/17 17:54 Urine Urobilinogen Normal (NORMAL) 02/12/17 17:54 Ur Leukocyte Esterase 1+ (NEGATIVE) 02/12/17 17:54 Urine RBC Negative /HPF (NEGATIVE) 02/12/17 17:54 Urine WBC Rare /HPF (NEGATIVE) 02/12/17 17:54 Ur Squamous Epith Cells Rare /HPF (NEGATIVE) 02/12/17 17:54 Urine Bacteria Trace /HPF (NEGATIVE) 02/12/17 17:54 Ur Culture Indicated? Yes/culture set up 02/12/17 17:54 Stool Description 5 g black,tarry 02/15/17 03:24 Stl Occult Blood (IFOB) Positive (NEGATIVE) A 02/15/17 03:24 Cryptosporid parvum Ag Negative (NEGATIVE) 02/15/17 03:24 E. histolytica Antigen Negative (NEGATIVE) 02/15/17 03:24 Giardia lamblia Ag Negative (NEGATIVE) 02/15/17 03:24 - Plan (1) Hypotension Status: Acute Qualifiers: Hypotension type: other hypotension type Trimester: T Qualified Code(s): I95.89 - Other hypotension Plan: ICU, CARDIAC MONITORING. STAT CXR THIS AM DUE TO HX CHF, BP CONTROL. IV HYDRATION, ORAL HYDRATION, BLOOD AND URINE CULTURES COLLECTED ON ADMISSION (2) Anemia Status: Acute Qualifiers: Anemia type: A Iron deficiency anemia type: I Vitamin B12 deficiency anemia type: V Folate deficiency anemia type: F Bone marrow failure anemia type: B Hemolytic anemia type: H Other causes of anemia: O Chronic kidney disease stage: C Plan: TYPE AND SCREEN, REPEAT CBC AT 1500 TODAY (3) Dehydration Status: Acute (4) Weakness Status: Acute (5) CHF (congestive heart failure) Status: Chronic Qualifiers: Congestive heart failure type: combined Congestive heart failure chronicity : acute on chronic Qualified Code(s): I50.43 - Acute on chronic combined systolic (congestive) and diastolic (congestive) heart failure Plan: DIFFUSE 3RD SPACE, CXR THIS AM. GENTLY HYDRATION AND LASIX 20 1V DUE TO HX OF HYPOTENSION. WILL GENTLY DIURESE TOLERATED, STRICT I & O'S (6) Diabetes mellitus, type II Status: Chronic Qualifiers: Diabetes mellitus complication status: D Diabetes mellitus complication detail: D Diabetic retinopathy severity: D Proliferative retinopathy type: P Diabetes mellitus macular edema: D Diabetes mellitus penitentiary insulin use : D Laterality: L Chronic kidney disease stage: C Plan: SSI (7) HTN (hypertension) Status: Chronic Qualifiers: Hypertension type: H (8) Hilar mass Status: Chronic (9) Hypothyroidism Status: Chronic Qualifiers: Hypothyroidism type: H Plan: THS FREE T 4 COLLECTED. CONTINUE LEVOTHYROXINE
[2017-02-15 15:58] LABS: BASOPHILS % (AUTO) 0.5 % (0.2-1.0); EOSINOPHILS # (AUTO) 0.1 x10^3/uL (0.0-0.2); EOSINOPHILS % (AUTO) 1.5 % (0.9-2.9); HEMATOCRIT 23.1 % (36.0-47.0); HEMOGLOBIN 7.5 g/dL (12.0-16.0); LYMPHOCYTES # (AUTO) 1.7 X10^3/uL (1.3-2.9); LYMPHOCYTES % (AUTO) 22.4 % (21.0-51.0); MEAN CORPUSCULAR HEMOGLOBIN 32.7 pg (27.0-34.0); MEAN CORPUSCULAR HGB CONC 32.3 g/dL (33.0-35.0); MEAN CORPUSCULAR VOLUME 101.4 fL (80.0-100.0); MEAN PLATELET VOLUME 9.5 fL (7.4-11.0); MONOCYTES # (AUTO) 0.4 x10^3/uL (0.3-0.8); MONOCYTES % (AUTO) 4.7 % (0.0-13.0); NEUTROPHILS # (AUTO) 5.4 x10^3/uL (2.2-4.8); NEUTROPHILS % (AUTO) 70.9 % (42.0-75.0); PLATELET COUNT 103 X10^3/uL (150.0-450.0); RED BLOOD COUNT 2.28 X10^6/uL (3.5-5.4); RED CELL DISTRIBUTION WIDTH 19.4 % (11.6-16.5); WHITE BLOOD COUNT 7.6 X10^3/uL (3.6-10.0)
[2017-02-15 16:22] LABS: BURR CELLS PRESENT; HYPOCHROMASIA SLIGHT; MICROCYTOSIS SLIGHT; PLATELET MORPHOLOGY COMMENT NORMAL (NORMAL)
[2017-02-15] MEDS: XOPENEX 1.25 MG/3 ML NEBULE NEB SCH (17:19)
[2017-02-15] MEDS: SNACK - Diabetic Appropriate PO SCH (20:16)
[2017-02-15] MEDS: SINGULAIR TAB 10 MG PO SCH (20:17)
[2017-02-15] MEDS: PRAVACHOL PO SCH (20:19)
[2017-02-15] MEDS: BUTT CREAM (COMPOUND) TOP PRN (20:20)
[2017-02-16] MEDS: XOPENEX 1.25 MG/3 ML NEBULE NEB SCH ×4 (01:08→17:24)
[2017-02-16] MEDS: NS 1/2 1000 ML IV 1,000 ML IV SCH ×3 (05:13→17:13)
[2017-02-16] MEDS ORDERED: NS 1/2 1000 ML IV 1,000 ML IV ONE (05:38)
[2017-02-16 06:00] LABS: ALANINE AMINOTRANSFERASE 16 Units/L (12-78); ALBUMIN 1.6 g/dL (3.4-5.0); ALKALINE PHOSPHATASE 65 Units/L (46-116); ASPARTATE AMINO TRANSFERASE 23 Units/L (15-37); BLOOD UREA NITROGEN 17 mg/dL (7-18); CALCIUM 11.2 mg/dL (8.5-10.1); CARBON DIOXIDE 22.9 mmol/L (21-32); COR CA(FOR HYPOALB) 13.1 mg/dL (8.5-10.1); GLUCOSE 95 mg/dL (65-99); SODIUM 146 mmol/L (136-145); TOTAL PROTEIN 5.9 g/dL (6.4-8.2); eGFR BLACK RACES 32 (>60); eGFR NON BLACK RACES 27 (>60)
[2017-02-16 06:05] LABS: BASOPHILS % (AUTO) 0.5 % (0.2-1.0); EOSINOPHILS # (AUTO) 0.1 x10^3/uL (0.0-0.2); EOSINOPHILS % (AUTO) 1.3 % (0.9-2.9); HEMATOCRIT 22.9 % (36.0-47.0); HEMOGLOBIN 7.4 g/dL (12.0-16.0); LYMPHOCYTES # (AUTO) 1.6 X10^3/uL (1.3-2.9); LYMPHOCYTES % (AUTO) 23.6 % (21.0-51.0); MEAN CORPUSCULAR HEMOGLOBIN 32.7 pg (27.0-34.0); MEAN CORPUSCULAR HGB CONC 32.5 g/dL (33.0-35.0); MEAN CORPUSCULAR VOLUME 100.7 fL (80.0-100.0); MEAN PLATELET VOLUME 9.8 fL (7.4-11.0); MONOCYTES # (AUTO) 0.3 x10^3/uL (0.3-0.8); MONOCYTES % (AUTO) 4.9 % (0.0-13.0); NEUTROPHILS # (AUTO) 4.7 x10^3/uL (2.2-4.8); NEUTROPHILS % (AUTO) 69.7 % (42.0-75.0); PLATELET COUNT 99 X10^3/uL (150.0-450.0); RED BLOOD COUNT 2.28 X10^6/uL (3.5-5.4); RED CELL DISTRIBUTION WIDTH 19.2 % (11.6-16.5); WHITE BLOOD COUNT 6.8 X10^3/uL (3.6-10.0)
[2017-02-16] MEDS: SYNTHROID 75 mcg TAB PO SCH (06:17)
[2017-02-16] MEDS: FERROUS SULFATE PO SCH ×3 (06:17→21:02)
--- NOTE | 2017-02-16 06:24 | RAD ---
HISTORY: Failure to thrive, pneumonia Study: Single-view chest, done portably Comparison: February 15, 2017 Findings: Left-sided pacemaker is present with intact leads. Trachea is midline. There is cardiomegaly with at herosclerotic calcification and uncoiling of the aortic arch. Further increase in right basilar dens ity is seen which may represent atelectasis or. Increasing densities present in the left lung base w ith obscuration of the left hemidiaphragm. A small amount of pleural fluid may be present on the lef t also. Osseous structures display no acute abnormality. IMPRESSION: Increasing bibasilar foci of atelectasis, infiltrate and/or pleural fluid. Reported By:
[2017-02-16 06:40] LABS: HYPOCHROMASIA 1+; PLATELET MORPHOLOGY COMMENT NORMAL (NORMAL)
[2017-02-16] MEDS ORDERED: LEXAPRO ONE (08:20)
[2017-02-16] MEDS: ASPIRIN EC 81 MG PO SCH (08:25)
[2017-02-16] MEDS: ROCEPHIN VIAL 1 GM 1 GM in NS 50 ML IV + SPIKE MINIBAG* 50 ML IV SCH (08:25)
[2017-02-16] MEDS: ROCALTROL PO SCH (08:25)
[2017-02-16] MEDS: LEXAPRO PO SCH (08:26)
[2017-02-16] MEDS: TAB-A-VITE PO SCH (08:26)
[2017-02-16] MEDS: PLAVIX PO SCH (08:26)
[2017-02-16] MEDS: K-DUR TAB 20 MEQ PO SCH ×2 (08:26→20:56)
[2017-02-16] MEDS: COREG TAB 6.25 MG PO SCH ×2 (08:26→20:55)
[2017-02-16] MEDS: BUTT CREAM (COMPOUND) TOP PRN (08:27)
[2017-02-16] MEDS: COMBIGAN EYE DROPS EACHEYE SCH ×2 (08:27→20:56)
[2017-02-16] MEDS: LASIX IVP SCH ×2 (08:49→21:17)
[2017-02-16] MEDS ORDERED: LASIX IVP ONE ×2 (10:08→21:21)
[2017-02-16] MEDS ORDERED: NS 500 ML IV 500 ML IV ONE (10:10)
--- NOTE | 2017-02-16 12:55 | PCM.PROG ---
Progress Note - Progress Note for Day of Date: 02/16/17 - Subjective Subjective: 86 WF ADMITTED ON 02/12 WITH ELECTROLYTE IMBALANCE HYPOTENSION AND WEAKNESS. HYPERNATREMIA, CURRENTLY ON 1/2 NS, WILL ENCOURAGE PO WATER, LASIX IV THIS , PTS EXTREMITY EDEMA MUCH IMPROVED THIS AM, IMPROVED RESP DISTRESS, WILL TRANSFUSE PRBC SLOWLY WITH LASIX POST INFUSION. REPEAT AM LABS, STRICT I & OS BP MONITORING. FAMILY ASKED ABOUT FEEDING TUBE, CURRENTLY PT EATING 15-20 % MEALS SINCE IMPROVING RESP DISTRESS - Past Medical Family Social History Past Med/Fam/Surg Hx: No changes since H&P Allergies: Allergies codeine Adverse Reaction (Verified 02/12/17 17:32) dextromethorphan [From Nini DM Cough-Chest Congest] Adverse Reaction ( Verified 02/12/17 17:32) guaifenesin Adverse Reaction (Verified 02/12/17 17:32) ETHANOL Adverse Reaction (Uncoded 02/12/17 17:33) FROM [place] - Review of Systems ROS: No change since H&P - Vital Signs and I&O's Vital Signs: Temperature 96.8 F Pulse Rate [Right Brachial] 65 Pulse Rate 62 Respiratory Rate 18 Blood Pressure [Right Arm] 120/57 Blood Pressure [Left Arm] 102/51 Blood Pressure 116/56 O2 Sat by Pulse Oximetry 98 Intake and Output: Intake & Output 02/14/17 02/15/17 02/16/17 02/17/17 11:59 11:59 11:59 11:59 Intake Total 1681 3451 1799 Output Total 009 568 0034 Balance 1181 2951 299 - Physical Exam Oriented: Normal Eyes: Discharge, Other (CHRONIC BLINDNESS RIGHT EYE, CHRONIC CONJUNCTIVITIS) Ear: Normal Nose: Normal Respiratory: Diminished Cardiovascular: Edema : Normal Auscultation: Bowel Sounds: Normal Tenderness: Normal Skin: Decreased [place], Other (3RD SPACE EDEMA DIFFUSE LIMBS) Musculoskeletal: Hip, Back:Lumbar, Motor Deficit (DIFFUSE MUSCLE WEAKNESS) Psychiatric: Depression, Agitation Speech Pattern: Clear, Appropriate - Laboratory and Diagnostics Result Diagrams: 02/16/17 05:35 02/16/17 05:35 Labs: 02/15/17 03:24 Stool Stool Culture - Preliminary 02/15/17 03:24 Stool - Final 02/12/17 17:54 Urine,Catheterized Urine Culture - Final 02/12/17 16:10 Blood Blood Culture - Preliminary 02/12/17 16:05 Blood Blood Culture - Preliminary Laboratory WBC 6.8 X10^3/uL (3.6-10.0) 02/16/17 05:35 RBC 2.28 X10^6/uL (3.5-5.4) L 02/16/17 05:35 Hgb 7.4 g/dL (12.0-16.0) L 02/16/17 05:35 Hct 22.9 % (36.0-47.0) L 02/16/17 05:35 MCV 100.7 fL (80.0-100.0) H 02/16/17 05:35 MCH 32.7 pg (27.0-34.0) 02/16/17 05:35 MCHC 32.5 g/dL (33.0-35.0) L 02/16/17 05:35 RDW 19.2 % (11.6-16.5) H 02/16/17 05:35 Plt Count 99 X10^3/uL (150.0-450.0) L 02/16/17 05:35 Plt Count Comment Decreased (ADEQUATE) A 02/16/17 05:35 MPV 9.8 fL (7.4-11.0) 02/16/17 05:35 Neut % 69.7 % (42.0-75.0) 02/16/17 05:35 Lymph % 23.6 % (21.0-51.0) 02/16/17 05:35 [place] % 4.9 % (0.0-13.0) 02/16/17 05:35 Eos % 1.3 % (0.9-2.9) 02/16/17 05:35 Baso % 0.5 % (0.2-1.0) 02/16/17 05:35 Neut # 4.7 x10^3/uL (2.2-4.8) 02/16/17 05:35 Lymph # 1.6 X10^3/uL (1.3-2.9) 02/16/17 05:35 [place] # 0.3 x10^3/uL (0.3-0.8) 02/16/17 05:35 Eos # 0.1 x10^3/uL (0.0-0.2) 02/16/17 05:35 Baso # 0.0 X10^3/uL (0.0-0.1) 02/16/17 05:35 Absolute Nucleated RBC 1.7 /100WBC 02/16/17 05:35 Plt Morphology Comment Normal (NORMAL) 02/16/17 05:35 RBC Morphology Abnormal (NORMAL) A 02/16/17 05:35 Hypochromasia 1+ A 02/16/17 05:35 Poikilocytosis Slight A 02/13/17 05:40 Basophilic Stippling 1+ A 02/12/17 16:10 Anisocytosis 1+ A 02/12/17 16:10 Microcytosis Slight A 02/15/17 15:35 [place]asia Cells Present 02/15/17 15:35 Sodium 146 mmol/L (136-145) H 02/16/17 05:35 Corrected Sodium TNP 02/16/17 05:35 Potassium 5.0 mmol/L (3.5-5.1) 02/16/17 05:35 Chloride 119 mmol/L (98-107) H* 02/16/17 05:35 Carbon Dioxide 22.9 mmol/L (21-32) 02/16/17 05:35 BUN 17 mg/dL (7-18) 02/16/17 05:35 Creatinine 1.90 mg/dL (0.55-1.02) H 02/16/17 05:35 Est GFR (MDRD) Af Amer 32 (>60) L 02/16/17 05:35 Est GFR (MDRD) Non-Af 27 (>60) L 02/16/17 05:35 Glucose 95 mg/dL (65-99) 02/16/17 05:35 Calcium 11.2 mg/dL (8.5-10.1) H 02/16/17 05:35 Corrected Calcium 13.1 mg/dL (8.5-10.1) H 02/16/17 05:35 Magnesium 1.8 mg/dL (1.7-2.9) 02/12/17 17:19 Iron 53 ug/dL (50-175) 02/16/17 09:00 Transferrin 82 mg/dL (202-364) L 02/16/17 09:00 Ferritin 487 ng/mL (8-252) H 02/16/17 09:00 Total Bilirubin 0.20 mg/dL (0.2-1.0) 02/16/17 05:35 AST 23 Units/L (15-37) 02/16/17 05:35 ALT 16 Units/L (12-78) 02/16/17 05:35 Alkaline Phosphatase 65 Units/L (46-116) 02/16/17 05:35 Total Protein 5.9 g/dL (6.4-8.2) L 02/16/17 05:35 Albumin 1.6 g/dL (3.4-5.0) L 02/16/17 05:35 Globulin 4.3 g/dL (2.5-4.5) 02/16/17 05:35 Albumin/Globulin Ratio 0.4 Ratio (1.1-2.1) L 02/16/17 05:35 Vitamin B12 1145 pg/mL (193-986) H 02/16/17 09:00 Folate 13.3 ng/mL (>8.6) 02/16/17 09:00 Free T4 0.70 ng/dL (0.76-1.46) L 02/12/17 17:19 TSH 3rd Generation 57.416 uIU/mL (0.358-3.74) H 02/12/17 17:19 Specimen Type Catherized urine 02/12/17 17:54 Urine Color Yellow (YELLOW) 02/12/17 17:54 Urine Appearance Slightly hazy (CLEAR) 02/12/17 17:54 Urine pH 5.0 (5.0 - 8.0) 02/12/17 17:54 Ur Specific [place] 1.025 (1.000-1.030) 02/12/17 17:54 Urine Protein 2+ (NEGATIVE) 02/12/17 17:54 Urine Glucose (UA) Negative (NEGATIVE) 02/12/17 17:54 Urine Ketones Negative (NEGATIVE) 02/12/17 17:54 Urine Occult Blood Negative (NEGATIVE) 02/12/17 17:54 Urine Nitrite Negative (NEGATIVE) 02/12/17 17:54 Urine Bilirubin Negative (NEGATIVE) 02/12/17 17:54 Urine Urobilinogen Normal (NORMAL) 02/12/17 17:54 Ur Leukocyte Esterase 1+ (NEGATIVE) 02/12/17 17:54 Urine RBC Negative /HPF (NEGATIVE) 02/12/17 17:54 Urine WBC Rare /HPF (NEGATIVE) 02/12/17 17:54 Ur Squamous Epith Cells Rare /HPF (NEGATIVE) 02/12/17 17:54 Urine Bacteria Trace /HPF (NEGATIVE) 02/12/17 17:54 Ur Culture Indicated? Yes/culture set up 02/12/17 17:54 Stool Description 5 g black,tarry 02/15/17 03:24 Stl Occult Blood (IFOB) Positive (NEGATIVE) A 02/15/17 03:24 Cryptosporid parvum Ag Negative (NEGATIVE) 02/15/17 03:24 E. histolytica Antigen Negative (NEGATIVE) 02/15/17 03:24 Giardia lamblia Ag Negative (NEGATIVE) 02/15/17 03:24 Blood Type O POSITIVE 02/16/17 09:00 Antibody Screen Negative 02/16/17 09:00 Crossmatch See Detail 02/16/17 09:00 - Plan (1) Hypotension Status: Acute Qualifiers: Hypotension type: other hypotension type Trimester: T Qualified Code(s): I95.89 - Other hypotension Plan: ICU, CARDIAC MONITORING. CURRENTLY ON 07/06 NS, WILL ENCOURAGE PO WATER, LASIX IV THIS , PTS EXTREMITY EDEMA MUCH IMPROVED THIS AM, IMPROVED RESP DISTRESS, WILL TRANSFUSE PRBC SLOWLY WITH LASIX POST INFUSION. REPEAT AM LABS, STRICT I & OS BP MONITORING (2) Anemia Status: Acute Qualifiers: Anemia type: A Iron deficiency anemia type: I Vitamin B12 deficiency anemia type: V Folate deficiency anemia type: F Bone marrow failure anemia type: B Hemolytic anemia type: H Other causes of anemia: O Chronic kidney disease stage: C Plan: TYPE AND SCREEN, TRANFUSE PRBC SLOWLY, WITH LASIX POST INFUSION. AM CXR, REPEAT AM CBC CMP (3) Dehydration Status: Acute (4) Weakness Status: Acute (5) CHF (congestive heart failure) Status: Chronic Qualifiers: Congestive heart failure type: combined Congestive heart failure chronicity : acute on chronic Qualified Code(s): I50.43 - Acute on chronic combined systolic (congestive) and diastolic (congestive) heart failure Plan: IMPROVED EDEMA, CONTINUE LASIX 40MG IV, AM CXR. WILL GENTLY DIURESE TOLERATED, STRICT I & O'S (6) Diabetes mellitus, type II Status: Chronic Qualifiers: Diabetes mellitus complication status: D Diabetes mellitus complication detail: D Diabetic retinopathy severity: D Proliferative retinopathy type: P Diabetes mellitus macular edema: D Diabetes mellitus terminal operator insulin use : D Laterality: L Chronic kidney disease stage: C Plan: SSI (7) HTN (hypertension) Status: Chronic Qualifiers: Hypertension type: H (8) Hilar mass Status: Chronic (9) Hypothyroidism Status: Chronic Qualifiers: Hypothyroidism type: H Plan: THS FREE T 4 COLLECTED. CONTINUE LEVOTHYROXINE
[2017-02-16] MEDS: HumuLIN R SC PRN (17:13)
[2017-02-16] MEDS ORDERED: LASIX ONE ×2 (19:29→21:15)
[2017-02-16] MEDS: SINGULAIR TAB 10 MG PO SCH (20:55)
[2017-02-16] MEDS: PRAVACHOL PO SCH (20:55)
[2017-02-16] MEDS: SNACK - Diabetic Appropriate PO SCH (20:56)
[2017-02-17] MEDS: XOPENEX 1.25 MG/3 ML NEBULE NEB SCH ×4 (01:05→17:11)
[2017-02-17] MEDS: NS 1/2 1000 ML IV 1,000 ML IV SCH ×3 (02:34→17:17)
[2017-02-17] MEDS: FERROUS SULFATE PO SCH ×3 (05:52→21:29)
[2017-02-17] MEDS: SYNTHROID 75 mcg TAB PO SCH (05:59)
[2017-02-17 06:00] LABS: ALANINE AMINOTRANSFERASE 18 Units/L (12-78); ALBUMIN 1.8 g/dL (3.4-5.0); ALKALINE PHOSPHATASE 71 Units/L (46-116); ASPARTATE AMINO TRANSFERASE 27 Units/L (15-37); BLOOD UREA NITROGEN 17 mg/dL (7-18); CALCIUM 11.4 mg/dL (8.5-10.1); CARBON DIOXIDE 23.1 mmol/L (21-32); COR CA(FOR HYPOALB) 13.2 mg/dL (8.5-10.1); CREATININE 1.88 mg/dL (0.55-1.02); GLUCOSE 87 mg/dL (65-99); SODIUM 145 mmol/L (136-145); TOTAL PROTEIN 6.2 g/dL (6.4-8.2); eGFR BLACK RACES 33 (>60); eGFR NON BLACK RACES 27 (>60)
[2017-02-17 06:08] LABS: CHLORIDE 117 mmol/L (98-107)
[2017-02-17 06:10] LABS: BASOPHILS # (AUTO) 0.1 X10^3/uL (0.0-0.1); BASOPHILS % (AUTO) 0.7 % (0.2-1.0); EOSINOPHILS # (AUTO) 0.1 x10^3/uL (0.0-0.2); EOSINOPHILS % (AUTO) 1.6 % (0.9-2.9); HEMATOCRIT 32.7 % (36.0-47.0); HEMOGLOBIN 10.9 g/dL (12.0-16.0); LYMPHOCYTES # (AUTO) 1.9 X10^3/uL (1.3-2.9); LYMPHOCYTES % (AUTO) 24.7 % (21.0-51.0); MEAN CORPUSCULAR HEMOGLOBIN 31.7 pg (27.0-34.0); MEAN CORPUSCULAR HGB CONC 33.4 g/dL (33.0-35.0); MEAN PLATELET VOLUME 10.2 fL (7.4-11.0); MONOCYTES # (AUTO) 0.5 x10^3/uL (0.3-0.8); MONOCYTES % (AUTO) 6.1 % (0.0-13.0); NEUTROPHILS # (AUTO) 5.2 x10^3/uL (2.2-4.8); NEUTROPHILS % (AUTO) 66.9 % (42.0-75.0); PLATELET COUNT 96 X10^3/uL (150.0-450.0); RED BLOOD COUNT 3.44 X10^6/uL (3.5-5.4); RED CELL DISTRIBUTION WIDTH 17.1 % (11.6-16.5); WHITE BLOOD COUNT 7.7 X10^3/uL (3.6-10.0)
--- NOTE | 2017-02-17 06:25 | RAD ---
HISTORY: Follow up congestive heart failure Study: Chest one view Comparison: February 16, 2017 Findings: There is a pacemaker present in the left axilla. The heart is enlarged. No definite congestive heart failure is present. The keri are normal. The aorta is calcified. There is subsegmental atelectasis in the medial right lung base unchanged when compared with the prior examination. Increased density in the retrocardiac area left lower lobe could be due to atelectasis, effusion, infiltrate or a comb ination . It is unchanged from the prior examination. Left upper lung field is clear. IMPRESSION: No significant change from the prior examination Reported By:
[2017-02-17 06:33] LABS: HYPOCHROMASIA SLIGHT; PLATELET MORPHOLOGY COMMENT NORMAL (NORMAL)
[2017-02-17] MEDS: COREG TAB 6.25 MG PO SCH (09:46)
[2017-02-17] MEDS: COMBIGAN EYE DROPS EACHEYE SCH ×2 (09:46→21:28)
[2017-02-17] MEDS: LASIX IVP SCH ×2 (09:47→21:29)
[2017-02-17] MEDS: LEXAPRO PO SCH (09:48)
[2017-02-17] MEDS: ROCALTROL PO SCH (09:49)
[2017-02-17] MEDS: K-DUR TAB 20 MEQ PO SCH ×2 (09:49→21:27)
[2017-02-17] MEDS: ROCEPHIN VIAL 1 GM 1 GM in NS 50 ML IV + SPIKE MINIBAG* 50 ML IV SCH (09:49)
[2017-02-17] MEDS: TAB-A-VITE PO SCH (09:49)
[2017-02-17] MEDS ORDERED: D5 LR 1000 ML 1,000 ML IV ONE (11:02)
[2017-02-17] MEDS ORDERED: DIPRIVAN VIAL 10 ML ONE (11:17)
[2017-02-17 11:54] LABS: CHLORIDE 119 mmol/L (98-107)
[2017-02-17] MEDS: PROTONIX INJ 40 MG VIAL IVP SCH ×2 (15:15→22:34)
[2017-02-17] MEDS ORDERED: LASIX IVP ONE (21:21)
[2017-02-17] MEDS: SNACK - Diabetic Appropriate PO SCH (21:26)
[2017-02-17] MEDS: COREG TAB 3.125 MG PO SCH (21:27)
[2017-02-17] MEDS: SINGULAIR TAB 10 MG PO SCH (21:30)
[2017-02-17] MEDS: PRAVACHOL PO SCH (21:30)
[2017-02-18] MEDS: XOPENEX 1.25 MG/3 ML NEBULE NEB SCH ×2 (01:52→05:16)
[2017-02-18 06:15] LABS: BASOPHILS % (AUTO) 0.4 % (0.2-1.0); EOSINOPHILS # (AUTO) 0.1 x10^3/uL (0.0-0.2); EOSINOPHILS % (AUTO) 1.2 % (0.9-2.9); HEMATOCRIT 33.2 % (36.0-47.0); LYMPHOCYTES # (AUTO) 1.4 X10^3/uL (1.3-2.9); MEAN CORPUSCULAR HEMOGLOBIN 31.3 pg (27.0-34.0); MEAN CORPUSCULAR HGB CONC 33.2 g/dL (33.0-35.0); MEAN CORPUSCULAR VOLUME 94.4 fL (80.0-100.0); MEAN PLATELET VOLUME 10.3 fL (7.4-11.0); MONOCYTES # (AUTO) 0.4 x10^3/uL (0.3-0.8); MONOCYTES % (AUTO) 5.5 % (0.0-13.0); NEUTROPHILS # (AUTO) 5.8 x10^3/uL (2.2-4.8); NEUTROPHILS % (AUTO) 74.9 % (42.0-75.0); PLATELET COUNT 100 X10^3/uL (150.0-450.0); RED BLOOD COUNT 3.51 X10^6/uL (3.5-5.4); RED CELL DISTRIBUTION WIDTH 17.1 % (11.6-16.5); WHITE BLOOD COUNT 7.7 X10^3/uL (3.6-10.0)
[2017-02-18] MEDS: FERROUS SULFATE PO SCH (06:23)
[2017-02-18 06:59] LABS: ALANINE AMINOTRANSFERASE 21 Units/L (12-78); ALBUMIN 1.8 g/dL (3.4-5.0); ALKALINE PHOSPHATASE 67 Units/L (46-116); ASPARTATE AMINO TRANSFERASE 26 Units/L (15-37); BLOOD UREA NITROGEN 16 mg/dL (7-18); CALCIUM 10.8 mg/dL (8.5-10.1); CARBON DIOXIDE 23.7 mmol/L (21-32); COR CA(FOR HYPOALB) 12.6 mg/dL (8.5-10.1); CREATININE 1.93 mg/dL (0.55-1.02); GLUCOSE 104 mg/dL (65-99); SODIUM 145 mmol/L (136-145); TOTAL PROTEIN 6.4 g/dL (6.4-8.2); eGFR BLACK RACES 32 (>60); eGFR NON BLACK RACES 26 (>60)
[2017-02-18] MEDS ORDERED: SYNTHROID 100 mcg TAB PO SCH (07:00)
[2017-02-18 07:13] LABS: CHLORIDE 115 mmol/L (98-107)
[2017-02-18] MEDS: NS 1/2 1000 ML IV 1,000 ML IV SCH ×2 (07:38→08:51)
[2017-02-18] MEDS ORDERED: LEXAPRO ONE (08:16)
[2017-02-18] MEDS: COMBIGAN EYE DROPS EACHEYE SCH (08:50)
[2017-02-18] MEDS: LEXAPRO PO SCH (08:50)
[2017-02-18] MEDS: K-DUR TAB 20 MEQ PO SCH (08:50)
[2017-02-18] MEDS: LASIX IVP SCH (08:50)
[2017-02-18] MEDS: PROTONIX INJ 40 MG VIAL IVP SCH (08:51)
[2017-02-18] MEDS: COREG TAB 3.125 MG PO SCH (08:51)
[2017-02-18] MEDS: TAB-A-VITE PO SCH (08:51)
[2017-02-18] MEDS ORDERED: NS 1/2 1000 ML IV 1,000 ML IV ONE (09:11)
[2017-02-18 10:03] VITALS: BP 174/76
== END 2017-02-18 11:55 | DRG 314 ==
LOC: ICU 14:38
PROVIDERS: ADMIT Internal Medicine; ATTEND Internal Medicine
PROC: 30233N1 Transfusion of Nonautologous Red Blood Cells into Peripheral Vein, Percutaneous Approach (ICD-10-PCS; 2017-02-16)
PROC: 30233N1 Transfusion of Nonautologous Red Blood Cells into Peripheral Vein, Percutaneous Approach (ICD-10-PCS; 2017-02-16)
PROC: 0DB68ZX Excision of Stomach, Via Natural or Artificial Opening Endoscopic, Diagnostic (ICD-10-PCS; 2017-02-17)
PROC: 0DB68ZX Excision of Stomach, Via Natural or Artificial Opening Endoscopic, Diagnostic (ICD-10-PCS; principal; 2017-02-17 14:00)
DX: I95.89 Other hypotension (principal); I50.43 Acute on chronic combined systolic (congestive) and diastolic (congestive) heart failure; N39.0 Urinary tract infection, site not specified; E87.0 Hyperosmolality and hypernatremia; E87.1 Hypo-osmolality and hyponatremia; R62.7 Adult failure to thrive; E86.0 Dehydration; E11.65 Type 2 diabetes mellitus with hyperglycemia; E03.8 Other specified hypothyroidism; R53.1 Weakness; R06.02 Shortness of breath; I10 Essential (primary) hypertension; I25.10 Atherosclerotic heart disease of native coronary artery without angina pectoris; R91.8 Other nonspecific abnormal finding of lung field; D64.89 Other specified anemias; R10.13 Epigastric pain; K44.9 Diaphragmatic hernia without obstruction or gangrene; K22.2 Esophageal obstruction; K29.60 Other gastritis without bleeding; K29.00 Acute gastritis without bleeding; K29.80 Duodenitis without bleeding; K26.9 Duodenal ulcer, unspecified as acute or chronic, without hemorrhage or perforation; Z66 Do not resuscitate
CPT/HCPCS: 36415; 36430; 71010; 80053; 81001; 82270; 82607; 82728; 82746; 83540; 83735; 84439; 84443; 84466; 85025; 86850; 86900; 86901; 86922; 87040; 87045; 87086; 87328; 87329; 87336; 87427; 87493; 87899; 88305; 88313; 88342; 94640; 99100; A4222; C9113; P9016; S0181; A4217; J0696; J1815; J1940; J3490; J7120

== ENCOUNTER 2017-02-19 13:53 | Inpatient (IN) | payer OTHER ==
[2017-02-19] MEDS ORDERED: NYSTATIN POWDER ONE (16:48)
[2017-02-19 17:23] LABS: BILIRUBIN,URINE NEGATIVE (NEGATIVE); BLOOD/HEMOGLOBIN,URINE 1+ (NEGATIVE); GLUCOSE, URINE NEGATIVE (NEGATIVE); KETONES,URINE NEGATIVE (NEGATIVE); LEUKOCYTE ESTERASE ,URINE 1+ (NEGATIVE); NITRITES,URINE NEGATIVE (NEGATIVE); PROTEIN,URINE 2+ (NEGATIVE); UROBILINOGEN,URINE NORMAL (NORMAL)
[2017-02-19 17:30] LABS: APPEARANCE,URINE HAZY (CLEAR); BACTERIA,URINE TRACE /HPF (NEGATIVE); COLOR,URINE YELLOW (YELLOW); RBC,URINE 0-2 /HPF (NEGATIVE); SQUAMOUS EPITHELIAL CELL,UR NEGATIVE /HPF (NEGATIVE)
[2017-02-19 19:18] LABS: BASOPHILS # (AUTO) 0.1 X10^3/uL (0.0-0.1); BASOPHILS % (AUTO) 0.6 % (0.2-1.0); EOSINOPHILS # (AUTO) 0.1 x10^3/uL (0.0-0.2); HEMATOCRIT 30.7 % (36.0-47.0); HEMOGLOBIN 10.3 g/dL (12.0-16.0); LYMPHOCYTES # (AUTO) 1.5 X10^3/uL (1.3-2.9); LYMPHOCYTES % (AUTO) 18.2 % (21.0-51.0); MEAN CORPUSCULAR HEMOGLOBIN 31.4 pg (27.0-34.0); MEAN CORPUSCULAR HGB CONC 33.5 g/dL (33.0-35.0); MEAN CORPUSCULAR VOLUME 93.7 fL (80.0-100.0); MEAN PLATELET VOLUME 9.6 fL (7.4-11.0); MONOCYTES # (AUTO) 0.5 x10^3/uL (0.3-0.8); MONOCYTES % (AUTO) 6.2 % (0.0-13.0); NEUTROPHILS # (AUTO) 6.1 x10^3/uL (2.2-4.8); PLATELET COUNT 93 X10^3/uL (150.0-450.0); RED BLOOD COUNT 3.27 X10^6/uL (3.5-5.4); WHITE BLOOD COUNT 8.3 X10^3/uL (3.6-10.0)
[2017-02-19 19:29] LABS: ALANINE AMINOTRANSFERASE 19 Units/L (12-78); ALBUMIN 1.7 g/dL (3.4-5.0); ALKALINE PHOSPHATASE 65 Units/L (46-116); ASPARTATE AMINO TRANSFERASE 22 Units/L (15-37); BLOOD UREA NITROGEN 17 mg/dL (7-18); CALCIUM 10.2 mg/dL (8.5-10.1); CARBON DIOXIDE 23.6 mmol/L (21-32); CREATININE 2.02 mg/dL (0.55-1.02); GLUCOSE 77 mg/dL (65-99); SODIUM 148 mmol/L (136-145); TOTAL PROTEIN 5.8 g/dL (6.4-8.2); eGFR BLACK RACES 30 (>60); eGFR NON BLACK RACES 25 (>60)
[2017-02-19 19:30] LABS: CHLORIDE 117 mmol/L (98-107)
--- NOTE | 2017-02-19 22:40 | RAD ---
Portable chest Indication: 86-year-old woman with failure to thrive. Comparison: February 17, 2017 Impression: There is stable cardiomegaly with stable position of the neck with dual-chamber pacemaker leads. The lungs remain hyperexpanded with chronic interstitial prominence suggestive of COPD. Streaky right b asilar atelectasis and retrocardiac left lower lobe opacity appears similar. No new abnormality. Reported By:
[2017-02-20 06:19] LABS: ALBUMIN 1.5 g/dL (3.4-5.0); CALCIUM 10.1 mg/dL (8.5-10.1); CARBON DIOXIDE 27.6 mmol/L (21-32); COR CA(FOR HYPOALB) 12.1 mg/dL (8.5-10.1); CREATININE 2.1 mg/dL (0.55-1.02); TOTAL PROTEIN 5.5 g/dL (6.4-8.2)
[2017-02-20 06:22] LABS: BASOPHILS % (AUTO) 0.5 % (0.2-1.0); EOSINOPHILS # (AUTO) 0.1 x10^3/uL (0.0-0.2); EOSINOPHILS % (AUTO) 1.2 % (0.9-2.9); HEMATOCRIT 30.7 % (36.0-47.0); HEMOGLOBIN 10.3 g/dL (12.0-16.0); LYMPHOCYTES # (AUTO) 1.4 X10^3/uL (1.3-2.9); LYMPHOCYTES % (AUTO) 17.5 % (21.0-51.0); MEAN CORPUSCULAR HEMOGLOBIN 31.5 pg (27.0-34.0); MEAN CORPUSCULAR HGB CONC 33.4 g/dL (33.0-35.0); MEAN CORPUSCULAR VOLUME 94.4 fL (80.0-100.0); MEAN PLATELET VOLUME 10.1 fL (7.4-11.0); MONOCYTES # (AUTO) 0.5 x10^3/uL (0.3-0.8); MONOCYTES % (AUTO) 6.9 % (0.0-13.0); NEUTROPHILS # (AUTO) 5.8 x10^3/uL (2.2-4.8); NEUTROPHILS % (AUTO) 73.9 % (42.0-75.0); PLATELET COUNT 86 X10^3/uL (150.0-450.0); RED BLOOD COUNT 3.25 X10^6/uL (3.5-5.4); RED CELL DISTRIBUTION WIDTH 16.8 % (11.6-16.5); WHITE BLOOD COUNT 7.8 X10^3/uL (3.6-10.0)
[2017-02-21 02:30] VITALS: BMI 24.0
[2017-02-21 07:08] LABS: EOSINOPHILS # (AUTO) 0.2 x10^3/uL (0.0-0.2); EOSINOPHILS % (AUTO) 2.3 % (0.9-2.9); HEMATOCRIT 30.4 % (36.0-47.0); MONOCYTES # (AUTO) 0.7 x10^3/uL (0.3-0.8)
[2017-02-21 07:11] LABS: BASOPHILS % (AUTO) 0.5 % (0.2-1.0); HEMOGLOBIN 10.2 g/dL (12.0-16.0); LYMPHOCYTES # (AUTO) 1.9 X10^3/uL (1.3-2.9); LYMPHOCYTES % (AUTO) 23.5 % (21.0-51.0); MEAN CORPUSCULAR HEMOGLOBIN 31.7 pg (27.0-34.0); MEAN CORPUSCULAR HGB CONC 33.5 g/dL (33.0-35.0); MEAN CORPUSCULAR VOLUME 94.8 fL (80.0-100.0); MEAN PLATELET VOLUME 9.9 fL (7.4-11.0); MONOCYTES % (AUTO) 8.1 % (0.0-13.0); NEUTROPHILS # (AUTO) 5.4 x10^3/uL (2.2-4.8); NEUTROPHILS % (AUTO) 65.6 % (42.0-75.0); PLATELET COUNT 82 X10^3/uL (150.0-450.0); RED CELL DISTRIBUTION WIDTH 17.7 % (11.6-16.5); WHITE BLOOD COUNT 8.3 X10^3/uL (3.6-10.0)
[2017-02-21 07:25] LABS: ALBUMIN 1.5 g/dL (3.4-5.0); CALCIUM 10.3 mg/dL (8.5-10.1); CARBON DIOXIDE 25.5 mmol/L (21-32); COR CA(FOR HYPOALB) 12.3 mg/dL (8.5-10.1); CREATININE 2.03 mg/dL (0.55-1.02); TOTAL PROTEIN 5.6 g/dL (6.4-8.2)
[2017-02-21] MEDS ORDERED: TYLENOL 500 MG TAB EXTRA STRENGTH PO PRN (15:12)
[2017-02-21] MEDS ORDERED: PATIENT'S HOME MEDICATION (Multiple Vitamins W/ Minerals [Centrum Silver] 1 TAB) PO SCH (15:15)
[2017-02-21] MEDS ORDERED: CALCITRIOL 0.5 MCG PO SCH (15:15)
[2017-02-21 15:44] LABS: FREE T4 (FREE THYROXINE) 0.81 ng/dL (0.76-1.46); TSH (3RD GENERATION) 32.309 uIU/mL (0.358-3.74)
[2017-02-21] MEDS: FERROUS SULFATE PO SCH (16:57)
[2017-02-21] MEDS: SYNTHROID 100 mcg TAB PO SCH (16:57)
[2017-02-21] MEDS: COREG TAB 6.25 MG PO SCH ×2 (16:57→22:46)
[2017-02-21] MEDS: COMBIGAN EYE DROPS LEFTEYE SCH ×2 (17:00→22:46)
[2017-02-21] MEDS ORDERED: LEXAPRO ONE (20:08)
[2017-02-21] MEDS: SINGULAIR TAB 10 MG PO SCH (20:25)
[2017-02-21] MEDS: LEXAPRO PO SCH (20:25)
[2017-02-22 05:40] LABS: ALBUMIN 1.5 g/dL (3.4-5.0); CALCIUM 10.3 mg/dL (8.5-10.1); CARBON DIOXIDE 26.5 mmol/L (21-32); COR CA(FOR HYPOALB) 12.3 mg/dL (8.5-10.1); CREATININE 1.95 mg/dL (0.55-1.02); TOTAL PROTEIN 5.7 g/dL (6.4-8.2)
[2017-02-22 05:52] LABS: BASOPHILS % (AUTO) 0.5 % (0.2-1.0); EOSINOPHILS # (AUTO) 0.2 x10^3/uL (0.0-0.2); EOSINOPHILS % (AUTO) 2.5 % (0.9-2.9); HEMATOCRIT 30.5 % (36.0-47.0); HEMOGLOBIN 10.2 g/dL (12.0-16.0); LYMPHOCYTES # (AUTO) 1.7 X10^3/uL (1.3-2.9); MEAN CORPUSCULAR HEMOGLOBIN 31.9 pg (27.0-34.0); MEAN CORPUSCULAR HGB CONC 33.4 g/dL (33.0-35.0); MEAN CORPUSCULAR VOLUME 95.6 fL (80.0-100.0); MEAN PLATELET VOLUME 10.4 fL (7.4-11.0); MONOCYTES # (AUTO) 0.5 x10^3/uL (0.3-0.8); MONOCYTES % (AUTO) 7.2 % (0.0-13.0); NEUTROPHILS # (AUTO) 4.9 x10^3/uL (2.2-4.8); NEUTROPHILS % (AUTO) 66.8 % (42.0-75.0); PLATELET COUNT 80 X10^3/uL (150.0-450.0); RED BLOOD COUNT 3.19 X10^6/uL (3.5-5.4); RED CELL DISTRIBUTION WIDTH 17.9 % (11.6-16.5); WHITE BLOOD COUNT 7.3 X10^3/uL (3.6-10.0)
[2017-02-22] MEDS: TAB-A-VITE PO SCH (09:01)
[2017-02-22] MEDS: COMBIGAN EYE DROPS LEFTEYE SCH ×2 (09:01→21:47)
[2017-02-22] MEDS: FERROUS SULFATE PO SCH (09:01)
[2017-02-22] MEDS: ROCALTROL PO SCH (09:01)
[2017-02-22] MEDS: SYNTHROID 100 mcg TAB PO SCH (09:01)
[2017-02-22] MEDS: COREG TAB 6.25 MG PO SCH ×2 (09:01→21:48)
[2017-02-22] MEDS: PROTONIX INJ 40 MG VIAL IVP SCH ×2 (10:57→21:50)
[2017-02-22] MEDS: LASIX IVP SCH ×2 (18:33→21:50)
[2017-02-22] MEDS ORDERED: LEXAPRO ONE (21:28)
[2017-02-22] MEDS: LEXAPRO PO SCH (21:49)
[2017-02-22] MEDS: SINGULAIR TAB 10 MG PO SCH (21:49)
[2017-02-23 05:18] LABS: ALBUMIN 1.3 g/dL (3.4-5.0); CALCIUM 9.9 mg/dL (8.5-10.1); CARBON DIOXIDE 30.4 mmol/L (21-32); COR CA(FOR HYPOALB) 12.1 mg/dL (8.5-10.1); CREATININE 1.98 mg/dL (0.55-1.02); TOTAL PROTEIN 5.3 g/dL (6.4-8.2)
[2017-02-23 05:24] LABS: BASOPHILS % (AUTO) 0.3 % (0.2-1.0); EOSINOPHILS # (AUTO) 0.1 x10^3/uL (0.0-0.2); EOSINOPHILS % (AUTO) 1.7 % (0.9-2.9); HEMATOCRIT 28.6 % (36.0-47.0); HEMOGLOBIN 9.4 g/dL (12.0-16.0); LYMPHOCYTES # (AUTO) 1.8 X10^3/uL (1.3-2.9); LYMPHOCYTES % (AUTO) 20.4 % (21.0-51.0); MEAN CORPUSCULAR HEMOGLOBIN 31.3 pg (27.0-34.0); MEAN CORPUSCULAR HGB CONC 32.9 g/dL (33.0-35.0); MEAN CORPUSCULAR VOLUME 95.1 fL (80.0-100.0); MEAN PLATELET VOLUME 10.3 fL (7.4-11.0); MONOCYTES # (AUTO) 0.6 x10^3/uL (0.3-0.8); MONOCYTES % (AUTO) 7.5 % (0.0-13.0); NEUTROPHILS # (AUTO) 6.1 x10^3/uL (2.2-4.8); NEUTROPHILS % (AUTO) 70.1 % (42.0-75.0); PLATELET COUNT 82 X10^3/uL (150.0-450.0); RED BLOOD COUNT 3.01 X10^6/uL (3.5-5.4); RED CELL DISTRIBUTION WIDTH 17.6 % (11.6-16.5); WHITE BLOOD COUNT 8.7 X10^3/uL (3.6-10.0)
[2017-02-23] MEDS ORDERED: BUTT CREAM (COMPOUND) TOP PRN ×2 (06:42→06:51)
--- NOTE | 2017-02-23 09:29 | RAD ---
HISTORY: Follow up congestive heart failure Study: AP portable chest Comparison: February 19, 2017 Findings: There is a pacemaker present on the left partially obscuring the lateral aspect of the left mid lung . The heart remains enlarged. No congestive heart failure is noted. The lungs are free of acute alve olar infiltrates. A small left pleural effusion is likely. The bony thorax is unremarkable. IMPRESSION: Cardiomegaly without congestive heart fat Suspect small left pleural effusion Reported By:
[2017-02-23] MEDS: COMBIGAN EYE DROPS LEFTEYE SCH ×2 (09:38→21:11)
[2017-02-23] MEDS: COREG TAB 6.25 MG PO SCH ×2 (09:38→21:11)
[2017-02-23] MEDS: TAB-A-VITE PO SCH (09:38)
[2017-02-23] MEDS: ROCALTROL PO SCH (09:38)
[2017-02-23] MEDS: SYNTHROID 100 mcg TAB PO SCH (09:38)
[2017-02-23] MEDS: PROTONIX INJ 40 MG VIAL IVP SCH ×2 (09:38→21:40)
[2017-02-23] MEDS: FERROUS SULFATE PO SCH (09:38)
[2017-02-23] MEDS ORDERED: NS 1/2 1000 ML IV 1,000 ML IV ONE (09:52)
[2017-02-23] MEDS: NS 1/2 1000 ML IV 1,000 ML IV SCH (09:53)
[2017-02-23] MEDS: ROCEPHIN VIAL 1 GM 1 GM in NS 50 ML IV + SPIKE MINIBAG* 50 ML IV SCH (09:54)
[2017-02-23] MEDS: MAALOX or MYLANTA PO PRN (11:35)
--- NOTE | 2017-02-23 13:36 | PCM.PROG ---
Progress Note - Progress Note for Day of Date: 02/23/17 - Subjective Subjective: Mrs. Roldan is a 86-year-old female who was admitted on 02/19/2017 with dehydration, weakness, hyponatremia. Patient's sodium this morning was still elevated however somewhat improved from days prior at 149, potassium 3.2. Patient's chest x-ray revealed small left pleural effusion. Patient is on Rocephin 1 g IV daily along with respiratory therapy for treatment of opacity seen on admission chest x-ray. She continues with upper extremity third space edema. We will start half normal saline with 10 of hydration to maintain renal function continue Lasix and potassium replacement as well as elevate her extremities. We will repeat a.m. labs - Past Medical Family Social History Past Med/Fam/Surg Hx: No changes since H&P Allergies: Allergies codeine Adverse Reaction (Verified 02/12/17 17:32) dextromethorphan [From Nini DM Cough-Chest Congest] Adverse Reaction ( Verified 02/12/17 17:32) guaifenesin Adverse Reaction (Verified 02/12/17 17:32) ETHANOL Adverse Reaction (Uncoded 02/12/17 17:33) FROM JUMAITUSRODRIGO - Review of Systems ROS: No change since H&P - Vital Signs and I&O's Vital Signs: Temperature 98.5 F Pulse Rate [Right Brachial] 68 Pulse Rate 61 Respiratory Rate 19 Blood Pressure [Right Arm] 105/53 Blood Pressure [Left Arm] 131/66 Blood Pressure 174/76 O2 Sat by Pulse Oximetry 100 Intake and Output: Intake & Output 02/21/17 02/22/17 02/23/17 02/24/17 11:59 11:59 11:59 11:59 Intake Total 291 964 3402 Output Total 250 350 700 Balance 40 90 360 - Physical Exam Oriented: Person, Place Eyes: Blurred Vision, Other (blindness, chronic vision impairment) Nose: Normal Throat: Normal Respiratory: Diminished Cardiovascular: Edema : Normal Auscultation: Bowel Sounds: Normal Palpation: Normal Tenderness: Normal Skin: Other (thin, shiney, 3rd space edema to bilateral upper extremities) Musculoskeletal: Right, Left, Arm, Leg, Motor Deficit Psychiatric: Depression Speech Pattern: Clear, Appropriate - Laboratory and Diagnostics Result Diagrams: 02/23/17 04:15 02/23/17 04:15 Labs: 02/19/17 17:30 Urine,Clean Catch Urine Culture - Final 02/19/17 17:10 Blood Blood Culture - Preliminary 02/19/17 17:05 Blood Blood Culture - Preliminary Laboratory WBC 8.7 X10^3/uL (3.6-10.0) 02/23/17 04:15 RBC 3.01 X10^6/uL (3.5-5.4) L 02/23/17 04:15 Hgb 9.4 g/dL (12.0-16.0) L 02/23/17 04:15 Hct 28.6 % (36.0-47.0) L 02/23/17 04:15 MCV 95.1 fL (80.0-100.0) 02/23/17 04:15 MCH 31.3 pg (27.0-34.0) 02/23/17 04:15 MCHC 32.9 g/dL (33.0-35.0) L 02/23/17 04:15 RDW 17.6 % (11.6-16.5) H 02/23/17 04:15 Plt Count 82 X10^3/uL (150.0-450.0) L 02/23/17 04:15 MPV 10.3 fL (7.4-11.0) 02/23/17 04:15 Neut % 70.1 % (42.0-75.0) 02/23/17 04:15 Lymph % 20.4 % (21.0-51.0) L 02/23/17 04:15 [place] % 7.5 % (0.0-13.0) 02/23/17 04:15 Eos % 1.7 % (0.9-2.9) 02/23/17 04:15 Baso % 0.3 % (0.2-1.0) 02/23/17 04:15 Neut # 6.1 x10^3/uL (2.2-4.8) H 02/23/17 04:15 Lymph # 1.8 X10^3/uL (1.3-2.9) 02/23/17 04:15 [place] # 0.6 x10^3/uL (0.3-0.8) 02/23/17 04:15 Eos # 0.1 x10^3/uL (0.0-0.2) 02/23/17 04:15 Baso # 0.0 X10^3/uL (0.0-0.1) 02/23/17 04:15 Absolute Nucleated RBC 0.3 /100WBC 02/23/17 04:15 Sodium 149 mmol/L (136-145) H 02/23/17 04:15 Corrected Sodium 150 mmol/L (136-145) H 02/23/17 04:15 Potassium 3.2 mmol/L (3.5-5.1) L 02/23/17 04:15 Chloride 115 mmol/L (98-107) H* 02/23/17 04:15 Carbon Dioxide 30.4 mmol/L (21-32) 02/23/17 04:15 BUN 23 mg/dL (7-18) H 02/23/17 04:15 Creatinine 1.98 mg/dL (0.55-1.02) H 02/23/17 04:15 Est GFR (MDRD) Af Amer 31 (>60) L 02/23/17 04:15 Est GFR (MDRD) Non-Af 25 (>60) L 02/23/17 04:15 Glucose 141 mg/dL (65-99) H 02/23/17 04:15 Calcium 9.9 mg/dL (8.5-10.1) 02/23/17 04:15 Corrected Calcium 12.1 mg/dL (8.5-10.1) H 02/23/17 04:15 Iron 25 ug/dL (50-175) L 02/22/17 03:30 TIBC 59 ug/dL (250-450) L 02/22/17 03:30 % Saturation 42.4 % (11.0-46.0) 02/22/17 03:30 Total Bilirubin 0.30 mg/dL (0.2-1.0) 02/23/17 04:15 AST 24 Units/L (15-37) 02/23/17 04:15 ALT 20 Units/L (12-78) 02/23/17 04:15 Alkaline Phosphatase 70 Units/L (46-116) 02/23/17 04:15 Total Protein 5.3 g/dL (6.4-8.2) L 02/23/17 04:15 Albumin 1.3 g/dL (3.4-5.0) L 02/23/17 04:15 Globulin 4.0 g/dL (2.5-4.5) 02/23/17 04:15 Albumin/Globulin Ratio 0.3 Ratio (1.1-2.1) L 02/23/17 04:15 Free T4 0.81 ng/dL (0.76-1.46) 02/21/17 06:40 TSH 3rd Generation 32.309 uIU/mL (0.358-3.74) H 02/21/17 06:40 Specimen Type Catherized urine 02/19/17 16:45 Urine Color Yellow (YELLOW) 02/19/17 16:45 Urine Appearance Hazy (CLEAR) 02/19/17 16:45 Urine pH 5.0 (5.0 - 8.0) 02/19/17 16:45 Ur Specific [place] 1.015 (1.000-1.030) 02/19/17 16:45 Urine Protein 2+ (NEGATIVE) 02/19/17 16:45 Urine Glucose (UA) Negative (NEGATIVE) 02/19/17 16:45 Urine Ketones Negative (NEGATIVE) 02/19/17 16:45 Urine Occult Blood 1+ (NEGATIVE) 02/19/17 16:45 Urine Nitrite Negative (NEGATIVE) 02/19/17 16:45 Urine Bilirubin Negative (NEGATIVE) 02/19/17 16:45 Urine Urobilinogen Normal (NORMAL) 02/19/17 16:45 Ur Leukocyte Esterase 1+ (NEGATIVE) 02/19/17 16:45 Urine RBC 0-2 /HPF (NEGATIVE) 02/19/17 16:45 Urine WBC 0-2 /HPF (NEGATIVE) 02/19/17 16:45 Ur Squamous Epith Cells Negative /HPF (NEGATIVE) 02/19/17 16:45 Urine Bacteria Trace /HPF (NEGATIVE) 02/19/17 16:45 Ur Culture Indicated? No/not indicated 02/19/17 16:45 - Plan (1) Hypernatremia Status: Acute Plan: gentle hydration with 1/2 ns at kvo, lasix. oral intake water, strict i & os (2) Dehydration Status: Acute Plan: see above (3) CAD (coronary artery disease) Status: Chronic Qualifiers: Coronary Disease-Associated Artery/Lesion type: C [place] vs. transplanted heart: N Associated angina: A Plan: cardiac monitoring (4) CHF (congestive heart failure) Status: Chronic Qualifiers: Congestive heart failure type: C Congestive heart failure chronicity: C Plan: cxr today, bp and lipid control. lasix, o2, i & os (5) Diabetes mellitus, type II Status: Chronic Qualifiers: Diabetes mellitus complication status: D Diabetes mellitus complication detail: D Diabetic retinopathy severity: D Proliferative retinopathy type: P Diabetes mellitus macular edema: D Diabetes mellitus intermediate manager insulin use : D Laterality: L Chronic kidney disease stage: C (6) HTN (hypertension) Status: Chronic Qualifiers: Hypertension type: H
[2017-02-23 16:39] LABS: CRYPTOSPORIDIUM PARVUM ANTIGEN NEGATIVE (NEGATIVE); GIARDIA LAMBLIA ANTIGEN NEGATIVE (NEGATIVE)
[2017-02-23] MEDS ORDERED: LEXAPRO ONE (20:46)
[2017-02-23] MEDS: SINGULAIR TAB 10 MG PO SCH (21:12)
[2017-02-23] MEDS: LEXAPRO PO SCH (21:12)
[2017-02-23] MEDS: VANCOMYCIN HCL PO SCH (21:13)
[2017-02-24] MEDS: MAALOX or MYLANTA PO PRN ×2 (01:49→09:58)
[2017-02-24 05:25] LABS: BASOPHILS % (AUTO) 0.3 % (0.2-1.0); EOSINOPHILS # (AUTO) 0.1 x10^3/uL (0.0-0.2); HEMATOCRIT 29.1 % (36.0-47.0); HEMOGLOBIN 9.6 g/dL (12.0-16.0); LYMPHOCYTES # (AUTO) 1.7 X10^3/uL (1.3-2.9); LYMPHOCYTES % (AUTO) 15.7 % (21.0-51.0); MEAN CORPUSCULAR HEMOGLOBIN 31.8 pg (27.0-34.0); MEAN CORPUSCULAR HGB CONC 32.9 g/dL (33.0-35.0); MEAN CORPUSCULAR VOLUME 96.8 fL (80.0-100.0); MEAN PLATELET VOLUME 10.2 fL (7.4-11.0); MONOCYTES # (AUTO) 0.7 x10^3/uL (0.3-0.8); MONOCYTES % (AUTO) 5.9 % (0.0-13.0); NEUTROPHILS # (AUTO) 8.5 x10^3/uL (2.2-4.8); NEUTROPHILS % (AUTO) 77.1 % (42.0-75.0); PLATELET COUNT 78 X10^3/uL (150.0-450.0); RED BLOOD COUNT 3.01 X10^6/uL (3.5-5.4); RED CELL DISTRIBUTION WIDTH 17.8 % (11.6-16.5)
[2017-02-24 05:44] LABS: ALBUMIN 1.3 g/dL (3.4-5.0); CALCIUM 10.2 mg/dL (8.5-10.1); COR CA(FOR HYPOALB) 12.4 mg/dL (8.5-10.1); CREATININE 2.01 mg/dL (0.55-1.02); TOTAL PROTEIN 5.5 g/dL (6.4-8.2)
[2017-02-24] MEDS: ROCALTROL PO SCH (09:53)
[2017-02-24] MEDS: VANCOMYCIN HCL PO SCH ×4 (09:53→20:56)
[2017-02-24] MEDS: PROTONIX INJ 40 MG VIAL IVP SCH ×2 (09:53→20:56)
[2017-02-24] MEDS: FERROUS SULFATE PO SCH (09:54)
[2017-02-24] MEDS: TAB-A-VITE PO SCH (09:54)
[2017-02-24] MEDS: SYNTHROID 100 mcg TAB PO SCH (09:54)
[2017-02-24] MEDS: COREG TAB 6.25 MG PO SCH ×2 (09:54→20:56)
[2017-02-24] MEDS: COMBIGAN EYE DROPS LEFTEYE SCH ×2 (09:54→20:57)
[2017-02-24] MEDS: ROCEPHIN VIAL 1 GM 1 GM in NS 50 ML IV + SPIKE MINIBAG* 50 ML IV SCH (09:55)
[2017-02-24] MEDS: VSL#3 PO SCH (09:55)
[2017-02-24] MEDS: LANTISEPTIC TOP SCH ×4 (09:58→20:57)
[2017-02-24] MEDS: NS 1/2 1000 ML IV 1,000 ML IV SCH (09:59)
[2017-02-24] MEDS ORDERED: NS 1/2 1000 ML IV 1,000 ML IV ONE (10:00)
[2017-02-24] MEDS ORDERED: LEXAPRO ONE (20:29)
[2017-02-24] MEDS: LEXAPRO PO SCH (20:56)
[2017-02-24] MEDS: SINGULAIR TAB 10 MG PO SCH (20:56)
[2017-02-25 06:05] LABS: ALBUMIN 1.4 g/dL (3.4-5.0); CALCIUM 10.6 mg/dL (8.5-10.1); CARBON DIOXIDE 29.2 mmol/L (21-32); COR CA(FOR HYPOALB) 12.7 mg/dL (8.5-10.1); CREATININE 2.07 mg/dL (0.55-1.02); TOTAL PROTEIN 5.9 g/dL (6.4-8.2)
[2017-02-25 06:19] LABS: BASOPHILS % (AUTO) 0.4 % (0.2-1.0); EOSINOPHILS # (AUTO) 0.1 x10^3/uL (0.0-0.2); EOSINOPHILS % (AUTO) 0.6 % (0.9-2.9); HEMATOCRIT 28.4 % (36.0-47.0); HEMOGLOBIN 9.4 g/dL (12.0-16.0); LYMPHOCYTES # (AUTO) 1.5 X10^3/uL (1.3-2.9); MEAN CORPUSCULAR HEMOGLOBIN 31.8 pg (27.0-34.0); MEAN CORPUSCULAR HGB CONC 33.2 g/dL (33.0-35.0); MEAN CORPUSCULAR VOLUME 95.7 fL (80.0-100.0); MEAN PLATELET VOLUME 10.4 fL (7.4-11.0); MONOCYTES # (AUTO) 0.5 x10^3/uL (0.3-0.8); MONOCYTES % (AUTO) 4.7 % (0.0-13.0); NEUTROPHILS # (AUTO) 9.2 x10^3/uL (2.2-4.8); NEUTROPHILS % (AUTO) 81.3 % (42.0-75.0); PLATELET COUNT 91 X10^3/uL (150.0-450.0); RED BLOOD COUNT 2.97 X10^6/uL (3.5-5.4); RED CELL DISTRIBUTION WIDTH 17.7 % (11.6-16.5); WHITE BLOOD COUNT 11.4 X10^3/uL (3.6-10.0)
[2017-02-25] MEDS ORDERED: K-LYTE EFFERVESCENT PO PRN (09:05)
[2017-02-25] MEDS ORDERED: POTASSIUM CHLORIDE LIQ 20 MEQ UDC PO PRN (09:05)
[2017-02-25] MEDS ORDERED: K-DUR TAB 20 MEQ PO PRN (09:05)
[2017-02-25] MEDS ORDERED: K-RIDER 10 MEQ/NS 100 ML 10 MEQ/100 ML BAG IV PRN (09:05)
[2017-02-25] MEDS: VSL#3 PO SCH (09:35)
[2017-02-25] MEDS: PROTONIX INJ 40 MG VIAL IVP SCH ×2 (09:35→20:19)
[2017-02-25] MEDS: ROCEPHIN VIAL 1 GM 1 GM in NS 50 ML IV + SPIKE MINIBAG* 50 ML IV SCH (09:35)
[2017-02-25] MEDS: ROCALTROL PO SCH (09:36)
[2017-02-25] MEDS: COREG TAB 6.25 MG PO SCH ×2 (09:36→20:19)
[2017-02-25] MEDS: TAB-A-VITE PO SCH (09:36)
[2017-02-25] MEDS: VANCOMYCIN HCL PO SCH ×4 (09:36→20:19)
[2017-02-25] MEDS: FERROUS SULFATE PO SCH (09:36)
[2017-02-25] MEDS: SYNTHROID 100 mcg TAB PO SCH (09:36)
[2017-02-25] MEDS: LANTISEPTIC TOP SCH ×4 (09:37→20:19)
[2017-02-25] MEDS: COMBIGAN EYE DROPS LEFTEYE SCH ×2 (09:37→20:19)
[2017-02-25] MEDS: NS 1/2 1000 ML IV 1,000 ML IV SCH (16:07)
--- NOTE | 2017-02-25 17:37 | PCM.PROG ---
Progress Note - Progress Note for Day of Date: 02/25/17 - Subjective Subjective: Mrs. Roldan is a 86-year-old white female who was a readmission to [facility] with severe dehydration and hypernatremia. Patient has multiple chronic diseases including CHF, hypertension, and a lung mass. Patient has been placed in [facility] for long-term placement. We do have a bed available for her at this time however patient was diagnosed with CAD and it has been treated with vancomycin and continues to have loose stool. When this is stabilized she will be ready for discharge patient's sodium was much improved today we will continue current therapy and repeat a.m. labs and chest x-ray - Past Medical Family Social History Past Med/Fam/Surg Hx: No changes since H&P Allergies: Allergies codeine Adverse Reaction (Verified 02/12/17 17:32) dextromethorphan [From Nini DM Cough-Chest Congest] Adverse Reaction ( Verified 02/12/17 17:32) guaifenesin Adverse Reaction (Verified 02/12/17 17:32) ETHANOL Adverse Reaction (Uncoded 02/12/17 17:33) FROM [place] - Review of Systems ROS: No change since H&P - Vital Signs and I&O's Vital Signs: Temperature 97.6 F Pulse Rate [Left Brachial] 62 Pulse Rate [Right Brachial] 70 Pulse Rate 71 Respiratory Rate 28 Blood Pressure [Right Arm] 125/58 Blood Pressure [Left Arm] 118/61 Blood Pressure 174/76 O2 Sat by Pulse Oximetry 100 Intake and Output: Intake & Output 02/23/17 02/24/17 02/25/17 02/26/17 11:59 11:59 11:59 11:59 Intake Total 1060 530 970 0 Output Total 700 400 275 100 Balance 360 130 695 -100 - Physical Exam Oriented: Person, Place Eyes: Blurred Vision, Other (blindness, chronic vision impairment) Nose: Normal Throat: Normal Respiratory: Diminished Cardiovascular: Edema : Normal Auscultation: Bowel Sounds: Normal Tenderness: Normal Skin: Other (thin, shiney, 3rd space edema to bilateral upper extremities) Musculoskeletal: Right, Left, Arm, Leg, Motor Deficit Psychiatric: Depression Speech Pattern: Clear, Appropriate - Laboratory and Diagnostics Result Diagrams: 02/25/17 04:20 02/25/17 04:20 Labs: 02/19/17 17:10 Blood Blood Culture - Final 02/19/17 17:05 Blood Blood Culture - Final 02/23/17 15:15 Stool Stool Culture - Final 02/23/17 15:15 Stool - Final 02/19/17 17:30 Urine,Clean Catch Urine Culture - Final Laboratory WBC 11.4 X10^3/uL (3.6-10.0) H 02/25/17 04:20 RBC 2.97 X10^6/uL (3.5-5.4) L 02/25/17 04:20 Hgb 9.4 g/dL (12.0-16.0) L 02/25/17 04:20 Hct 28.4 % (36.0-47.0) L 02/25/17 04:20 MCV 95.7 fL (80.0-100.0) 02/25/17 04:20 MCH 31.8 pg (27.0-34.0) 02/25/17 04:20 MCHC 33.2 g/dL (33.0-35.0) 02/25/17 04:20 RDW 17.7 % (11.6-16.5) H 02/25/17 04:20 Plt Count 91 X10^3/uL (150.0-450.0) L 02/25/17 04:20 MPV 10.4 fL (7.4-11.0) 02/25/17 04:20 Neut % 81.3 % (42.0-75.0) H 02/25/17 04:20 Lymph % 13.0 % (21.0-51.0) L 02/25/17 04:20 [place] % 4.7 % (0.0-13.0) 02/25/17 04:20 Eos % 0.6 % (0.9-2.9) L 02/25/17 04:20 Baso % 0.4 % (0.2-1.0) 02/25/17 04:20 Neut # 9.2 x10^3/uL (2.2-4.8) H 02/25/17 04:20 Lymph # 1.5 X10^3/uL (1.3-2.9) 02/25/17 04:20 [place] # 0.5 x10^3/uL (0.3-0.8) 02/25/17 04:20 Eos # 0.1 x10^3/uL (0.0-0.2) 02/25/17 04:20 Baso # 0.0 X10^3/uL (0.0-0.1) 02/25/17 04:20 Absolute Nucleated RBC 0.4 /100WBC 02/25/17 04:20 Sodium 148 mmol/L (136-145) H 02/25/17 04:20 Corrected Sodium 149 mmol/L (136-145) H 02/25/17 04:20 Potassium 2.8 mmol/L (3.5-5.1) L* 02/25/17 04:20 Chloride 114 mmol/L (98-107) H 02/25/17 04:20 Carbon Dioxide 29.2 mmol/L (21-32) 02/25/17 04:20 BUN 28 mg/dL (7-18) H 02/25/17 04:20 Creatinine 2.07 mg/dL (0.55-1.02) H 02/25/17 04:20 Est GFR (MDRD) Af Amer 29 (>60) L 02/25/17 04:20 Est GFR (MDRD) Non-Af 24 (>60) L 02/25/17 04:20 Glucose 152 mg/dL (65-99) H 02/25/17 04:20 Calcium 10.6 mg/dL (8.5-10.1) H 02/25/17 04:20 Corrected Calcium 12.7 mg/dL (8.5-10.1) H 02/25/17 04:20 Iron 25 ug/dL (50-175) L 02/22/17 03:30 TIBC 59 ug/dL (250-450) L 02/22/17 03:30 % Saturation 42.4 % (11.0-46.0) 02/22/17 03:30 Total Bilirubin 0.30 mg/dL (0.2-1.0) 02/25/17 04:20 AST 29 Units/L (15-37) 02/25/17 04:20 ALT 24 Units/L (12-78) 02/25/17 04:20 Alkaline Phosphatase 71 Units/L (46-116) 02/25/17 04:20 Total Protein 5.9 g/dL (6.4-8.2) L 02/25/17 04:20 Albumin 1.4 g/dL (3.4-5.0) L 02/25/17 04:20 Globulin 4.5 g/dL (2.5-4.5) 02/25/17 04:20 Albumin/Globulin Ratio 0.3 Ratio (1.1-2.1) L 02/25/17 04:20 Free T4 0.81 ng/dL (0.76-1.46) 02/21/17 06:40 TSH 3rd Generation 32.309 uIU/mL (0.358-3.74) H 02/21/17 06:40 Specimen Type Catherized urine 02/19/17 16:45 Urine Color Yellow (YELLOW) 02/19/17 16:45 Urine Appearance Hazy (CLEAR) 02/19/17 16:45 Urine pH 5.0 (5.0 - 8.0) 02/19/17 16:45 Ur Specific [place] 1.015 (1.000-1.030) 02/19/17 16:45 Urine Protein 2+ (NEGATIVE) 02/19/17 16:45 Urine Glucose (UA) Negative (NEGATIVE) 02/19/17 16:45 Urine Ketones Negative (NEGATIVE) 02/19/17 16:45 Urine Occult Blood 1+ (NEGATIVE) 02/19/17 16:45 Urine Nitrite Negative (NEGATIVE) 02/19/17 16:45 Urine Bilirubin Negative (NEGATIVE) 02/19/17 16:45 Urine Urobilinogen Normal (NORMAL) 02/19/17 16:45 Ur Leukocyte Esterase 1+ (NEGATIVE) 02/19/17 16:45 Urine RBC 0-2 /HPF (NEGATIVE) 02/19/17 16:45 Urine WBC 0-2 /HPF (NEGATIVE) 02/19/17 16:45 Ur Squamous Epith Cells Negative /HPF (NEGATIVE) 02/19/17 16:45 Urine Bacteria Trace /HPF (NEGATIVE) 02/19/17 16:45 Ur Culture Indicated? No/not indicated 02/19/17 16:45 Stool Description 2g,loose,dark green 02/23/17 15:15 Stl Occult Blood (IFOB) Positive (NEGATIVE) A 02/23/17 15:15 Stool for White Cells No wbc's seen (None) 02/23/17 15:15 Stl C. diff Tox B Gene Positive (NEGATIVE) A 02/23/17 15:15 Stl C. diff [id number] Negative (NEGATIVE) 02/23/17 15:15 Cryptosporid parvum Ag Negative (NEGATIVE) 02/23/17 15:15 E. histolytica Antigen Negative (NEGATIVE) 02/23/17 15:15 Giardia lamblia Ag Negative (NEGATIVE) 02/23/17 15:15 - Plan (1) Hypernatremia Status: Acute Plan: gentle hydration with 1/2 ns at kvo, lasix. oral intake water, strict i & os (2) Dehydration Status: Acute Plan: see above (3) CAD (coronary artery disease) Status: Chronic Plan: cardiac monitoring (4) CHF (congestive heart failure) Status: Chronic Plan: cxr today, bp and lipid control. lasix, o2, i & os (5) Diabetes mellitus, type II Status: Chronic (6) HTN (hypertension) Status: Chronic (7) UTI (urinary tract infection) Status: Acute Plan: iv atbx, iv hydration, oral water intake. nursing care, frequest changes , good hygeine (8) C. difficile colitis Status: Acute Plan: vancomycin
[2017-02-25] MEDS ORDERED: LEXAPRO ONE (20:15)
[2017-02-25] MEDS: SINGULAIR TAB 10 MG PO SCH (20:19)
[2017-02-25] MEDS: LEXAPRO PO SCH (20:19)
[2017-02-26] MEDS ORDERED: NS 1/2 1000 ML IV 1,000 ML IV ONE (05:24)
[2017-02-26] MEDS: NS 1/2 1000 ML IV 1,000 ML IV SCH (05:28)
[2017-02-26 05:55] LABS: BASOPHILS % (AUTO) 0.3 % (0.2-1.0); EOSINOPHILS # (AUTO) 0.1 x10^3/uL (0.0-0.2); EOSINOPHILS % (AUTO) 0.4 % (0.9-2.9); HEMATOCRIT 26.7 % (36.0-47.0); HEMOGLOBIN 9.1 g/dL (12.0-16.0); LYMPHOCYTES # (AUTO) 1.7 X10^3/uL (1.3-2.9); LYMPHOCYTES % (AUTO) 13.3 % (21.0-51.0); MEAN CORPUSCULAR HEMOGLOBIN 32.4 pg (27.0-34.0); MEAN CORPUSCULAR HGB CONC 34.2 g/dL (33.0-35.0); MEAN CORPUSCULAR VOLUME 94.8 fL (80.0-100.0); MEAN PLATELET VOLUME 10.5 fL (7.4-11.0); MONOCYTES # (AUTO) 0.5 x10^3/uL (0.3-0.8); MONOCYTES % (AUTO) 4.2 % (0.0-13.0); NEUTROPHILS # (AUTO) 10.2 x10^3/uL (2.2-4.8); NEUTROPHILS % (AUTO) 81.8 % (42.0-75.0); PLATELET COUNT 101 X10^3/uL (150.0-450.0); RED BLOOD COUNT 2.82 X10^6/uL (3.5-5.4); RED CELL DISTRIBUTION WIDTH 17.5 % (11.6-16.5); WHITE BLOOD COUNT 12.4 X10^3/uL (3.6-10.0)
[2017-02-26 05:57] LABS: ALANINE AMINOTRANSFERASE 22 Units/L (12-78); ALBUMIN 1.4 g/dL (3.4-5.0); ALKALINE PHOSPHATASE 72 Units/L (46-116); ASPARTATE AMINO TRANSFERASE 22 Units/L (15-37); BLOOD UREA NITROGEN 30 mg/dL (7-18); CALCIUM 10.1 mg/dL (8.5-10.1); CARBON DIOXIDE 28.7 mmol/L (21-32); CHLORIDE 112 mmol/L (98-107); COR CA(FOR HYPOALB) 12.2 mg/dL (8.5-10.1); CREATININE 2.08 mg/dL (0.55-1.02); GLUCOSE 73 mg/dL (65-99); SODIUM 147 mmol/L (136-145); TOTAL PROTEIN 5.8 g/dL (6.4-8.2); eGFR BLACK RACES 29 (>60); eGFR NON BLACK RACES 24 (>60)
--- NOTE | 2017-02-26 06:40 | RAD ---
HISTORY: Congestive heart failure Study: AP portable chest Comparison: February 23, 2017 Findings: There is a pacemaker present in the left axilla. The patient is rotated to the left. The heart is upp er limits normal in size. The aorta is calcified. No congestive heart failure is present. No definite acute alveolar infiltrates are identified. No definite pleural effusions are identified. IMPRESSION: No evidence for congestive heart failure on today's examination. No infiltrates Reported By:
[2017-02-26] MEDS ORDERED: NS 1/2 1000 ML IV 1,000 ML with POTASSIUM CHLORIDE INJ 40 MEQ VIAL 40 MEQ IV SCH ×2 (09:00)
[2017-02-26] MEDS: ROCEPHIN VIAL 1 GM 1 GM in NS 50 ML IV + SPIKE MINIBAG* 50 ML IV SCH (10:24)
[2017-02-26] MEDS: COREG TAB 6.25 MG PO SCH (10:25)
[2017-02-26] MEDS: VSL#3 PO SCH (10:25)
[2017-02-26] MEDS: PROTONIX INJ 40 MG VIAL IVP SCH (10:25)
[2017-02-26] MEDS: VANCOMYCIN HCL PO SCH ×3 (10:26→14:10)
[2017-02-26] MEDS: ROCALTROL PO SCH (10:26)
[2017-02-26] MEDS: TAB-A-VITE PO SCH (10:26)
[2017-02-26] MEDS: SYNTHROID 100 mcg TAB PO SCH (10:27)
[2017-02-26] MEDS: LANTISEPTIC TOP SCH ×2 (10:27→13:00)
[2017-02-26] MEDS: COMBIGAN EYE DROPS LEFTEYE SCH (10:27)
[2017-02-26] MEDS: FERROUS SULFATE PO SCH (11:04)
[2017-02-26] MEDS ORDERED: K-LYTE EFFERVESCENT ONE (13:31)
[2017-02-26] MEDS ORDERED: NYSTATIN POWDER ONE (13:46)
[2017-02-26] MEDS ORDERED: MAGNESIUM SULFATE 1 GM/100 mL PREMIX 1 GM/100 ML BAG IV ONE (14:00)
[2017-02-26 14:47] VITALS: BP 123/66
[2017-02-27] MEDS ORDERED: K-LYTE EFFERVESCENT PO ONE (13:39)
== END 2017-02-26 14:15 | disposition expired | DRG 641 ==
LOC: MED/SURG 13:53
PROVIDERS: ADMIT Internal Medicine; ATTEND Internal Medicine
DX: E86.0 Dehydration (principal); E87.0 Hyperosmolality and hypernatremia; R62.7 Adult failure to thrive; R41.82 Altered mental status, unspecified; R60.0 Localized edema; R53.1 Weakness; E88.09 Other disorders of plasma-protein metabolism, not elsewhere classified; E46 Unspecified protein-calorie malnutrition; R63.0 Anorexia; K25.9 Gastric ulcer, unspecified as acute or chronic, without hemorrhage or perforation; K26.9 Duodenal ulcer, unspecified as acute or chronic, without hemorrhage or perforation; R94.4 Abnormal results of kidney function studies; J90 Pleural effusion, not elsewhere classified; I25.10 Atherosclerotic heart disease of native coronary artery without angina pectoris; I50.9 Heart failure, unspecified; E11.65 Type 2 diabetes mellitus with hyperglycemia; I10 Essential (primary) hypertension; A04.7 Enterocolitis due to Clostridium difficile; R91.8 Other nonspecific abnormal finding of lung field; I46.8 Cardiac arrest due to other underlying condition
CPT/HCPCS: 36415; 71010; 80053; 81001; 82270; 83540; 83550; 83735; 84439; 84443; 85025; 87040; 87045; 87086; 87205; 87328; 87329; 87336; 87427; 87493; 87899; 93005; 93010; 94760; A4222; C9113; J0696; J1940; J3480